=== PATIENT | female | born 1950 | race Caucasian/White ===

== ENCOUNTER → 2020-07-01 10:03 | Outpatient (BNVA) | payer MEDICARE, SELFPAY | PROVIDERS: PCP Internal Medicine; Visit Provider Internal Medicine Cardiovascular Disease | DX: I10 Essential (primary) hypertension (principal); R00.2 Palpitations | CPT/HCPCS: 93005; 99202 ==

== ENCOUNTER 2020-07-12 08:24 | Outpatient (REF) | payer MEDICARE, SELFPAY ==
[2020-07-12 11:03] LABS: MANUAL DIFF FLAG NO
[2020-07-12 11:10] LABS: Basophils Percent Auto 0.5 % (0-2); Eosinophils Absolute Auto 0.1 X10*3/uL (0.0-0.4); Eosinophils Percent Auto 2.2 % (0-4); Hematocrit 43.2 % (37-47); Lymphocytes Absolute Auto 1.3 X10*3/uL (1.2-4.9); Lymphocytes Percent Auto 33.2 % (20-40); Mean Corpuscular HGB Conc 32.4 g/dl (31.0-35.0); Mean Corpuscular Hemoglobin 31.5 pg (27.0-33.0); Mean Corpuscular Volume 97.3 fL (80-98); Mean Platelet Volume 11.1 fL (9.4-12.3); Monocytes Absolute Auto 0.3 X10*3/uL (0.1-1.2); Monocytes Percent Auto 7.2 % (2-11); Neutrophils Absolute Auto 2.3 X10*3/uL (2.0-8.3); Neutrophils Percent Auto 56.9 % (45-73); Platelet Count 211 X10*3/uL (160-400); Red Blood Count 4.44 X10*6/uL (4.20-5.50); Red Cell Distribution Width 12.4 % (11.0-16.0)
[2020-07-12 11:29] LABS: Alanine Aminotransferase 26 U/L (0-31); Albumin Level 4.1 g/dL (3.5-5.0); Alkaline Phosphatase 57 U/L (39-117); Anion Gap 11 (12-20); Aspartate Amino Transferase 33 U/L (5-31); Bilirubin Total 0.9 mg/dL (0.0-1.0); Blood Urea Nitrogen 12 mg/dL (9-16); Calcium 9.2 mg/dL (8.4-10.2); Carbon Dioxide 31 mmol/L (22-29); Chloride 105 mmol/L (96-108); Cholesterol 194 mg/dL; Estimated Glomerular Filt Rate > 60; Glucose Fasting 85 mg/dL (60-99); HDL Cholesterol 87 mg/dL; LDL Cholesterol Calculated 94 mg/dl; Potassium 4.9 mmol/L (3.3-5.1); Sodium 142 mmol/L (135-145); Total Protein 6.8 g/dL (6.5-8.0); Triglycerides 69 mg/dL
== END 2020-07-12 08:25 | disposition home or self-care (01) ==
LOC: HO.HMGCLDS 08:24
PROVIDERS: PCP Internal Medicine; Visit Provider Internal Medicine
DX: R00.2 Palpitations (principal); E78.5 Hyperlipidemia, unspecified; I10 Essential (primary) hypertension; K27.9 Peptic ulcer, site unspecified, unspecified as acute or chronic, without hemorrhage or perforation; M85.859 Other specified disorders of bone density and structure, unspecified thigh; Z78.0 Asymptomatic menopausal state
CPT/HCPCS: 36415; 80053; 80061; 82306; 85025

== ENCOUNTER 2020-11-24 07:49 | Outpatient (REF) | payer MEDICARE, SELFPAY ==
[2020-11-24 12:07] LABS: Alanine Aminotransferase 24 U/L (0-31); Aspartate Amino Transferase 32 U/L (5-31); Cholesterol 210 mg/dL; HDL Cholesterol 82 mg/dL; LDL Cholesterol Calculated 116 mg/dl; Triglycerides 64 mg/dL
== END 2020-11-24 07:50 | disposition home or self-care (01) ==
LOC: HO.HMGCLDS 07:49
PROVIDERS: PCP Internal Medicine; Visit Provider Internal Medicine
DX: E78.5 Hyperlipidemia, unspecified (principal)
CPT/HCPCS: 36415; 80061; 84450; 84460

== ENCOUNTER 2020-12-19 09:01 | Emergency (ER) | payer MEDICARE, SELFPAY ==
--- NOTE | 2020-12-19 | ECG_ITS ---
Test Reason : CHEST PAIN Blood Pressure : / mmHG Vent. Rate : 057 BPM Atrial Rate : 057 BPM P-R Int : 198 ms QRS Dur : 082 ms QT Int : 382 ms P-R-T Axes : 056 -10 041 degrees QTc Int : 371 ms Sinus bradycardia Otherwise normal ECG When compared with ECG of 12-MAR-2019 08:33, No significant change was found Referred By: Generic ED Physician Electronically Signed By:YOSHI ANGUIANO
--- NOTE | ~2020-12-19 | CT_ITS ---
EXAMINATION: CT ANGIOGRAM OF THE CHEST WITH AND WITHOUT CONTRAST (CT PULMONARY ANGIOGRAM FOR PE) CLINICAL INFORMATION: Reason for Exam Rule out PE/dissection. Substernal CP rad to back RUE COMPARISON: Chest x-ray of same day TECHNIQUE: Prior to contrast administration, noncontrast localization images were obtained. Subsequently, multidetector volumetric imaging was performed from the thoracic inlet to below the diaphragms following the administration of 80 mL Omnipaque 350 intravenous contrast. No contrast reaction reported Sagittal, coronal, and MIP oblique sagittal reformatted images were obtained on the CT workstation, uploaded to PACS, and reviewed. This CT examination was performed using dose optimization techniques as appropriate, variously including the following: *Automated exposure control *Adjustment of mA and/or kV according to patient size (this includes techniques or standardized protocols for targeted exams where dose is matched to indication/reason for exam; i.e. extremities or head) *Use of iterative reconstruction technique Total exam dose-length product 205 mGy-cm FINDINGS: Motion artifact present. QUALITY OF STUDY/CONTRAST BOLUS: Satisfactory. PULMONARY ARTERIES: No central or segmental pulmonary emboli. THORACIC AORTA: No aneurysm or dissection. LUNG: Central airways are patent. Mild changes of centrilobular emphysema seen within the upper lobes. No confluent lung disease identified. No significant bronchial wall thickening or bronchiectasis. There are some calcified granulomas. No suspicious lung lesions. PLEURA: No pleural effusion or pneumothorax. MEDIASTINUM: Normal heart size. No pericardial effusion. No hilar or mediastinal lymphadenopathy. No evidence of septal bowing or right heart strain. CHEST WALL/AXILLA: No axillary or internal mammary lymphadenopathy. OSSEOUS STRUCTURES: No acute or suspicious osseous abnormality. UPPER ABDOMEN: Unremarkable. No reflux of contrast into the hepatic veins to suggest elevated right heart pressures. CT/CT angio chest PE protocol IMPRESSION: No evidence of acute pulmonary artery embolus. No thoracic aortic aneurysm or dissection. Old granulomatous disease. VTE: negative
--- NOTE | ~2020-12-19 | XR_ITS ---
EXAMINATION: XR CHEST CLINICAL INFORMATION: Chest pain COMPARISON: None TECHNIQUE: 2 views of the chest were obtained. FINDINGS: Slight ectasia of the aortic arch. Mild tortuosity of the descending aorta. No mediastinal widening. Cardiac size is within normal limits with left ventricular configuration. There is no hilar mass. No vascular congestion. Lung volumes are within normal limits. No consolidation or major zone of atelectasis. The visualized pleural margins are within normal limits. There is some osteopenia with minimal degenerative change in the spine. XR/XR chest 2V IMPRESSION: No pneumonia or edema.
[2020-12-19 09:27] VITALS: BP 145/76; PULSE 65; RESP 18; TEMP 37; O2SAT 100; BMI 26.6
[2020-12-19 09:44] LABS: MANUAL DIFF FLAG NO
[2020-12-19 10:00] VITALS: BP 145/78; PULSE 60; TEMP 36.8; O2SAT 100
[2020-12-19 10:09] LABS: B Type Natriuretic Peptide 74 pg/mL (<100)
[2020-12-19 10:12] LABS: Basophils Percent Auto 0.5 % (0-2); Eosinophils Absolute Auto 0.1 X10*3/uL (0.0-0.4); Eosinophils Percent Auto 1.4 % (0-4); Hemoglobin 12.9 g/dl (12.0-16.0); Imm Gran Abs Auto 0.01 X10*3/uL (0.00-0.03); Imm Gran Pct Auto 0.3 % (0.0-0.4); Lymphocytes Absolute Auto 0.9 X10*3/uL (1.2-4.9); Lymphocytes Percent Auto 23.2 % (20-40); Mean Corpuscular HGB Conc 33.9 g/dl (31.0-35.0); Mean Corpuscular Hemoglobin 32.2 pg (27.0-33.0); Mean Corpuscular Volume 94.8 fL (80-98); Mean Platelet Volume 9.7 fL (9.4-12.3); Monocytes Absolute Auto 0.3 X10*3/uL (0.1-1.2); Monocytes Percent Auto 8.7 % (2-11); Neutrophils Absolute Auto 2.4 X10*3/uL (2.0-8.3); Neutrophils Percent Auto 65.9 % (45-73); Platelet Count 188 X10*3/uL (160-400); Red Blood Count 4.01 X10*6/uL (4.20-5.50); Red Cell Distribution Width 12.1 % (11.0-16.0); White Blood Count 3.7 X10*3/uL (4.8-10.8)
[2020-12-19 10:19] LABS: Alanine Aminotransferase 20 U/L (0-31); Albumin Level 3.7 g/dL (3.5-5.0); Alkaline Phosphatase 50 U/L (39-117); Anion Gap 11 (12-20); Aspartate Amino Transferase 33 U/L (5-31); Bilirubin Direct 0.2 mg/dL (0.0-0.5); Bilirubin Total 0.5 mg/dL (0.0-1.0); Blood Urea Nitrogen 8 mg/dL (9-16); Calcium 8.9 mg/dL (8.4-10.2); Carbon Dioxide 27 mmol/L (22-29); Chloride 100 mmol/L (96-108); Creatinine Clr Calc Pharmacy 49.3; Estimated Glomerular Filt Rate > 60; Glucose Random 99 mg/dL (60-115); Lipase 55 U/L (8-78); Magnesium 1.9 mg/dL (1.6-2.6); Potassium 4.7 mmol/L (3.3-5.1); Sodium 133 mmol/L (135-145); Total Protein 6.2 g/dL (6.5-8.0)
--- NOTE | 2020-12-19 10:20 | ED.CHESTPAIN ---
HPI - Chest Pain General Chief Complaint: Chest Pain Stated Complaint: CHEST PAIN Time Seen by Provider: 12/19/20 09:10 Source: patient Mode of arrival: ambulatory History of Present Illness HPI narrative: 70-year-old female with a past medical history of anxiety, diverticulitis, hyperlipidemia, GERD, HTN, palpitations, IBS, PUD, presenting to the ED complaining of substernal/right-sided chest pressure radiating to back and RUE waking up from sleep starting around 4:00 a.m. Pain described as sharp, with associated SOB, nausea, chills, and RUE weakness secondary to pain. Reports pain worse with deep breathing/movement. Denies fever, abdominal pain, vomiting/diarrhea, LE edema, recent travel, sick contacts, history of blood clots Related Data Home Medications Medication Instructions Recorded Confirmed antiarthritic combination no.2 900 mg PO 06/22/20 11/30/20 mg tablet calcium carbonate 600 mg (1,500 cap PO 06/22/20 11/30/20 mg)-vitamin D3 500 unit capsule fexofenadine 180 mg tablet 180 mg PO DAILY 06/22/20 11/30/20 flu vacc [id number](65yr up)-PF 240 ml IM 06/22/20 11/30/20 mcg/0.7 mL intramuscular syringe lutein 20 mg capsule 20 mg PO DAILY 06/22/20 11/30/20 meclizine 25 mg tablet 25 mg PO Q8H PRN 06/22/20 11/30/20 omega-3 fatty acids 1,000 mg 1,000 mg PO DAILY 06/22/20 11/30/20 capsule omeprazole 20 mg capsule,delayed 20 mg PO BID 06/22/20 11/30/20 release propylene glycol 0.6 % eye drops 1 drp OPHTHALMIC (EYE) DAILY PRN 06/22/20 11/30/20 varicella-zoster glycoE [id number] IM 06/22/20 11/30/20 adj(PF) 50 mcg/0.5 mL IM susp, kit coenzyme [id number] 100 mg-100 cap PO .QOD cap 09/29/20 11/30/20 unit capsule docusate sodium 100 mg capsule 100 mg PO .qod cap 09/29/20 11/30/20 wheat dextrin 3 gram/3.5 gram oral 1.5 g PO BID 09/29/20 11/30/20 powder Previous Rx's Medication Instructions Recorded carvedilol 3.125 mg tablet 3.125 mg PO BID #120 tab 07/01/20 atorvastatin 40 mg tablet 40 mg PO DAILY #90 tab 12/13/20 vitamin with calcium 1 tab PO DAILY #90 tab 12/13/20 no.72-iron 27 mg-folic acid 1 mg tablet Allergies Allergy/AdvReac Type Severity Reaction Status Date / Time metronidazole [From FLAGYL] AdvReac Mild ANOREXIA Verified 11/30/20 11:49 From Avelox AdvReac Mild NASUEA,CONF Uncoded 02/12/20 16:00 USION Review of Systems Review of Systems: Constitutional: No Fever, + Chills, No Fatigue, No Malaise Eyes: No Eye Pain, No Vision Changes Cardiovascular: + Chest Pain, No SOB, No Edema, No Palpitations Respiratory: No Cough, No Dyspnea Gastrointestinal: + Nausea, No Vomiting, No Diarrhea, No Constipation, No Abdominal pain Genitourinary: No Dysuria, No Hematuria Musculoskeletal: No joint pain, No Myalgias, No Joint Swelling Skin: No Skin Lesions, No rash Neuro: + Weakness, No Numbness, No Dizziness, No Headache Yes all other systems are reviewed and are negative [facility] Past Medical History Attestation statement: The following information was validated with the patient. Medical History Anxiety Cemento-osseous dysplasia Diverticulitis Dyslipidemia Esophagus, Sharma's Essential hypertension GERD with stricture Intermittent palpitations Irritable bowel syndrome with constipation Osteopenia of hip PUD (peptic ulcer disease) Salivary duct obstruction Skin lesion of back Surgical History Hx of colonoscopy Family History Family History Father No problems noted. Mother No problems noted. Brother Hypertension Other Substance abuse Social History Social History Alcohol intake: current Patient Tobacco Use Status: Former Tobacco user Tobacco use type: Cigarette Cigarette Packs Per Day: 3 Cigarettes Per Day: 60 Years Smoked: 20 Advance Directives: Yes Advance Directives Information Provided: Yes Advance Directives on File: No Physical Exam Vital Signs: Vital Signs: Last Vital Signs Temp 98.2 F 12/19/20 10:00 Pulse 60 12/19/20 10:00 Resp 18 12/19/20 09:27 BP 145/78 H 12/19/20 10:00 Pulse Ox 100 12/19/20 10:00 Body Mass Index 26.6 Const: General: cooperative, healthy appearing and no acute distress Orientation/consciousness: patient oriented x3 Limitations: no limitations HENMT: Head: Yes normal to inspection Ears: hearing grossly normal bilaterally General nose exam: Normal external nose present Face and sinus: Yes normal facial exam Eyes: General: appearance normal, both eyes and all related structures EOM: EOMs intact bilaterally Neck: Neck: Yes normal visual inspection and Yes no meningeal signs Chest: Chest palpation & inspection: normal inspection of the chest and no crepitus Resp: Effort & Inspection: normal respiratory effort Auscultation: clear to auscultation bilaterally, no rales, no rhonchi and no wheezes Cardio: Rate: regular rate Heart sounds: S1 normal heart sound present and S2 normal heart sound present GI: Inspection: Yes normal to inspection Palpation (GI): Soft to palpation, nontender, no guarding and not rigid Skin: Rashes: no rashes Wounds: no wounds Neuro: General: patient oriented x3, tone normal, moves all extremities, no meningeal signs and no focal motor deficits Gait exam (Neuro): Normal gait present Motor exam (neuro): 5/5 motor strength present throughout Extrem: General: Yes normal to inspection, Yes no pedal edema and Yes no calf tenderness Course Course Course Narrative: -1029--chronic leukopenia 3.7, H&H is stable, mild hyponatremia of 133, labs otherwise unremarkable/at pts baseline, initial troponin 4 >> will obtain 3 hour repeat XR chest 2V IMPRESSION: No pneumonia or edema. >> will obtain CTA to rule out PE/dissection 1249-CT angio chest PE protocol IMPRESSION: No evidence of acute pulmonary artery embolus. No thoracic aortic aneurysm or dissection. Old granulomatous disease. VTE: negative -1316--repeat troponin 6.3, 50% rise will consult Cardiology. Spoke to Cardiology, , unlikely be cardiac in nature with troponins being so low & patients with active chest pain. Recommended DC patient home, and obtain back stress test tomorrow. This is discussed with patient and at bedside, they are comfortable with plan, stress test order was placed. Worrisome signs and symptoms including persistent or worsening pain/SOB or symptoms to return to the ED immediately, patient verbalized understanding feel safe for discharge home MDM - Chest Pain MDM Narrative Medical decision making narrative: 70-year-old female with a past medical history of anxiety, diverticulitis, hyperlipidemia, GERD, HTN, palpitations, IBS, PUD, presenting to the ED complaining of substernal/right-sided chest pressure radiating to back and RUE waking up from sleep starting around 4:00 a.m. Pain described as sharp, with associated SOB, nausea, chills, and RUE weakness secondary to pain. On exam VSS, NAD, lungs CTA, no LE edema/calf tenderness, no focal neuro deficits. Concern for ACS vs PE/dissection vs MSK pain. Lower concern for AAA Plan: EKG, labs, CXR, CT chest, reassess Medical Records Data Attestation: I reviewed the patient's medical records. Lab Data Attestation: I reviewed the patient's lab results. Result diagrams: 12/19/20 09:38 12/19/20 09:38 Labs: Lab Results 12/19/20 12/19/20 12/19/20 Range/Units 09:38 09:38 09:38 WBC 3.7 L (4.8-10.8) X10*3/uL RBC 4.01 L (4.20-5.50) X10*6/uL Hgb 12.9 (12.0-16.0) g/dl Hct 38.0 (37-47) % MCV 94.8 (80-98) fL MCH 32.2 (27.0-33.0) pg MCHC 33.9 (31.0-35.0) g/dl RDW 12.1 (11.0-16.0) % Plt Count 188 (160-400) X10*3/uL MPV 9.7 (9.4-12.3) fL Immature Gran % (Auto) 0.3 (0.0-0.4) % Neut % (Auto) 65.9 (45-73) % Lymph % (Auto) 23.2 (20-40) % [place] % (Auto) 8.7 (2-11) % Eos % (Auto) 1.4 (0-4) % Baso % (Auto) 0.5 (0-2) % Lymph # (Auto) 0.9 L (1.2-4.9) X10*3/uL [place] # (Auto) 0.3 (0.1-1.2) X10*3/uL Eos # (Auto) 0.1 (0.0-0.4) X10*3/uL Baso # (Auto) 0.0 (0.0-0.2) X10*3/uL Abs Immat Gran (auto) 0.01 (0.00-0.03) X10*3/uL Absolute Neuts (auto) 2.4 (2.0-8.3) X10*3/uL Absolute Nucleated RBC 0.000 (0.0-0.012) X10*3/uL Nucleated RBC % (auto) 0.0 (0.0-0.2) /100WBC Sodium 133 L (135-145) mmol/L Potassium 4.7 (3.3-5.1) mmol/L Chloride 100 (96-108) mmol/L Carbon Dioxide 27 (22-29) mmol/L Anion Gap 11 L (12-20) BUN 8 L (9-16) mg/dL Creatinine 0.86 (0.5-1.4) mg/dL Estim Creat Clear Calc 49.3 Estimated GFR > 60 Random Glucose 99 (60-115) mg/dL Calcium 8.9 (8.4-10.2) mg/dL Magnesium 1.9 (1.6-2.6) mg/dL Total Bilirubin 0.5 (0.0-1.0) mg/dL Direct Bilirubin 0.2 (0.0-0.5) mg/dL AST 33 H (5-31) U/L ALT 20 (0-31) U/L Alkaline Phosphatase 50 (39-117) U/L Troponin I High Sens 4.0 (<3.5-17.0) ng/L B-Natriuretic Peptide (<100) pg/mL Total Protein 6.2 L (6.5-8.0) g/dL Albumin 3.7 (3.5-5.0) g/dL Lipase 55 (8-78) U/L Urine Color Urine Appearance Urine pH (5.0-8.0) Ur Specific [place] (1.005-1.025) Urine Protein (NEG-TRACE) MG/DL Urine Glucose (UA) (NEG) MG/DL Urine Ketones (NEG) MG/DL Urine Blood (NEG) Urine Nitrite (NEG) Ur Leukocyte Esterase (NEG) 12/19/20 12/19/20 12/19/20 Range/Units 09:38 10:37 12:35 WBC (4.8-10.8) X10*3/uL RBC (4.20-5.50) X10*6/uL Hgb (12.0-16.0) g/dl Hct (37-47) % MCV (80-98) fL MCH (27.0-33.0) pg MCHC (31.0-35.0) g/dl RDW (11.0-16.0) % Plt Count (160-400) X10*3/uL MPV (9.4-12.3) fL Immature Gran % (Auto) (0.0-0.4) % Neut % (Auto) (45-73) % Lymph % (Auto) (20-40) % [place] % (Auto) (2-11) % Eos % (Auto) (0-4) % Baso % (Auto) (0-2) % Lymph # (Auto) (1.2-4.9) X10*3/uL [place] # (Auto) (0.1-1.2) X10*3/uL Eos # (Auto) (0.0-0.4) X10*3/uL Baso # (Auto) (0.0-0.2) X10*3/uL Abs Immat Gran (auto) (0.00-0.03) X10*3/uL Absolute Neuts (auto) (2.0-8.3) X10*3/uL Absolute Nucleated RBC (0.0-0.012) X10*3/uL Nucleated RBC % (auto) (0.0-0.2) /100WBC Sodium (135-145) mmol/L Potassium (3.3-5.1) mmol/L Chloride (96-108) mmol/L Carbon Dioxide (22-29) mmol/L Anion Gap (12-20) BUN (9-16) mg/dL Creatinine (0.5-1.4) mg/dL Estim Creat Clear Calc Estimated GFR Random Glucose (60-115) mg/dL Calcium (8.4-10.2) mg/dL Magnesium (1.6-2.6) mg/dL Total Bilirubin (0.0-1.0) mg/dL Direct Bilirubin (0.0-0.5) mg/dL AST (5-31) U/L ALT (0-31) U/L Alkaline Phosphatase (39-117) U/L Troponin I High Sens 6.3 D (<3.5-17.0) ng/L B-Natriuretic Peptide 74 (<100) pg/mL Total Protein (6.5-8.0) g/dL Albumin (3.5-5.0) g/dL Lipase (8-78) U/L Urine Color YELLOW Urine Appearance CLEAR Urine pH 7.0 (5.0-8.0) Ur Specific [place] <= 1.005 (1.005-1.025) Urine Protein NEG (NEG-TRACE) MG/DL Urine Glucose (UA) NEG (NEG) MG/DL Urine Ketones NEG (NEG) MG/DL Urine Blood NEG (NEG) Urine Nitrite NEG (NEG) Ur Leukocyte Esterase NEG (NEG) ECG Data ECG #1: Attestation: I personally reviewed and interpreted this ECG as follows: ECG interpretation date: 12/19/20 ECG interpretation time: 09:10 Interpretation: EKG sinus bradycardia 3-57. QTC 370 ostomy/nonischemic Discharge Plan Discharge Clinical Impression: Chest pain Patient Disposition: Home, Self-Care Instructions: Chest Pain (ED) Additional Instructions: Your CT scan was negative for any blood clot, pneumonia, or dissection Your blood work did have mild elevation in her heart enzymes You will be obtaining a stress test tomorrow, do not drink any caffeine until after this test is completed You will be contacted by the office for scheduling If her symptoms persist or worsen, become unbearable, if shortness of breath, swelling in your legs, fever, cough please return to the ED immediately Prescriptions: No Action Vitamin Plus Low Iron 27 mg iron- 1 mg tablet 1 tab PO DAILY Qty: 90 RF: 0 atorvastatin 40 mg tablet 40 mg PO DAILY Qty: 90 RF: 1 calcium carbonate-vitamin D3 [Calcium 600 with Vitamin D3] 600 mg(1,500mg) -500 unit capsule PO RF: 0 glucosamine-chondroitin 900 mg tablet PO RF: 0 omega-3 fatty acids 1,000 mg capsule 1,000 mg PO DAILY RF: 0 lutein 20 mg capsule 20 mg PO DAILY RF: 0 Systane Balance 0.6 % drops 1 drp ophthalmic (eye) DAILY PRNRF: 0 Fluzone HighDose Quad 20-21 PF 240 mcg/0.7 mL syringe IM RF: 0 omeprazole 20 mg capsule,delayed release(DR/EC) 20 mg PO BID RF: 0 fexofenadine 180 mg tablet 180 mg PO DAILY RF: 0 meclizine 25 mg tablet 25 mg PO Q8H PRN (Reason: dizziness) RF: 0 Shingrix (PF) 50 mcg/0.5 mL suspension for reconstitution IM RF: 0 coenzyme [id number] E 100-100 mg-unit capsule PO .QOD RF: 0 wheat dextrin 3 gram/3.5 gram powder 1.5 g PO BID RF: 0 docusate sodium [Colace] 100 mg capsule 100 mg PO .qod RF: 0 carvedilol 3.125 mg tablet 3.125 mg PO BID Qty: 120 RF: 3 Referrals: Suresh Saini MD [Physician] - 1 day
[2020-12-19 10:43] LABS: Glucose Urine UA NEG (NEG); Leukocyte Esterase Urine NEG (NEG); Nitrite Urine NEG (NEG); Specific Gravity - Urine <= 1.005 (1.005-1.025); Urine Blood NEG (NEG); Urine Ketones NEG (NEG); Urine Protein NEG (NEG-TRACE)
[2020-12-19 10:45] LABS: Appearance Urine CLEAR; Color Urine YELLOW
[2020-12-19] MEDS: Aspirin Enteric Coated 325 MG TABLET.DR PO (10:50)
[2020-12-19] MEDS: iohexoL 350 MG/ML 100 ML INFUS..BTL IV (11:15)
[2020-12-19 13:06] LABS: Troponin-I High Sensitivity 6.3 ng/L (<3.5-17.0)
== END 2020-12-19 14:47 | disposition home or self-care (01) ==
PROVIDERS: Physician Assistant; Emergency Provider Emergency Medicine; PCP Internal Medicine
DX: R07.9 Chest pain, unspecified (principal); R06.02 Shortness of breath; F41.9 Anxiety disorder, unspecified; E78.5 Hyperlipidemia, unspecified; I10 Essential (primary) hypertension; Z87.891 Personal history of nicotine dependence
CPT/HCPCS: 36415; 71046; 71275; 80048; 80076; 81003; 83690; 83735; 83880; 84484; 85025; 93005; 99284; Q9967

== ENCOUNTER → 2020-12-21 08:53 | Outpatient (REF) | payer MEDICARE, SELFPAY ==
--- NOTE | 2020-12-21 08:58 | CA_ITS ---
Acquisition Time: 2020-12-21 08:59:33 Total Exercise Time: 00:09:00 Test Indications: cp unspecified Medications: Protocol: IVETH Max HR: 141 BPM 92% of Pred: 152 BPM Max BP: 144/082 mmHG Max Work Load: 10.1 METS Exercise stress test with exercise 9 min of Iveth protocol, without anginal symptoms, without arrythmia, with normotensive response to exercise, without EKG changes meeting criteria for ischemia. Test reviewed with Dr Disla. Referred By: Suresh Saini Overread By: JOHNNY SUAREZ
== END ==
LOC: HO.CARD 08:53
PROVIDERS: Visit Provider Internal Medicine Cardiovascular Disease
DX: R07.9 Chest pain, unspecified (principal)
CPT/HCPCS: 93017

== ENCOUNTER → 2021-01-24 10:35 | Outpatient (BNVA) | payer MEDICARE, SELFPAY | PROVIDERS: PCP Internal Medicine; Referring Provider Internal Medicine; Visit Provider Internal Medicine Cardiovascular Disease | DX: R00.2 Palpitations (principal); I10 Essential (primary) hypertension; R07.9 Chest pain, unspecified; E78.5 Hyperlipidemia, unspecified; F41.9 Anxiety disorder, unspecified; Z87.891 Personal history of nicotine dependence; Z88.1 Allergy status to other antibiotic agents; Z79.899 Other long term (current) drug therapy | CPT/HCPCS: 99212 ==

== ENCOUNTER 2021-03-25 07:55 | Outpatient (REF) | payer MEDICARE, SELFPAY ==
[2021-03-25 11:51] LABS: Alanine Aminotransferase 25 U/L (0-31); Anion Gap 11 (12-20); Aspartate Amino Transferase 31 U/L (5-31); Blood Urea Nitrogen 14 mg/dL (9-16); Calcium 9.3 mg/dL (8.4-10.2); Carbon Dioxide 29 mmol/L (22-29); Chloride 106 mmol/L (96-108); Cholesterol 233 mg/dL; Estimated Glomerular Filt Rate 58; Glucose Fasting 86 mg/dL (60-99); HDL Cholesterol 90 mg/dL; LDL Cholesterol Calculated 129 mg/dl; Potassium 4.8 mmol/L (3.3-5.1); Sodium 141 mmol/L (135-145); Triglycerides 70 mg/dL
[2021-03-25 12:12] LABS: Vitamin D 25-OH Total 66.5 ng/mL (>30)
== END 2021-03-25 07:56 | disposition home or self-care (01) ==
LOC: HO.HMGCLDS 07:55
PROVIDERS: PCP Internal Medicine; Visit Provider Internal Medicine
DX: E78.5 Hyperlipidemia, unspecified (principal); I10 Essential (primary) hypertension; M85.859 Other specified disorders of bone density and structure, unspecified thigh; Z78.0 Asymptomatic menopausal state
CPT/HCPCS: 36415; 80048; 80061; 82306; 84450; 84460

== ENCOUNTER → 2021-08-03 08:57 | Outpatient (BNVA) | payer MEDICARE, SELFPAY | PROVIDERS: PCP Internal Medicine; Referring Provider Internal Medicine; Visit Provider Internal Medicine Cardiovascular Disease | DX: I10 Essential (primary) hypertension (principal); R00.2 Palpitations | CPT/HCPCS: 93005; 99212 ==

== ENCOUNTER 2021-08-30 07:53 | Outpatient (REF) | payer MEDICARE, SELFPAY ==
[2021-08-30 11:54] LABS: Alanine Aminotransferase 25 U/L (0-31); Anion Gap 9 (12-20); Aspartate Amino Transferase 31 U/L (5-31); Blood Urea Nitrogen 11 mg/dL (9-16); Carbon Dioxide 32 mmol/L (22-29); Chloride 104 mmol/L (96-108); Cholesterol 202 mg/dL; Estimated Glomerular Filt Rate 51; Glucose Fasting 94 mg/dL (60-99); HDL Cholesterol 79 mg/dL; LDL Cholesterol Calculated 114 mg/dl; Potassium 5.1 mmol/L (3.3-5.1); Sodium 140 mmol/L (135-145); Triglycerides 49 mg/dL
[2021-08-30 12:12] LABS: Vitamin D 25-OH Total 71.9 ng/mL (>30)
== END 2021-08-30 07:54 | disposition home or self-care (01) ==
LOC: HO.HMGCLDS 07:53
PROVIDERS: Visit Provider Internal Medicine
DX: M85.859 Other specified disorders of bone density and structure, unspecified thigh (principal); F41.9 Anxiety disorder, unspecified; I10 Essential (primary) hypertension; E78.5 Hyperlipidemia, unspecified; Z78.0 Asymptomatic menopausal state
CPT/HCPCS: 36415; 80048; 80061; 82306; 84450; 84460

== ENCOUNTER 2022-03-07 07:43 | Outpatient (REF) | payer MEDICARE, SELFPAY ==
[2022-03-07 11:51] LABS: Alanine Aminotransferase 28 U/L (0-31); Anion Gap 13 (12-20); Aspartate Amino Transferase 32 U/L (5-31); Blood Urea Nitrogen 12 mg/dL (9-16); Calcium 9.4 mg/dL (8.4-10.2); Carbon Dioxide 29 mmol/L (22-29); Chloride 106 mmol/L (96-108); Cholesterol 211 mg/dL; Estimated Glomerular Filt Rate > 60; Glucose Fasting 89 mg/dL (60-99); HDL Cholesterol 75 mg/dL; LDL Cholesterol Calculated 120 mg/dl; Potassium 4.5 mmol/L (3.3-5.1); Sodium 143 mmol/L (135-145); Triglycerides 81 mg/dL
== END 2022-03-07 07:44 | disposition home or self-care (01) ==
LOC: HO.HMGCLDS 07:43
PROVIDERS: PCP Internal Medicine; Visit Provider Internal Medicine
DX: E78.5 Hyperlipidemia, unspecified (principal); I10 Essential (primary) hypertension
CPT/HCPCS: 36415; 80048; 80061; 84450; 84460

== ENCOUNTER → 2022-08-03 08:44 | Outpatient (BNVA) | payer MEDICARE, SELFPAY | PROVIDERS: PCP Internal Medicine; Referring Provider Internal Medicine; Visit Provider Internal Medicine Cardiovascular Disease | DX: I10 Essential (primary) hypertension (principal); R00.2 Palpitations | CPT/HCPCS: 93005; 99212 ==

== ENCOUNTER 2022-08-24 07:41 | Outpatient (REF) | payer MEDICARE, SELFPAY ==
[2022-08-24 11:46] LABS: Alanine Aminotransferase 28 U/L (0-31); Aspartate Amino Transferase 30 U/L (5-31); Cholesterol 241 mg/dL; HDL Cholesterol 87 mg/dL; LDL Cholesterol Calculated 143 mg/dl; Triglycerides 55 mg/dL
== END 2022-08-24 07:42 | disposition home or self-care (01) ==
LOC: HO.HMGCLDS 07:41
PROVIDERS: PCP Internal Medicine; Visit Provider Internal Medicine
DX: E78.5 Hyperlipidemia, unspecified (principal)
CPT/HCPCS: 36415; 80061; 84450; 84460

== ENCOUNTER 2023-03-03 07:42 | Outpatient (REF) | payer MEDICARE, SELFPAY | END 2023-03-03 07:43 | disposition home or self-care (01) | LOC: HO.HMGCLDS 07:42 | PROVIDERS: PCP Internal Medicine; Visit Provider Internal Medicine | DX: I10 Essential (primary) hypertension (principal); E78.5 Hyperlipidemia, unspecified | CPT/HCPCS: 36415; 80048; 80061; 84450; 84460 ==

== ENCOUNTER 2023-03-05 13:03 | Outpatient (AMB) | payer MEDICARE, SELFPAY ==
[2023-03-05 13:06] VITALS: BP 106/72; BMI 25.0
--- NOTE | 2023-03-05 13:06 | MHC.PC.OV ---
Vital Signs 03/05/23 13:06 Height 4 ft 11 in Weight 124 lb BMI 25.0 BP 106/72 Blood Pressure Location Lt brachial Position Sitting Intake Visit Reasons: 6m follow up lipids Intake Note: Pt is here today for her 6mo. f/u lipids Allergies metronidazole [From FLAGYL] Adverse Reaction (Mild, Verified 03/05/23 13:34) ANOREXIA From Avelox Adverse Reaction (Mild, Uncoded 03/05/23 13:34) NASUEA,CONFUSION Medication List - Last Reconciled 03/05/23 by Carolina Fairbanks MD antiarthritic combination no.2 (glucosamine-chondroitin) mg PO atorvastatin 40 mg PO DAILY calcium carbonate-vitamin D3 600 mg-12.5 mcg (500 unit) (Calcium 600 with Vitamin D3) caps PO carvedilol 3.125 mg PO BID coenzyme S23-obunvhl E 100-100 mg-unit caps PO .QOD fexofenadine 180 mg PO DAILY PRN fluticasone propionate 50 mcg/actuation (Flonase Allergy Relief) 1 spray intranasal DAILY lutein 20 mg PO DAILY meclizine 25 mg PO Q8H PRN omega 2-wuo-elp-fish-turmeric 417 mg-120 mg- 276 mg-600 mg 1 cap PO DAILY omeprazole 20 mg PO ONCE PNV,calcium 21-fpib-oqnku acid 27 mg iron- 1 mg ( Vitamins Plus Low Iron) 1 tab PO DAILY propylene glycol 0.6% (Systane Balance) 1 drp ophthalmic (eye) DAILY PRN wheat dextrin (Benefiber Clear Sugar Free(dextrin)) 1 packet PO DAILY Tobacco use date assessed: 03/05/23 Fall risk assessment: No Falls in past year Last assessed Fall Risk: 03/05/23 Dental Screening Dental Screen Date: 03/05/23 Did you have a dental visit in the last 12 months?: Yes Did you have a dental problem in the last 6 months where you did not have access to dental care?: Yes Was dental information given to patient?: Patient has dentist HPI 6m follow up lipids HPI Details 72-year-old lady with dyslipidemia, here today for follow-up. She has been compliant with taking her medications, has follows a healthy diet, but admits to not getting much exercise lately, as she is busy babysitting her grandchild 3 to 4 times a week. She has been feeling well with no complaints at present time. [facility] Medical History Congestion of nasal sinus Post-nasal drainage Macular degeneration of left eye Chest pain Irritable bowel syndrome with constipation Skin lesion of back Diverticulitis Salivary duct obstruction GERD with stricture Esophagus, Sharma's Intermittent palpitations Osteopenia of hip PUD (peptic ulcer disease) Cemento-osseous dysplasia Anxiety Essential hypertension Dyslipidemia Surgical History Hx of colonoscopy Family History Father No problems noted. Mother No problems noted. Brother Hypertension Other Substance abuse Social [facility] Alcohol intake: current Patient Tobacco Use Status: Former Tobacco user Quit Date: 34 years ago Tobacco use type: Cigarette e-Cigarette/Vaping Use: Never Used Current occupational status: retired Cognitive needs: No Hearing needs: No Vision needs: Yes Questionnaire PHQ-9 Over the last 2 weeks, how often have you been bothered by any of the following problems? Depression Screening Interpretation: Negative Depression Screening Done: Yes Source: Developed by Drs. Servando Baca, Kylee Hicks, Bryan Choe and colleagues, with an educational tiesha from [employer]. Thrive Questionnaire Date Thrive assessed: 09/04/22 RUBEN-7 AMB Questionnaire RUBEN-7 Date RUBEN - 7 assessed: 09/04/22 Source: Developed by Drs. Servando Baca, Bryan Andrade and colleagues, with an educational tiesha from [employer]. Review of Systems Const Denies weakness Card Denies chest pain, Denies chest pain with activity, Denies rapid heart rate, Denies edema, Denies lightheadedness, Denies dyspnea and Denies dyspnea on exertion Resp Denies cough, Denies dyspnea and Denies dyspnea on exertion GI Reports no additional complaints Musc Denies abnormal gait, Denies muscle cramps, Denies muscle weakness, Denies numbness and Denies tingling Neuro Denies abnormal gait, Denies numbness, Denies tingling and Denies weakness Physical exam (Primary Care) Vital Signs: Last Vital Signs BP 106/72 03/05/23 13:06 BMI result Body Mass Index 25.0 Tobacco/Smoking Status: Tobacco use Status Tobacco use date assessed 03/05/23 03/05/23 13:10 Patient Tobacco Use Status Former Tobacco user 03/05/23 13:07 Tobacco use type Cigarette 03/05/23 13:07 e-Cigarette/Vaping Use Never Used 03/05/23 13:07 Depression Screening Interpretation: Negative Thrive Assessment: Date of Thrive Assessment Date Thrive assessed 09/04/22 03/05/23 13:07 Const General: comfortable, no acute distress, alert and Physically active Nutritional Appearance: average body habitus Orientation/consciousness: patient oriented x3 HENMT General nose exam: Normal external nose present Face and sinus: Yes face symmetric Mouth: Normal oral and palatal mucosa present and moist mucous membranes Neck Neck: Yes full ROM, Yes no lymphadenopathy and Yes supple Resp Auscultation: clear to auscultation bilaterally Cardio Other: S1-S2 present regular rate and rhythm GI Palpation (GI): Soft to palpation, nontender, no guarding and no masses Auscultation: normal bowel sounds Neuro General: patient oriented x3 Extrem General: Yes full ROM, Yes no joint enlargement, Yes no clubbing, cyanosis or edema and Yes normal gait Results Reviewed Results Reviewed: Name: Zamzam Alfaro Age/Sex: 72/F : 1950 Unit#: [id number] Attend Dr: Carolina Fairbanks MD Re03/03/23 Status: DEP REF Location: [facility] Disch: SPEC : [id number] TIFFANIE: 03/03/23 STATUS: COMP REQ : [id number] RECD: 03/03/[address]: Carolina Fairbanks MD COMP: 03/03/23 ENTERED: 03/03/[address]: ORDERED: Met Prof Fast, AST, ALT, Lipid Panel Test Result Flag Reference Site Sodium 142 135-145 mmol/L Potassium 4.5 3.3-5.1 mmol/L CL 108 96-108 mmol/L CO2 25 22-29 mmol/L Gap 14 12-20 BUN 13 9-16 mg/dL Creat 0.90 0.5-1.4 mg/dL EGFR > 60 NOTE: For -Israeli individuals, multiply the result by 1.210. Chronic Kidney Disease: Estimated GFR < 60 mL/min/1.73m2 Severe Kidney Disease: Estimated GFR < 15 mL/min/1.73m2 FBS 84 60-99 mg/dL CA 9.2 8.4-10.2 mg/dL AST (GOT) 26 5-31 U/L ALT (GPT) 16 0-31 U/L Triglyceride 50 <150 mg/dL Desirable Triglyceride: less than 150 mg/dL Borderline High Triglyceride 150-199 mg/dL High Triglyceride: 200-499 mg/dL Very High Triglyceride: greater than or equal to 5OO mg/dL Cholesterol 193 <200 mg/dL Desirable Cholesterol: less than 200 mg/dL Borderline High Cholesterol: 200-239 mg/dL High Cholesterol: greater than 239 mg/dL LDL Calculated 102 H <100 mg/dL Desirable LDL: less than 100 mg/dL Near Optimal/Above Optimal LDL: 110-129 mg/dL Borderline High LDL: 130-159 mg/dL High LDL: 160-189 mg/dL Very High LDL: greater than or equal to 190 mg/dL HDL 81 >40 mg/dL Desirable HDL: greater than 40 mg/dL Note: This HDL assay may give artificially Assessment and Plan Assessment & Plan (1) Dyslipidemia: Code(s): E78.5 - Hyperlipidemia, unspecified Plan: Reviewed recent fasting lipid profile with patient with levels within normal limits . Continue with atorvastatin 40 mg daily , in addition to adherence to low-cholesterol diet and regular exercise, at least 30 minutes 3 to 4 times a week. Advised patient to make healthy food choices, eat more fruits, vegetables, whole grains, wild caught fish and low-fat dairy. Limit amount of meat and fried or fatty food products, as well as processed foods and fast foods. Follow-up scheduled with repeat fasting lipid panel in 6 months. (2) Essential hypertension: Code(s): I10 - Essential (primary) hypertension Plan: Blood pressure at goal of less than 130/80. Continue with current medication. Reinforced importance of following a low sodium diet, getting regular exercise, and lowering stress levels. Orders: Orders Lipid Panel 6 Months E78.5 - Hyperlipidemia, unspecified, I10 - Essential (primary) hypertension, M85.859 - Other specified disorders of bone density and structure, unspecified thigh Vitamin D 25-OH Total 6 Months E78.5 - Hyperlipidemia, unspecified, I10 - Essential (primary) hypertension, M85.859 - Other specified disorders of bone density and structure, unspecified thigh Basic Metabolic Panel Fasting 6 Months E78.5 - Hyperlipidemia, unspecified, I10 - Essential (primary) hypertension, M85.859 - Other specified disorders of bone density and structure, unspecified thigh Alanine Aminotransferase 6 Months E78.5 - Hyperlipidemia, unspecified, I10 - Essential (primary) hypertension, M85.859 - Other specified disorders of bone density and structure, unspecified thigh Aspartate Amino Transferase 6 Months E78.5 - Hyperlipidemia, unspecified, I10 - Essential (primary) hypertension, M85.859 - Other specified disorders of bone density and structure, unspecified thigh Coding Level of Care Code Est Pt Level 3 (26012) Diagnoses Dyslipidemia E78.5 Essential hypertension I10
== END 2023-03-05 13:51 | disposition home or self-care (01) ==
PROVIDERS: Visit Provider Internal Medicine
DX: E78.5 Hyperlipidemia, unspecified (principal); I10 Essential (primary) hypertension
CPT/HCPCS: 99213

== ENCOUNTER 2023-06-14 08:01 | Outpatient (AMB) | payer MEDICARE, SELFPAY ==
[2023-06-14 08:02] VITALS: BP 106/70; PULSE 66; TEMP 36.9; O2SAT 95; BMI 25.0
--- NOTE | 2023-06-14 08:02 | AM.OFFWIN_ITS ---
Intake Vital Signs 06/14/23 08:02 Height 4 ft 11 in Weight 124 lb BMI 25.0 BP 106/70 Blood Pressure Location Rt brachial Position Sitting Pulse 66 Pulse Source Pulse Oximeter Temp 98.4 F Temp Source Oral Pulse Oximetry (%) 95 Oxygen Delivery Method Room Air Intake Visit Reasons: EST/cough/congestion (lobby masked) Intake Note: pt is here for c.o cough and congestion, head congestion, patient states she felt like an elephant was sitting on her chest and wants to rule out pneumonia, this has been ongoing for about a week Patient Tobacco Use Status: Former Tobacco user Quit Date: 34 years ago Allergies metronidazole [From FLAGYL] Adverse Reaction (Mild, Verified 06/14/23 08:09) ANOREXIA From Avelox Adverse Reaction (Mild, Uncoded 03/05/23 13:34) NASUEA,CONFUSION Do you need a note to return to daycare/school/sports/work: No HPI HPI Comments History of Present Illness Details The patient presents to urgent care for evaluation nasal congestion and mild cough. She has had symptoms for about 4-5 days. She reports the cough is not bad however occasionally she is coughing up some sputum. The nasal drainage is clear. No fever chills or shortness of breath. [facility] Medical History Congestion of nasal sinus Post-nasal drainage Macular degeneration of left eye Chest pain Irritable bowel syndrome with constipation Skin lesion of back Diverticulitis Salivary duct obstruction GERD with stricture Esophagus, Shamra's Intermittent palpitations Osteopenia of hip PUD (peptic ulcer disease) Cemento-osseous dysplasia Anxiety Essential hypertension Dyslipidemia Surgical History Hx of colonoscopy Family History Father No problems noted. Mother No problems noted. Brother Hypertension Other Substance abuse Social History Housing: Condominium Alcohol intake: current Patient Tobacco Use Status: Former Tobacco user Quit Date: 34 years ago Tobacco use type: Cigarette e-Cigarette/Vaping Use: Never Used Current occupational status: retired Cognitive needs: No Hearing needs: No Vision needs: Yes Review of Systems Const Reports headache(s) and Denies increased appetite ENT Reports headache(s), Reports nasal obstruction, Denies disequilibrium, Reports post nasal drip, Reports sinus pain and Denies sore throat Card Denies radiating jaw, neck or arm pain and Denies dyspnea Resp Denies hemoptysis and Denies dyspnea Neuro Reports headache(s) and Denies disequilibrium Physical Exam Vital Signs: Last Vital Signs Temp 98.4 F 06/14/23 08:02 Pulse 66 06/14/23 08:02 BP 106/70 06/14/23 08:02 Pulse Ox 95 06/14/23 08:02 Oxygen Delivery Method Room Air 06/14/23 08:02 BMI result Body Mass Index 25.0 Const General: healthy appearing and no acute distress HEENT Head: Yes normal to inspection Ears: external ears normal Chest Chest palpation & inspection: normal inspection of the chest Resp Effort & Inspection: normal respiratory effort and able to speak in complete sentences Auscultation: clear to auscultation bilaterally Assessment & Plan Assessment & Plan (1) URI (upper respiratory infection): Code(s): J06.9 - Acute upper respiratory infection, unspecified Plan Symptoms consistent with viral URI. Patient urged to try OTC medications can try Mucinex. Patient well appearing does not need antibiotics or other further interventions. Coding Level of Care Code Est Pt Level 3 (31684) Diagnoses URI (upper respiratory infection) J06.9
== END 2023-06-14 09:06 | disposition home or self-care (01) ==
PROVIDERS: PCP Internal Medicine; Visit Provider Emergency Medicine
DX: J06.9 Acute upper respiratory infection, unspecified (principal)
CPT/HCPCS: 99213

== ENCOUNTER 2023-06-22 13:04 | Outpatient (AMB) | payer MEDICARE, SELFPAY ==
[2023-06-22 13:26] VITALS: BP 140/90; PULSE 70; TEMP 36.5; O2SAT 95; BMI 26.5
--- NOTE | 2023-06-22 13:26 | AM.OFFWIN_ITS ---
Intake Vital Signs 06/22/23 13:26 Height 4 ft 11 in Weight 59.421 kg BMI 26.5 BP 140/90 H Blood Pressure Location Lt brachial Position Sitting Pulse 70 Pulse Source Pulse Oximeter Temp 97.7 F Temp Source Temporal Artery Scan Pulse Oximetry (%) 95 Oxygen Delivery Method Room Air Intake Visit Reasons: EP cough sinus/lung pain [id number] Intake Note: pt is here today for cough sinus and lugs started 2 weeks ago Patient Tobacco Use Status: Former Tobacco user Quit Date: 34 years ago Allergies metronidazole [From FLAGYL] Adverse Reaction (Mild, Verified 06/22/23 13:29) ANOREXIA From Avelox Adverse Reaction (Mild, Uncoded 03/05/23 13:34) NASUEA,CONFUSION Do you need a note to return to daycare/school/sports/work: No HPI HPI Comments History of Present Illness Details 0259 73-year-old female history of anxiety, d iverticulitis, GERD, hypertension, hyperlipidemia, IBS, PUD presenting with sinus pressure, fatigue, malaise, cough that started about 2 weeks ago and does not seem to be improving. Denies sick contacts. Reports this feels like her typical sinus infection. Denies chest pain, shortness of breath, nausea, vomiting, abdominal pain, fevers, chills, headache, vision changes, dizziness and weakness. Physical exam w/ nasal congestion History and physical exam concerning for sinusitis vs bronchitis No signs of meningitis, encephalitis, pneumonia, PE, ACS, respiratory distress. Plan antibiotics and PCP follow-up. Educated patient on diagnosis and treatment plan, answered all question, patient verbalizes understanding. At this time patient will be discharged home, advised to return with new or worsening symptoms. Educated on worrisome signs and symptoms and when to return. At this time I feel comfortable discharge home. [facility] Medical History Congestion of nasal sinus Post-nasal drainage Macular degeneration of left eye Chest pain Irritable bowel syndrome with constipation Skin lesion of back Diverticulitis Salivary duct obstruction GERD with stricture Esophagus, Sharma's Intermittent palpitations Osteopenia of hip PUD (peptic ulcer disease) Cemento-osseous dysplasia Anxiety Essential hypertension Dyslipidemia Surgical History Hx of colonoscopy Family History Father No problems noted. Mother No problems noted. Brother Hypertension Other Substance abuse Social History Housing: Condominium Alcohol intake: current Patient Tobacco Use Status: Former Tobacco user Quit Date: 34 years ago Tobacco use type: Cigarette e-Cigarette/Vaping Use: Never Used Current occupational status: retired Cognitive needs: No Hearing needs: No Vision needs: Yes Review of Systems Const All systems reviewed & are unremarkable except as noted in HPI and below Physical Exam Vital Signs: Last Vital Signs Temp 97.7 F 06/22/23 13:26 Pulse 70 06/22/23 13:26 BP 140/90 H 06/22/23 13:26 Pulse Ox 95 06/22/23 13:26 Oxygen Delivery Method Room Air 06/22/23 13:26 BMI result Body Mass Index 26.5 Vital signs stable Appearance: Alert.? Oriented X3.? No acute distress.? Head: Normocephalic, atraumatic, no step-offs or deformities. Nasal congesiton noted. Eyes: Pupils equal, round and reactive to light.? Neck: Normal inspection.? Neck supple.? CVS: Normal heart rate and rhythm.? Pulses normal.? Respiratory: No respiratory distress.? Breath sounds normal.? Abdomen: Soft and nontender.? Skin: Skin warm and dry.? Normal skin color.? Normal skin turgor.? Extremities: No lower extremity edema.? No calf ttp. 5/5 strength to bilateral upper and lower extremities Neuro: Oriented X 3.? No motor deficit.? No sensory deficit. CN 2-12 intact Assessment & Plan Assessment & Plan (1) Sinusitis: Code(s): J32.9 - Chronic sinusitis, unspecified Plan Take your medications as prescribed. If you were prescribed antibiotics today, it is important that you take your medication to their entirety, do not skip any doses, do not finish them early. Follow-up with your primary care provider this week. Return to the emergency department with new or worsening symptoms. Such as fevers, chills, chest pain, shortness of breath, nausea, vomiting, dizziness, headache, vision changes, lethargy In case of emergency call 911 Medications: New prednisone 40 mg (2 x 20 mg) PO DAILY 5 days 10 tabs 0RF albuterol sulfate 90 mcg/actuation 2 puffs inhalation Q6H PRN 6.7 grams 0RF shortness of breath or wheezing doxycycline hyclate 100 mg PO BID 14 caps 0RF 7 days benzonatate 100 mg PO BID PRN 14 caps 0RF cough Coding Level of Care Code Est Pt Level 3 (22938) Diagnoses Sinusitis J32.9
== END 2023-06-22 14:18 | disposition home or self-care (01) ==
PROVIDERS: PCP Internal Medicine; Visit Provider Physician Assistant
DX: J32.9 Chronic sinusitis, unspecified (principal)
CPT/HCPCS: 99213

== ENCOUNTER 2023-08-13 09:04 | Outpatient (AMB) | payer MEDICARE, SELFPAY ==
[2023-08-13 09:13] VITALS: BP 120/72; PULSE 54; BMI 25.8
--- NOTE | 2023-08-13 09:13 | A.OFFVIS_ITS ---
Intake Vital Signs 08/13/23 09:13 Height 4 ft 11 in Weight 127 lb 13.89 oz BMI 25.8 BP 120/72 Blood Pressure Location Lt brachial Position Sitting Pulse 54 Intake Visit Reasons: 1 yr f/up Intake Note: pt its here for 1 yr/ pt states that shes is doing fine. 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 Accompanied by: Self / Same As Patient Allergies metronidazole [From FLAGYL] Adverse Reaction (Mild, Verified 06/22/23 13:29) ANOREXIA From Avelox Adverse Reaction (Mild, Uncoded 03/05/23 13:34) NASUEA,CONFUSION Medication List - Last Reconciled 08/13/23 by Stephen Lin MD albuterol sulfate 90 mcg/actuation 2 puffs inhalation Q6H PRN antiarthritic combination no.2 (glucosamine-chondroitin) mg PO atorvastatin 40 mg PO DAILY calcium carbonate-vitamin D3 600 mg-12.5 mcg (500 unit) (Calcium 600 with Vitamin D3) caps PO carvedilol 3.125 mg PO BID coenzyme A21-rioxyei E 100-100 mg-unit caps PO .QOD fexofenadine 180 mg PO DAILY PRN fluticasone propionate 50 mcg/actuation (Flonase Allergy Relief) 1 spray intranasal DAILY ibuprofen 600 mg PO Q8H PRN 10 days lutein 20 mg PO DAILY meclizine 25 mg PO Q8H PRN omega 1-faj-egq-fish-turmeric 417 mg-120 mg- 276 mg-600 mg 1 cap PO DAILY omeprazole 20 mg PO ONCE PNV,calcium 48-nybs-hzjlp acid 27 mg iron- 1 mg ( Vitamins Plus Low Iron) 1 tab PO DAILY propylene glycol 0.6% (Systane Balance) 1 drp ophthalmic (eye) DAILY PRN wheat dextrin (Benefiber Clear Sugar Free(dextrin)) 1 packet PO DAILY HPI HPI Comments History of Present Illness Details 73-year-old female who is here to [facility] cardiovascular care. She has background history of palpitation and hypertension. In January 2020 she had a long episode of palpitations. She saw Dr. Kimble who was her primary care physician at that time and was referred for echocardiography and Holter monitoring. Holter monitor did not show any significant arrhythmia. Echocardiography was also unremarkable. In November 2020 she was in the emergency department with chest pain. She said she was overdoing house chores and exercising too much. She did a lot of weeding in the yard and then developed right sided severe CP at nighttime. She said it lasted for many hours and she went to the emergency department. She was observed there and discharged home underwent stress testing later which did not show any significant issues. She said the chest discomfort stayed there for few days and then improved. Since then she has not had any further pains. She returns for follow up today. She has no symptoms. She had some palpitations after she started drinking more decaf coffee. She since then has cut back. She gets SOB after climbing 3 flights of stairs at [employer] but does not stop after that. She is doing yoga, treadmill and stepper without symptoms. Overall she is quite stable. 08/13/23: She returns for follow-up. Lady youssef continues to get some palpitations off and on. She is saying this happens after drinking decaf coffee. They do not last long and sometimes she gets shortness of breath. Her blood pressure is well controlled. [facility] Medical History Congestion of nasal sinus Post-nasal drainage Macular degeneration of left eye Chest pain Irritable bowel syndrome with constipation Skin lesion of back Diverticulitis Salivary duct obstruction GERD with stricture Esophagus, Sharma's Intermittent palpitations Osteopenia of hip PUD (peptic ulcer disease) Cemento-osseous dysplasia Anxiety Essential hypertension Dyslipidemia Surgical History Hx of colonoscopy Family History Father No problems noted. Mother No problems noted. Brother Hypertension Other Substance abuse Social History Housing: Condominium Alcohol intake: current Patient Tobacco Use Status: Former Tobacco user Quit Date: 34 years ago Tobacco use type: Cigarette e-Cigarette/Vaping Use: Never Used Current occupational status: retired Cognitive needs: No Hearing needs: No Vision needs: Yes Review of Systems Const Denies chills, Denies fatigue, Denies fever(s), Denies frequent falls, Denies weakness, Denies weight gain and Denies weight loss ENT Denies dizziness Card Denies chest pain, Denies leg edema, Denies lightheadedness, Denies palpitations, Denies dyspnea and Denies dyspnea on exertion Resp Denies cough, Denies dyspnea and Denies dyspnea on exertion GI Denies hematochezia Musc Denies abnormal gait, Denies muscle weakness, Denies numbness, Denies radiating pain into limb and Denies tingling Neuro Denies abnormal gait, Denies dizziness, Denies frequent falls, Denies numbness, Denies tingling and Denies weakness Endo Denies fatigue and Denies palpitations Physical Exam Vital Signs: Last Vital Signs Pulse 54 08/13/23 09:13 BP 120/72 08/13/23 09:13 BMI result Body Mass Index 25.8 GENERAL APPEARANCE: in no acute distress, well developed, well nourished. NECK/THYROID: no carotid bruit, no jugular venous distention. SKIN: no suspicious lesions, warm and dry. HEART: no murmurs, regular rate and rhythm, S1, S2 normal. Bradycardic LUNGS: clear to auscultation bilaterally. ABDOMEN: normal, bowel sounds present, soft, nontender, nondistended. EXTREMITIES: no clubbing, cyanosis, or edema. PERIPHERAL PULSES: equal. NEUROLOGIC: nonfocal, alert and oriented. Office Procedures EKG Details: Sinus bradycardia 54 beats per minute, otherwise normal ECG, QTC 369 milliseconds. [id number], Complete Assessment & Plan Assessment & Plan (1) Intermittent palpitations: Code(s): R00.2 - Palpitations (2) Essential hypertension: Code(s): I10 - Essential (primary) hypertension Plan Pleasant 73-year-old female who is here for follow-up. She has hypertension and is currently taking carvedilol 3.125 mg twice a day. Blood pressure is well controlled currently. No arrhythmia on the EKG but she continues to get palpitations off and on. I have advised her to do a 2 week Holter monitor. She will see us back in 1 year. Thank you for allowing me to participate in the care of your patient. Please feel free to contact me if you have any questions. Orders: Orders ECG 14 day holter monitor Today R00.2 - Palpitations Coding Level of Care Code Est Pt Level 3 (75722) Diagnoses Intermittent palpitations R00.2 Essential hypertension I10 CPT Codes EKG - CPT: 55697-[id number], Complete ([id number])
== END 2023-08-13 09:37 | disposition home or self-care (01) ==
PROVIDERS: PCP Internal Medicine; Visit Provider Internal Medicine Cardiovascular Disease
DX: R00.2 Palpitations (principal); I10 Essential (primary) hypertension
CPT/HCPCS: 93010; 99213

== ENCOUNTER → 2023-08-13 09:04 | Outpatient (BNVA) | payer MEDICARE, SELFPAY | PROVIDERS: PCP Internal Medicine; Visit Provider Internal Medicine Cardiovascular Disease | DX: R00.2 Palpitations (principal); I10 Essential (primary) hypertension | CPT/HCPCS: 93005; 99212 ==

== ENCOUNTER → 2023-08-23 08:53 | Outpatient (REF) | payer MEDICARE, SELFPAY ==
--- NOTE | 2023-08-23 08:56 | HM_ITS ---
* Total monitoring time 14 days. * Underlying rhythm is sinus with an average rate of 67/Min. * Occasional supraventricular ectopy with a burden of 0.5%. Very brief runs. * Rare ventricular ectopy. Couplets noted but no significant runs. * No significant pauses or AV blocks. * Patient markers used in association with sinus rhythm, supraventricular ectopy. * Patient diary report symptoms of shortness of breath and flutter. Correlates with sinus rhythm, supraventricular and ventricular ectopy. MTDD
== END ==
LOC: HO.CARD 08:53
PROVIDERS: PCP Internal Medicine; Visit Provider Internal Medicine Cardiovascular Disease
DX: R00.2 Palpitations (principal)
CPT/HCPCS: 93246

== ENCOUNTER → 2023-08-23 08:56 | Outpatient (BNV) | payer MEDICARE, SELFPAY | PROVIDERS: PCP Internal Medicine; Visit Provider Internal Medicine | DX: R00.1 Bradycardia, unspecified (principal) | CPT/HCPCS: 93248 ==

== ENCOUNTER 2023-09-01 09:18 | Outpatient (REF) | payer MEDICARE, SELFPAY ==
[2023-09-01 11:44] LABS: Alanine Aminotransferase 21 U/L (0-31); Anion Gap 12 (12-20); Aspartate Amino Transferase 29 U/L (5-31); Blood Urea Nitrogen 16 mg/dL (9-16); Calcium 9.5 mg/dL (8.4-10.2); Carbon Dioxide 29 mmol/L (22-29); Chloride 105 mmol/L (96-108); Cholesterol 210 mg/dL (<200); Estimated Glomerular Filt Rate > 60; Glucose Fasting 87 mg/dL (60-99); HDL Cholesterol 81 mg/dL (>40); LDL Cholesterol Calculated 119 mg/dL (<100); Potassium 4.8 mmol/L (3.3-5.1); Sodium 141 mmol/L (135-145); Triglycerides 52 mg/dL (<150)
[2023-09-01 12:00] LABS: Vitamin D 25-OH Total 69.5 ng/mL (>30)
== END 2023-09-01 09:19 | disposition home or self-care (01) ==
LOC: HO.HMGCLDS 09:18
PROVIDERS: PCP Internal Medicine; Visit Provider Internal Medicine
DX: M85.859 Other specified disorders of bone density and structure, unspecified thigh (principal); I10 Essential (primary) hypertension; E78.5 Hyperlipidemia, unspecified
CPT/HCPCS: 36415; 80048; 80061; 82306; 84450; 84460

== ENCOUNTER 2023-09-06 08:29 | Outpatient (AMB) | payer MEDICARE, SELFPAY ==
--- NOTE | 2023-09-06 08:53 | A.OFFPC_ITS ---
<Statement entered by Carolina Fairbanks MD - 10/01/24 15:30> This note has been administratively?closed. Vital Signs 09/06/23 08:57 Height 4 ft 11 in Weight 125 lb BMI 25.2 BP 102/54 L Blood Pressure Location Lt brachial Position Sitting Pulse 68 Pulse Source Pulse Oximeter Pulse Oximetry (%) 98 Oxygen Delivery Method Room Air Intake Visit Reasons: PE Intake Note: Pt is here today for her PE Mammogram 02/07/23, colonoscopy 05/07/19 Allergies metronidazole [From FLAGYL] Adverse Reaction (Mild, Verified 09/06/23 09:15) ANOREXIA From Avelox Adverse Reaction (Mild, Uncoded 09/06/23 09:15) NASUEA,CONFUSION Medication List - Last Reconciled 09/06/23 by Carolina Fairbanks MD albuterol sulfate 90 mcg/actuation 2 puffs inhalation Q6H PRN antiarthritic combination no.2 (glucosamine-chondroitin) mg PO atorvastatin 40 mg PO DAILY calcium carbonate-vitamin D3 600 mg-12.5 mcg (500 unit) (Calcium 600 with Vitamin D3) caps PO carvedilol 3.125 mg PO BID coenzyme A29-eulcozt E 100-100 mg-unit caps PO .QOD fexofenadine 180 mg PO DAILY PRN fluticasone propionate 50 mcg/actuation (Flonase Allergy Relief) 1 spray intranasal DAILY ibuprofen 600 mg PO Q8H PRN 10 days lutein 20 mg PO DAILY meclizine 25 mg PO Q8H PRN omega 2-xxa-ecx-fish-turmeric 417 mg-120 mg- 276 mg-600 mg 1 cap PO DAILY omeprazole 20 mg PO ONCE PNV,calcium 63-tphw-jvkdg acid 27 mg iron- 1 mg ( Vitamins Plus Low Iron) 1 tab PO DAILY propylene glycol 0.6% (Systane Balance) 1 drp ophthalmic (eye) DAILY PRN wheat dextrin (Benefiber Clear Sugar Free(dextrin)) 1 packet PO DAILY Tobacco use date assessed: 09/06/23 Fall risk assessment: No Falls in past year Last assessed Fall Risk: 09/06/23 Dental Screening Dental Screen Date: 09/06/23 Did you have a dental visit in the last 12 months?: Yes Did you have a dental problem in the last 6 months where you did not have access to dental care?: Yes Was dental information given to patient?: Patient has dentist HPI PE HPI Details 73-year-old lady here today for physical exam. She has hyperlipidemia, hypertension GERD with Sharma's esophagus IBS, macular degeneration of left eye, osteopenia of left hip and anxiety disorder, stable and controlled on present treatment. Mammogram 02/07/23, colonoscopy 05/07/19 [facility] Medical History (Updated 09/06/23 @ 09:26 by Carolina Fairbanks MD) Irritable larynx syndrome Osteoporosis Congestion of nasal sinus Post-nasal drainage Macular degeneration of left eye Chest pain Irritable bowel syndrome with constipation Skin lesion of back Diverticulitis Salivary duct obstruction GERD with stricture Esophagus, Sharma's Intermittent palpitations Osteopenia of hip PUD (peptic ulcer disease) Cemento-osseous dysplasia Anxiety Essential hypertension Dyslipidemia Surgical History Hx of colonoscopy Family History Father No problems noted. Mother No problems noted. Brother Hypertension Other Substance abuse Social History Housing: Condominium Alcohol intake: current Patient Tobacco Use Status: Former Tobacco user Quit Date: 34 years ago Tobacco use type: Cigarette e-Cigarette/Vaping Use: Never Used Current occupational status: retired Cognitive needs: No Hearing needs: No Vision needs: Yes Questionnaire PHQ-9 Over the last 2 weeks, how often have you been bothered by any of the following problems? 1. Little interest or pleasure in doing things: not at all 2. Feeling down, depressed, or hopeless: not at all 3. Trouble falling or staying asleep, or sleeping too much: not at all 4. Feeling tired or having little energy: not at all 5. Poor appetite or overeating: not at all 6. Feeling bad about yourself - or that you are a failure or have let yourself or your family down: not at all 7. Trouble concentrating on things, such as reading the newspaper or watching television: not at all 8. Moving or speaking so slowly that other people could have noticed. Or the opposite - being so fidgety or restless that you have been moving around a lot more than usual: not at all 9. Thoughts that you would be better off or of hurting yourself in some way: not at all Total score: 0 Depression Screening Interpretation: Negative Depression Screening Done: Yes 72407 - PHQ-9 Billing: Yes Source: Developed by Drs. Servando Baca, Kylee Hicks, Bryan Choe and colleagues, with an educational tiesha from [employer]. Thrive Questionnaire Date Thrive assessed: 09/06/23 I am a: Patient What is your living situation today?: I have a steady place to live Within the past 12 months, did the food you bought not last and you didn't have the money to get more?: Never true Within the past 12 months, did you worry whether your food would run out before you got money to buy more?: Never true Do you have trouble paying for medicines?: No Do you have trouble getting transportation to medical appointments?: No Do you have trouble paying your heating and electricity bill?: No Do you have trouble taking care of your child, family member or friend?: No Do you have trouble with day-to-day activities such as bathing, preparing meals, shopping, managing finances, etc.?: No Are you currently unemployed and looking for a job?: No Are you interested in more education?: No THRIVE Score: 0 AUDIT C Alcohol Use Questionnaire (AUDIT-C) 1. How often do you have a drink containing alcohol?: Monthly or less 2. How many drinks containing alcohol do you have on a typical day when you are drinking?: 1 or 2 3. How often do you have six or more drinks on one occasion?: Never Total Score: 1 RUBEN-7 AMB Questionnaire RUBEN-7 Date RUBEN - 7 assessed: 09/06/23 Feeling nervous, anxious, or on edge: 0 = Not at all Not being able to stop or control worryin = Not at all Worrying too much about different things: 0 = Not at all Trouble relaxin = Not at all Being so restless that it is hard to sit still: 0 = Not at all Becoming easily annoyed or irritable: 0 = Not at all Feeling afraid as if something awful might happen: 0 = Not at all Total RUBEN-7 score (0-4 normal; 5-9 mild; 10-14 moderate; 15-21 severe): 0 Source: Developed by Drs. Servando Baca, Kylee Hicks, Bryan Choe and colleagues, with an educational tiesha from [employer]. Physical exam (Primary Care) Vital Signs: Last Vital Signs Pulse 68 09/06/23 08:57 BP 102/54 L 09/06/23 08:57 Pulse Ox 98 09/06/23 08:57 Oxygen Delivery Method Room Air 09/06/23 08:57 BMI result Body Mass Index 25.2 Tobacco/Smoking Status: Tobacco use Status Tobacco use date assessed 09/06/23 09/06/23 08:56 Patient Tobacco Use Status Former Tobacco user 09/06/23 08:54 Tobacco use type Cigarette 09/06/23 08:54 e-Cigarette/Vaping Use Never Used 09/06/23 08:54 PHQ-9: PHQ-9 Score PHQ-9: Total score 0 09/06/23 09:16 Depression Screening Interpretation: Negative Thrive Assessment: Date of Thrive Assessment Date Thrive assessed 09/06/23 09/06/23 08:59 Assessment and Plan Assessment & Plan (1) Dyslipidemia: Code(s): E78.5 - Hyperlipidemia, unspecified (2) Essential hypertension: Code(s): I10 - Essential (primary) hypertension (3) Intermittent palpitations: Code(s): R00.2 - Palpitations (4) Esophagus, Sharma's: Code(s): K22.70 - Sharma's esophagus without dysplasia (5) Macular degeneration of left eye: Comment: sees Dr Escobar Code(s): H35.30 - Unspecified macular degeneration (6) Osteoporosis: Comment: Last bone density scan showed unchanged osteoporosis in left femoral neck, [address] Penaloza Code(s): M81.0 - Age-related osteoporosis without current pathological fracture (7) Annual visit for general adult medical examination with abnormal findings: Code(s): Z00.01 - Encounter for general adult medical examination with abnormal findings Orders: Orders Alanine Aminotransferase 6 Months E78.5 - Hyperlipidemia, unspecified, I10 - Essential (primary) hypertension, K22.70 - Sharma's esophagus without dysplasia, M81.0 - Age-related osteoporosis without current pathological fracture, R00.2 - Palpitations, Z00.01 - Encounter for general adult medical examination with abnormal findings Basic Metabolic Panel Fasting 6 Months E78.5 - Hyperlipidemia, unspecified, I10 - Essential (primary) hypertension, K22.70 - Sharma's esophagus without dysplasia, M81.0 - Age-related osteoporosis without current pathological fracture, R00.2 - Palpitations, Z00.01 - Encounter for general adult medical examination with abnormal findings Lipid Panel 6 Months E78.5 - Hyperlipidemia, unspecified, I10 - Essential (primary) hypertension, K22.70 - Sharma's esophagus without dysplasia, M81.0 - Age-related osteoporosis without current pathological fracture, R00.2 - Palpitations, Z00.01 - Encounter for general adult medical examination with abnormal findings Aspartate Amino Transferase 6 Months E78.5 - Hyperlipidemia, unspecified, I10 - Essential (primary) hypertension, K22.70 - Sharma's esophagus without dysplasia, M81.0 - Age-related osteoporosis without current pathological fracture, R00.2 - Palpitations, Z00.01 - Encounter for general adult medical examination with abnormal findings Medications: Refilled atorvastatin 40 mg PO DAILY 90 tabs 1RF Coding Level of Care Code Est Pt Prev Care >65y(51409) Diagnoses Dyslipidemia E78.5 Essential hypertension I10 Intermittent palpitations R00.2 Esophagus, Sharma's K22.70 Macular degeneration of left eye H35.30 Osteoporosis M81.0 Annual visit for general adult medical examination with abnormal findings Z00.01
[2023-09-06 08:57] VITALS: BP 102/54; PULSE 68; O2SAT 98; BMI 25.2
== END 2023-09-06 09:37 | disposition home or self-care (01) ==
PROVIDERS: PCP Internal Medicine; Visit Provider Internal Medicine
DX: E78.5 Hyperlipidemia, unspecified (principal); I10 Essential (primary) hypertension; R00.2 Palpitations; K22.70 Barrett's esophagus without dysplasia; H35.30 Unspecified macular degeneration; M81.0 Age-related osteoporosis without current pathological fracture; Z00.01 Encounter for general adult medical examination with abnormal findings
CPT/HCPCS: 99499

== ENCOUNTER 2023-09-27 13:26 | Outpatient (AMB) | payer MEDICARE, SELFPAY ==
--- NOTE | 2023-09-27 13:35 | AM.OFFWIN_ITS ---
Intake Vital Signs 09/27/23 13:36 Height 4 ft 11 in Weight 127 lb BMI 25.6 BP 140/60 H Blood Pressure Location Lt brachial Position Sitting Pulse 59 Pulse Source Pulse Oximeter Temp 97.7 F Temp Source Temporal Artery Scan Pulse Oximetry (%) 96 Oxygen Delivery Method Room Air Intake Visit Reasons: EP uti? Intake Note: pt is here today for 2 weeks ago Patient Tobacco Use Status: Former Tobacco user Quit Date: 34 years ago Allergies metronidazole [From FLAGYL] Adverse Reaction (Mild, Verified 09/27/23 13:39) ANOREXIA From Avelox Adverse Reaction (Mild, Uncoded 09/06/23 09:15) NASUEA,CONFUSION Do you need a note to return to daycare/school/sports/work: No HPI HPI Comments History of Present Illness Details 73-year-old female presents with mild ir ritation with urination. She denies urgency or frequency states she came in today concerned she might have an early UTI. Otherwise no other complaints denies vaginal discharge [facility] Medical History (Updated 09/27/23 @ 13:50 by EKTA Garza) Irritable larynx syndrome Osteoporosis Congestion of nasal sinus Post-nasal drainage Macular degeneration of left eye Chest pain Irritable bowel syndrome with constipation Skin lesion of back Diverticulitis Salivary duct obstruction GERD with stricture Esophagus, Sharma's Intermittent palpitations Osteopenia of hip PUD (peptic ulcer disease) Cemento-osseous dysplasia Anxiety Essential hypertension Dyslipidemia Surgical History Hx of colonoscopy Family History Father No problems noted. Mother No problems noted. Brother Hypertension Other Substance abuse Social History Housing: Condominium Alcohol intake: current Patient Tobacco Use Status: Former Tobacco user Quit Date: 34 years ago Tobacco use type: Cigarette e-Cigarette/Vaping Use: Never Used Current occupational status: retired Cognitive needs: No Hearing needs: No Vision needs: Yes Review of Systems Const All systems reviewed & are unremarkable except as noted in HPI and below Physical Exam Vital Signs: Last Vital Signs Temp 97.7 F 09/27/23 13:36 Pulse 59 09/27/23 13:36 BP 140/60 H 09/27/23 13:36 Pulse Ox 96 09/27/23 13:36 Oxygen Delivery Method Room Air 09/27/23 13:36 BMI result Body Mass Index 25.6 Const General: healthy appearing and no acute distress Results AMB Urinalysis, Automated UA Leukoctes 0 Ana/uL Last Edit by Yarelis Blanca MA on 09/27/23 13:48 UA Nitrite Negative Last Edit by Yarelis Blanca MA on 09/27/23 13:48 UA Urobilinogen 0.2 mg/dL Last Edit by Yarelis Blanca MA on 09/27/23 13:48 UA Protein 0 mg/dL Last Edit by Yarelis Blanca MA on 09/27/23 13:48 UA pH 5.5 Last Edit by Yarelis Blanca MA on 09/27/23 13:48 UA Blood 0 Jay/uL Last Edit by Yarelis Blanca MA on 09/27/23 13:48 UA Specific [place] 1.010 Last Edit by Yarelis Blanca MA on 09/27/23 13:48 UA Ketone Positive Last Edit by Yarelis Blanca MA on 09/27/23 13:48 UA Bilirubin 0 mg/dL Last Edit by Yarelis Blanca MA on 09/27/23 13:48 UA Glucose 0 mg/dL Last Edit by Yarelis Blanca MA on 09/27/23 13:48 Results Reviewed Results Reviewed: Reviewed the urinalysis done today was within normal limits. That was discussed with the patient. She states she is going to continue hydration at home and return if the symptoms increase. Assessment & Plan Assessment & Plan (1) Dysuria: Code(s): R30.0 - Dysuria Plan: The patient will continue hydration and returned to the clinic if symptoms increase Plan See plan Coding Level of Care Code Est Pt Level 3 (07621) Diagnoses Dysuria R30.0
[2023-09-27 13:36] VITALS: BP 140/60; PULSE 59; TEMP 36.5; O2SAT 96; BMI 25.6
== END 2023-09-27 14:08 | disposition home or self-care (01) ==
PROVIDERS: PCP Internal Medicine; Visit Provider Physician Assistant Medical
DX: R30.0 Dysuria (principal)
CPT/HCPCS: 99213

== ENCOUNTER 2024-03-24 07:39 | Outpatient (REF) | payer MEDICARE, SELFPAY ==
[2024-03-24 10:23] LABS: Alanine Aminotransferase 24 U/L (0-31); Anion Gap 7 (12-20); Aspartate Amino Transferase 32 U/L (5-31); Blood Urea Nitrogen 11 mg/dL (9-16); Calcium 9.3 mg/dL (8.4-10.2); Carbon Dioxide 31 mmol/L (22-29); Chloride 107 mmol/L (96-108); Cholesterol 195 mg/dL (<200); Estimated Glomerular Filt Rate > 60; Glucose Fasting 91 mg/dL (60-99); HDL Cholesterol 74 mg/dL (>40); LDL Cholesterol Calculated 108 mg/dL (<100); Potassium 4.4 mmol/L (3.3-5.1); Sodium 141 mmol/L (135-145); Triglycerides 68 mg/dL (<150)
== END 2024-03-24 07:40 | disposition home or self-care (01) ==
LOC: HO.HMGCLDS 07:39
PROVIDERS: PCP Internal Medicine; Visit Provider Internal Medicine
DX: Z00.01 Encounter for general adult medical examination with abnormal findings (principal); E78.5 Hyperlipidemia, unspecified; M81.0 Age-related osteoporosis without current pathological fracture; K22.70 Barrett's esophagus without dysplasia; R00.2 Palpitations
CPT/HCPCS: 36415; 80048; 80061; 84450; 84460

== ENCOUNTER 2024-03-25 11:25 | Outpatient (AMB) | payer MEDICARE, SELFPAY ==
[2024-03-25 11:42] VITALS: BP 128/80; PULSE 70; O2SAT 98; BMI 24.3
--- NOTE | 2024-03-25 11:42 | MHC.PC.OV ---
Vital Signs 03/25/24 11:42 Height 4 ft 11 in Weight 120 lb 2 oz BMI 24.3 BP 128/80 Blood Pressure Location Lt brachial Position Sitting Pulse 70 Pulse Source Pulse Oximeter Pulse Oximetry (%) 98 Oxygen Delivery Method Room Air Intake Visit Reasons: 6M F/U UTN, lipids, labs Intake Note: Pt is here today for 6 month follow up on lipids. Allergies metronidazole [From FLAGYL] Adverse Reaction (Mild, Verified 03/25/24 11:56) ANOREXIA From Avelox Adverse Reaction (Mild, Uncoded 03/25/24 11:56) NASUEA,CONFUSION Medication List - Last Reconciled 03/25/24 by Carolina Fairbanks MD albuterol sulfate 90 mcg/actuation 2 puffs inhalation Q6H PRN antiarthritic combination no.2 (glucosamine-chondroitin) mg PO atorvastatin 40 mg PO DAILY calcium carbonate-vitamin D3 600 mg-12.5 mcg (500 unit) (Calcium 600 with Vitamin D3) caps PO carvedilol 3.125 mg PO BID coenzyme H19-vmobqnp E 100-100 mg-unit caps PO .QOD fexofenadine 180 mg PO DAILY PRN fluticasone propionate 50 mcg/actuation (Flonase Allergy Relief) 1 spray intranasal DAILY ibuprofen 600 mg PO Q8H PRN 10 days lutein 20 mg PO DAILY meclizine 25 mg PO Q8H PRN omega 9-fnp-qgy-fish-turmeric 417 mg-120 mg- 276 mg-600 mg 1 cap PO DAILY omeprazole 20 mg PO ONCE PNV,calcium 73-yyrz-lmqlb acid 27 mg iron- 1 mg ( Vitamins Plus Low Iron) 1 tab PO DAILY propylene glycol 0.6% (Systane Balance) 1 drp ophthalmic (eye) DAILY PRN wheat dextrin (Benefiber Clear Sugar Free(dextrin)) 1 packet PO DAILY Tobacco use date assessed: 03/25/24 Fall risk assessment: No Falls in past year Last assessed Fall Risk: 03/25/24 Dental Screening Dental Screen Date: 03/25/24 Did you have a dental visit in the last 12 months?: Yes Did you have a dental problem in the last 6 months where you did not have access to dental care?: No Was dental information given to patient?: Patient has dentist HPI 6M F/U UTN, lipids, labs HPI Details 73-year-old lady here today for follow-up on her hypertension, and lipids. Latest blood pressure within normal limits, currently on carvedilol 3.125 mg taken 1 twice a day and is on atorvastatin and fish oil supplements. She is also here today complaining of nasal congestion, frontal headaches, and postnasal drainage, which has been present now for more than 10 days. Initially thought it was getting better with zfhb-lii-gatsucz cough and cold medication. Denies any accompanying fever. [facility] Medical History (Updated 03/25/24 @ 12:13 by Carolina Fairbanks MD) Irritable larynx syndrome Osteoporosis Congestion of nasal sinus Post-nasal drainage Macular degeneration of left eye Chest pain Irritable bowel syndrome with constipation Skin lesion of back Diverticulitis Salivary duct obstruction GERD with stricture Esophagus, Sharma's Intermittent palpitations Osteopenia of hip PUD (peptic ulcer disease) Cemento-osseous dysplasia Anxiety Essential hypertension Dyslipidemia Surgical History Hx of colonoscopy Family History Father No problems noted. Mother No problems noted. Brother Hypertension Other Substance abuse Social History Housing: Condominium Alcohol intake: current Patient Tobacco Use Status: Former Tobacco user Tobacco use type: Cigarette e-Cigarette/Vaping Use: Never Used service: No Current occupational status: retired Cognitive needs: No Hearing needs: No Vision needs: Yes Questionnaire PHQ-9 Over the last 2 weeks, how often have you been bothered by any of the following problems? 1. Little interest or pleasure in doing things: not at all 2. Feeling down, depressed, or hopeless: not at all 3. Trouble falling or staying asleep, or sleeping too much: not at all 4. Feeling tired or having little energy: not at all 5. Poor appetite or overeating: not at all 6. Feeling bad about yourself - or that you are a failure or have let yourself or your family down: not at all 7. Trouble concentrating on things, such as reading the newspaper or watching television: not at all 8. Moving or speaking so slowly that other people could have noticed. Or the opposite - being so fidgety or restless that you have been moving around a lot more than usual: not at all 9. Thoughts that you would be better off or of hurting yourself in some way: not at all Total score: 0 Depression Screening Interpretation: Negative Depression Screening Done: Yes 14815 - PHQ-9 Billing: Yes Source: Developed by Drs. Servando Baca, Kylee Hicks, Bryan Choe and colleagues, with an educational tiesha from [employer]. Thrive Questionnaire Date Thrive assessed: 03/25/24 I am a: Patient What is your living situation today?: I have a steady place to live Within the past 12 months, did the food you bought not last and you didn't have the money to get more?: Never true Within the past 12 months, did you worry whether your food would run out before you got money to buy more?: Never true Do you have trouble paying for medicines?: No Do you have trouble getting transportation to medical appointments?: No Do you have trouble paying your heating and electricity bill?: No Do you have trouble taking care of your child, family member or friend?: No Do you have trouble with day-to-day activities such as bathing, preparing meals, shopping, managing finances, etc.?: No Are you currently unemployed and looking for a job?: No Are you interested in more education?: No Please select the resources that you would like help with: None Currently or been in a relationship where the following occur: No concerns reported THRIVE Score: 0 AUDIT C Alcohol Use Questionnaire (AUDIT-C) 1. How often do you have a drink containing alcohol?: Monthly or less 2. How many drinks containing alcohol do you have on a typical day when you are drinking?: 1 or 2 3. How often do you have six or more drinks on one occasion?: Never Total Score: 1 Score Reviewed/Action Taken: Yes RUBEN-7 AMB Questionnaire RUBEN-7 Date RUBEN - 7 assessed: 03/25/24 Feeling nervous, anxious, or on edge: 0 = Not at all Not being able to stop or control worryin = Not at all Worrying too much about different things: 0 = Not at all Trouble relaxin = Several days Being so restless that it is hard to sit still: 1 = Several days Becoming easily annoyed or irritable: 0 = Not at all Feeling afraid as if something awful might happen: 0 = Not at all Total RUBEN-7 score (0-4 normal; 5-9 mild; 10-14 moderate; 15-21 severe): 2 Source: Developed by Drs. Servando Baca, Kylee Hicks, Bryan Choe and colleagues, with an educational tiesha from [employer]. RUBEN-7 Assessment Billing RUBEN-7 Assessment Tool: RUBEN-7 Assessment 21598 Review of Systems Const All systems reviewed & are unremarkable except as noted in HPI and below Physical exam (Primary Care) Vital Signs: Last Vital Signs Pulse 70 03/25/24 11:42 BP 128/80 03/25/24 11:42 Pulse Ox 98 03/25/24 11:42 Oxygen Delivery Method Room Air 03/25/24 11:42 BMI result Body Mass Index 24.3 Tobacco/Smoking Status: Tobacco use Status Tobacco use date assessed 03/25/24 03/25/24 11:45 Patient Tobacco Use Status Former Tobacco user 03/25/24 11:45 Tobacco use type Cigarette 03/25/24 11:45 e-Cigarette/Vaping Use Never Used 03/25/24 11:45 PHQ-9: PHQ-9 Score PHQ-9: Total score 0 03/25/24 11:58 Depression Screening Interpretation: Negative Thrive Assessment: Date of Thrive Assessment Date Thrive assessed 03/25/24 03/25/24 11:45 Currently or been in a relationship where the following occur: No concerns reported Const General: comfortable, no acute distress, alert and Physically active Nutritional Appearance: average body habitus Orientation/consciousness: patient oriented x3 HENTX General nose exam: Normal external nose present and Abnormal mucous membranes and turbinates present (Erythematous nasal mucosa) Face and sinus: Yes face symmetric and No sinus tenderness Mouth: Normal oral and palatal mucosa present, oropharynx normal and moist mucous membranes Neck Neck: Yes full ROM, Yes no lymphadenopathy and Yes supple Resp Auscultation: clear to auscultation bilaterally Cardio Other: S1-S2 present regular rate and rhythm GI Palpation (GI): Soft to palpation, nontender, no guarding and no masses Auscultation: normal bowel sounds Neuro General: patient oriented x3 Extrem General: Yes full ROM, Yes no joint enlargement, Yes no clubbing, cyanosis or edema and Yes normal gait Results Reviewed Results Reviewed: Name: Zamzam Alfaro Age/Sex: 73/F : 1950 Unit#: [id number] Attend Dr: Carolina Fairbanks MD Re03/24/24 Status: DEP REF Location: [facility] Disch: SPEC : [id number] TIFFANIE: 03/24/24 STATUS: COMP REQ : [id number] RECD: 03/24/[address]: Carolina Fairbanks MD COMP: 03/24/24 ENTERED: 03/24/24 [facility] DR: ORDERED: Met Prof Fast, AST, ALT, Lipid Panel Test Result Flag Reference Sodium 141 135-145 mmol/L Potassium 4.4 3.3-5.1 mmol/L CL 107 96-108 mmol/L CO2 31 H 22-29 mmol/L Gap 7 L 12-20 BUN 11 9-16 mg/dL Creat 0.87 0.5-1.4 mg/dL EGFR > 60 NOTE: For -[place] individuals, multiply the result by 1.210. Chronic Kidney Disease: Estimated GFR < 60 mL/min/1.73m2 Severe Kidney Disease: Estimated GFR < 15 mL/min/1.73m2 FBS 91 60-99 mg/dL CA 9.3 8.4-10.2 mg/dL AST (GOT) 32 H 5-31 U/L ALT (GPT) 24 0-31 U/L Triglyceride 68 <150 mg/dL Desirable Triglyceride: less than 150 mg/dL Borderline High Triglyceride 150-199 mg/dL High Triglyceride: 200-499 mg/dL Very High Triglyceride: greater than or equal to 5OO mg/dL Cholesterol 195 <200 mg/dL Desirable Cholesterol: less than 200 mg/dL Borderline High Cholesterol: 200-239 mg/dL High Cholesterol: greater than 239 mg/dL LDL Calculated 108 H <100 mg/dL Desirable LDL: less than 100 mg/dL Near Optimal/Above Optimal LDL: 110-129 mg/dL Borderline High LDL: 130-159 mg/dL High LDL: 160-189 mg/dL Very High LDL: greater than or equal to 190 mg/dL HDL 74 >40 mg/dL Desirable HDL: greater than 40 mg/dL Note: This HDL assay may give artificially low results in patients with liver disease. Coding Level of Care Code Est Pt Level 4 (27024) Complex EM visit Add On G2211 Diagnoses Acute respiratory infection J22 Dyslipidemia E78.5 Essential hypertension I10 Additional Codes RUBEN-7 Assessment Billing - RUBEN-7 Assessment Tool: RUBEN-7 Assessment 70414 ([id number]) Assessment & Plan Assessment & Plan (1) Acute respiratory infection: Code(s): J22 - Unspecified acute lower respiratory infection Plan: Will check for RSV, SARs and flu, likely started on azithromycin 5 day Dosepak to take as directed. Drink plenty of fluids (2) Dyslipidemia: Code(s): E78.5 - Hyperlipidemia, unspecified Category: Medical Plan: Reviewed recent fasting lipid profile with patient with levels with a normal limits . Continue atorvastatin 40 mg daily plus [place] 3 fatty acid supplements , in addition to adherence to low-cholesterol diet and regular exercise, at least 30 minutes 3 to 4 times a week. Advised patient to make healthy food choices, eat more fruits, vegetables, whole grains, wild caught fish and low-fat dairy. Limit amount of meat and fried or fatty food products, as well as processed foods and fast foods. Follow-up scheduled with repeat fasting lipid panel in 6 months. (3) Essential hypertension: Code(s): I10 - Essential (primary) hypertension Category: Medical Plan: Blood pressure stable and controlled. Continued on carvedilol 3.125 mg 1 tablet twice a day Orders: Orders SARS-CoV2/FLU/RSV 03/25/24 J22 - Unspecified acute lower respiratory infection Aspartate Amino Transferase 08/26/24 E78.5 - Hyperlipidemia, unspecified, I10 - Essential (primary) hypertension, M81.0 - Age-related osteoporosis without current pathological fracture Basic Metabolic Panel Fasting 08/26/24 E78.5 - Hyperlipidemia, unspecified, I10 - Essential (primary) hypertension, M81.0 - Age-related osteoporosis without current pathological fracture Vitamin D 25-OH Total 08/26/24 E78.5 - Hyperlipidemia, unspecified, I10 - Essential (primary) hypertension, M81.0 - Age-related osteoporosis without current pathological fracture Lipid Panel 08/26/24 E78.5 - Hyperlipidemia, unspecified, I10 - Essential (primary) hypertension, M81.0 - Age-related osteoporosis without current pathological fracture Alanine Aminotransferase 08/26/24 E78.5 - Hyperlipidemia, unspecified, I10 - Essential (primary) hypertension, M81.0 - Age-related osteoporosis without current pathological fracture Medications: New azithromycin For 250 mg dose pack: take 500 mg today (day 1), then 250 mg for 4 days (days 2-5) PO 6 tabs 0RF
== END 2024-03-25 12:13 | disposition home or self-care (01) ==
LOC: HO.HMCC 11:26
PROVIDERS: PCP Internal Medicine; Visit Provider Internal Medicine
DX: J22 Unspecified acute lower respiratory infection (principal); E78.5 Hyperlipidemia, unspecified; I10 Essential (primary) hypertension

== ENCOUNTER 2024-03-25 11:25 | Outpatient (REF) | payer MEDICARE, SELFPAY ==
[2024-03-25 14:17] LABS: Influenza A PCR NEGATIVE (Negative); Influenza B PCR NEGATIVE (Negative); Resp Syncy Virus RNA Qual PCR NEGATIVE (Negative); SARS COV2 PCR INHOUSE NEGATIVE (Negative)
== END 2024-03-25 11:26 | disposition home or self-care (01) ==
LOC: HO.LAB 11:25
PROVIDERS: PCP Internal Medicine; Visit Provider Internal Medicine
DX: J22 Unspecified acute lower respiratory infection (principal); E78.5 Hyperlipidemia, unspecified; I10 Essential (primary) hypertension; M81.0 Age-related osteoporosis without current pathological fracture
CPT/HCPCS: 0241U; 96127; 99212

== ENCOUNTER 2024-06-18 10:19 | Outpatient (AMB) | payer MEDICARE, SELFPAY ==
--- NOTE | 2024-06-18 11:01 | MHC.OFFWIV ---
Intake Vital Signs 06/18/24 11:02 Weight 119 lb BP 130/90 H Blood Pressure Location Lt brachial Position Sitting Pulse 61 Pulse Source Pulse Oximeter Temp 98.7 F Temp Source Oral Pulse Oximetry (%) 96 Oxygen Delivery Method Room Air Intake Visit Reasons: EP dizzy, sob, ears clogged up, no appetite. Intake Note: Patient here for left ear blockage, dizzy, nausea, sob, loss of appetite which has been present for about 2-3 weeks. Patient Tobacco Use Status: Former Tobacco user Allergies metronidazole [From FLAGYL] Adverse Reaction (Mild, Verified 06/18/24 11:03) ANOREXIA From Avelox Adverse Reaction (Mild, Uncoded 06/18/24 11:03) NASUEA,CONFUSION Do you need a note to return to daycare/school/sports/work: No HPI HPI Comments History of Present Illness Details This is a 74-year-old female with a past medical history peptic ulcer disease, hypertension, hyperlipidemia and anxiety presenting for evaluation of left ear congestion and dizziness that she has had intermittently for the past 2-3 weeks. Patient states that she used Debrox to flush out her left ear but her symptoms persist. Patient is also requesting a refill of her meclizine which has previously been helpful for her dizziness. Patient states this is a chronic problem with her left ear in his managed by Dr. Bains at [facility] in [place], [place]. The patient denies any recent injury, falls or trauma, and denies any headaches, visual changes, neck pain or syncope. [facility] Medical History (Updated 06/18/24 @ 11:38 by Jaqueline Barry PA-C) Irritable larynx syndrome Osteoporosis Congestion of nasal sinus Post-nasal drainage Macular degeneration of left eye Chest pain Irritable bowel syndrome with constipation Skin lesion of back Diverticulitis Salivary duct obstruction GERD with stricture Esophagus, Sharma's Intermittent palpitations Osteopenia of hip PUD (peptic ulcer disease) Cemento-osseous dysplasia Anxiety Essential hypertension Dyslipidemia Surgical History Hx of colonoscopy Family History Father No problems noted. Mother No problems noted. Brother Hypertension Other Substance abuse Social [facility] Alcohol intake: current Patient Tobacco Use Status: Former Tobacco user Tobacco use type: Cigarette e-Cigarette/Vaping Use: Never Used service: No Current occupational status: retired Cognitive needs: No Hearing needs: No Vision needs: Yes Review of Systems Const All systems reviewed & are unremarkable except as noted in HPI and below Reports as per HPI, Denies frequent falls and Denies headache(s) Eyes Reports as per HPI, Denies change in vision, Denies loss of vision, Denies seeing flashes and Denies photophobia ENT Reports no additional complaints, Reports dizziness, Denies otalgia, Denies headache(s) and Reports other (left ear feels blocked ) Card Reports no additional complaints and Denies syncope Resp Reports no additional complaints GI Reports no additional complaints Reports no additional complaints Musc Reports no additional complaints Skin/Breast Reports system reviewed and no additional complaints, except as documented Neuro Reports no additional complaints, Reports dizziness, Denies syncope, Denies frequent falls, Denies headache(s) and Denies loss of vision Psych Reports no additional complaints Tom/Lymph Reports no additional complaints Aller/Immun Reports no additional complaints Physical Exam Vital Signs: Last Vital Signs Temp 98.7 F 06/18/24 11:02 Pulse 61 06/18/24 11:02 BP 130/90 H 06/18/24 11:02 Pulse Ox 96 06/18/24 11:02 Oxygen Delivery Method Room Air 06/18/24 11:02 Const General: cooperative, healthy appearing, comfortable, no acute distress, well developed, alert, awake and Physically active; No lethargic Nutritional Appearance: average body habitus Orientation/consciousness: patient oriented x3 and No lethargic Limitations: no limitations HEENT Head: Yes normal to inspection and Yes normocephalic Ears: hearing grossly normal bilaterally, external ears normal, TM normal on the right, left TM abnormal (fluid level noted behind left TM; no erythema) and EAC's normal General nose exam: Normal external nose present Face and sinus: Yes normal facial exam Mouth: Normal oral and palatal mucosa present and moist mucous membranes Throat: Yes posterior oropharynx normal and No postnasal drainage Eyes General: appearance normal, both eyes and all related structures Visual Murphy: normal visual murphy by confrontation Alignment and Position: alignment normal Pupils: Equal, round and reactive pupils present EOM: EOMs intact bilaterally Direct Ophthalmoscopy: no photophobia and No photophobia Back/Spine/Pelvis Cervical Spine: normal cervical lordosis, No cervical muscular tenderness, No cervical spasm and No Cervical spine tenderness Skin General skin exam: no rashes or lesions noted Neuro General: patient oriented x3 Cranial nerves: Yes Equal, round and reactive pupils present Gait exam (Neuro): Normal gait present Psych Appearance: grossly normal Mental Status: mental status grossly normal Insight: Good insight present (Psych) Judgement: Good judgement present (Psych) Assessment & Plan Assessment & Plan (1) Eustachian tube dysfunction: Comment: There is no evidence of an otitis media, patient is neurologically intact and has no dizziness upon examination. Patient will be discharged home with prednisone. Code(s): H69.90 - Unspecified Eustachian tube disorder, unspecified ear Qualifiers: Laterality: left Qualified Code(s): H69.92 - Unspecified Eustachian tube disorder, left ear Plan: Prednisone 40 mg x 5 days; meclizine is refilled for patient to use only as needed. Medications: New prednisone 40 mg (2 x 20 mg) PO DAILY 10 tabs 0RF meclizine 25 mg PO TID PRN 10 tabs 0RF dizziness Coding Level of Care Code Est Pt Level 3 (67518) Diagnoses Dysfunction of left eustachian tube H69.92 Laterality: left Time Spent (min) 20
[2024-06-18 11:02] VITALS: BP 130/90; PULSE 61; TEMP 37.1; O2SAT 96
--- OUTSIDE RECORDS SUMMARY | 2024-06-18 11:20 | XMS_ITS | Encounter Summary ---
Author Organization [facility] Address [address] [place] [address] Care Team Providers Care Exhaust Worker Name Role Phone Carolina Fairbanks MD Primary Care Provider Encounter Details Date Type Department Care Team (Latest Contact Info) Description 05/06/2024 Lab Requisition [facility] [address] [facility] [place] [phone] Jorge Luis Penaloza MD [address] [phone] Encounter for gynecological examination (general) (routine) without abnormal findings Social History Tobacco Use Types Packs/Day Years Used Date Smoking Tobacco: Never Assessed Sex and Gender Information Value Date Recorded Sex Assigned at Not on file Gender Identity Not on file Sexual Orientation Not on file documented as of this encounter Plan of Treatment Not on file documented as of this encounter Procedures Procedure Name Priority Date/Time Associated Diagnosis Comments PAP SMEAR Routine 05/05/2024 12:00 AM EST Encounter for gynecological examination (general) (routine) without abnormal findings documented in this encounter Results * Pap smear (05/05/2024 12:00 AM EST) Interpretation Negative for intraepithelial lesion or malignancy 05/07/2024 6:20 PM EST [facility] General Categorization Negative 05/07/2024 6:20 PM EST [facility] Other Findings Atrophy 05/07/2024 6:20 PM [facility] Specimen Adequacy Satisfactory for evaluation 05/07/2024 6:20 PM [facility] Disclaimer Note: The Pap test is a screening test which carries an inherent false negative rate. These test results should be correlated with the patient's clinical findings and history. This Pap test was processed using an automated screening system. Technical cytopathology services provided by [facility], at [address] [place] [address] (CLIA # [id number]/Gita Barragan MD, Strategic Planning Analyst.) 05/07/2024 6:20 PM [facility] Console Pap Interpretation Reported 05/07/2024 6:20 PM [facility] Brushing/Spatula Cervix uteri structure / Unknown 05/05/2024 05/06/2024 8:41 AM EST Jorge Luis Penaloza MD LAB CYTOLOGY ORDERAB LES [facility] [address] [place] [address], documented in this encounter Visit Diagnoses Diagnosis Encounter for gynecological examination (general) (routine) without abnormal findings documented in this encounter Care Teams Exhaust Worker Relationship Specialty Start Date End Date Carolina Fairbanks MD PCP - General Internal Medicine 05/06/24 documented as of this encounter
--- OUTSIDE RECORDS SUMMARY | 2024-06-18 11:20 | XMS_ITS | Clinical Summary ---
Author Organization [address] [facility] Address [address] [place] [address] Phone Care Team Providers Care Foundry Tender Name Role Phone Carolina Pizano MD Primary Care Provider [phone] Encounters Date Type Department Care Team Description 05/06/2024 Lab Requisition [facility] - Main Lab [address] [facility] [place] [phone] Jorge Luis Penaloza MD Encounter for gynecological examination (general) (routine) without abnormal findings 03/19/2024 10:18 AM EDT - 03/19/2024 11:59 PM EDT Hospital Encounter [facility] [address] [place] [phone] Carolina Pizano MD Discharge Disposition: Home or Self Care from Last 3 Months Social History Tobacco Use Types Packs/Day Years Used Date Smoking Tobacco: Never Assessed Sex and Gender Information Value Date Recorded Sex Assigned at Not on file Gender Identity Not on file Sexual Orientation Not on file Plan of Treatment Health Maintenance Due Date Last Done Comments DTaP,Tdap,and Td Vaccines (1 - Tdap) 1971 Zoster Vaccines (1 of 2) 2002 Pneumococcal Vaccine: 65+ Years (1 of 1 - PCV) 2017 Colorectal Cancer Screening: Colonoscopy 04/26/2022 Depression Screening 04/26/2022 Falls Risk Assessment 04/26/2022 Hepatitis C Screening 04/26/2022 Social Influencers of Health Screening 04/26/2022 COVID-19 Vaccine ( season) 2024 Influenza Vaccine (#1) 2024 Breast Cancer Screening 03/19/2026 03/19/20 24, 02/07/2023, 02/01/2022, Additional history exists RSV Immunization Patients 60+ Years Old (1 - 1-dose 75+ series) 2027 Osteoporosis Screening (Bone Density Screening) 02/03/2032 02/02/2022 HIB Vaccines Aged Out No longer eligi ble based on patient's age to complete this topic HPV Vaccines Aged Out No longer eligi ble based on patient's age to complete this topic Hepatitis A Vaccines Aged Out No long er eligible based on patient's age to complete this topic Hepatitis B Vaccines Aged Out No long er eligible based on patient's age to complete this topic IPV Vaccines Aged Out No longer eligi ble based on patient's age to complete this topic MMR Vaccines Aged Out No longer eligi ble based on patient's age to complete this topic Meningococcal ACWY Vaccine Aged Out N o longer eligible based on patient's age to complete this topic RSV Immunization Patients Under 20 months Aged Out No longer eligible based on patient's age to complete this topic Varicella Vaccines Aged Out No longer eligible based on patient's age to complete this topic Procedures Procedure Name Priority Date/Time Associated Diagnosis Comments PAP SMEAR Routine 05/05/2024 12:00 AM EST Encounter for gynecological examination (general) (routine) without abnormal findings [facility] SCREENING DIGITAL Routine 03/19/2024 11:23 AM EDT [facility] DEXA AXIAL SKELETON Routine 02/02/2022 7:39 AM EDT Encounter for screening for osteoporosis from Last 3 Months or Most Recently Relevant to Health Maintenance Results * Pap smear (05/05/2024 12:00 AM EST) Interpretation Negative for intraepithelial lesion or malignancy 05/07/2024 6:20 PM EST [facility] [place] [facility]) [facility] General Categorization Negative 05/07/2024 6:20 PM EST [facility] Other Findings Atrophy 05/07/2024 6:20 PM EST [facility] Specimen Adequacy Satisfactory for evaluation 05/07/2024 6:20 PM EST [facility] Disclaimer Note: The Pap test is a screening test which carries an inherent false negative rate. These test results should be correlated with the patient's clinical findings and history. This Pap test was processed using an automated screening system. Technical cytopathology services provided by [facility], at [address] [place] [address] (CLIA # [id number]/Gita Barragan MD, Retail Training Manager.) 05/07/2024 6:20 PM [facility] Console Pap Interpretation Reported 05/07/2024 6:20 PM [facility] Brushing/Spatula Cervix uteri structure / Unknown 05/05/2024 05/06/2024 8:41 AM EST Jorge Luis Penaloza MD LAB CYTOLOGY ORDERAB LES [facility] [address] [place] [address], * [facility] SCREENING DIGITAL (03/19/2024 11:23 AM EDT) Anatomical Region Laterality Modality Mammography 03/19/2024 10:0 3 AM EDT Narrative 03/19/2024 11:23 AM EDT [facility] Diagnostic Imaging Department [address] [place] [address] Patient: ??ANIBAL ALFARO ?/Age/Sex: 1950 - 73 - F Unit#: ??[id number] ? Location/Status: ??SPDIMAM/REG CLI ? Mnemonic/Ordering Site: ??DIGSC/SPMAM Ordering Physician: ??CAROLINA PIZANO MD [place] Screening Digital - 03/19/24 - 1024 Report Status:Signed EXAM: [facility] Screening Digital EXAM DATE AND TIME: 03/19/2024 10:25 AM HISTORY: ??Annual screening COMPARISON: ??02/07/2023, 02/01/2022, 01/28/2021, 01/26/2020 and 06/12/2018 TECHNIQUE: Bilateral digital breast tomosynthesis was performed in the CC and MLO projections. Computer aided detection with [employer] 7.2-H and [employer] 3D 3.1 was employed. TISSUE DENSITY: b. There are scattered areas of fibroglandular density. FINDINGS: No suspicious masses, grouped microcalcifications, or areas of architectural distortion are seen. The skin and vascularity are unremarkable. IMPRESSION: Stable mammographic appearance of the breasts. ??No evidence of malignancy is seen. A negative mammogram in the presence of a clinically suspicious palpable abnormality does not preclude the possibility of malignancy or alter the indications for biopsy. BI-RADS: ??Category 1: Negative RECOMMENDATION(S): 1: Routine screening mammogram BILATERAL in 1 year. Dictating Physician: ??RAHEL RANDLE MD Electronically Signed by: ??RAHEL RANDLE MD Dic Date/Time: ??03/19/24 1116 Sign date/Time: ??03/19/24 1123 Procedure Note Rahel Randle MD - 03/25/2024 [facility] Diagnostic Imaging Department [address] [place] [address] Patient: ANIBAL ALFARO /Age/Sex: 1950 - 73 - F Unit#: [id number] Location/Status: SPDIMAM/REG CLI Mnemonic/Ordering Site: [facility] Ordering Physician: CAROLINA PIZANO MD [facility] Screening Digital - 03/19/24 - 1024 Report Status:Signed EXAM: [facility] Screening Digital EXAM DATE AND TIME: 03/19/2024 10:25 AM HISTORY: Annual screening COMPARISON: 02/07/2023, 02/01/2022, 01/28/2021, 01/26/2020 and 06/12/2018 TECHNIQUE: Bilateral digital breast tomosynthesis was performed in the CCand MLO projections. Computer aided detection with [employer] 7[employer]-H and[employer] 3D 3.1 was employed. TISSUE DENSITY: b. There are scattered areas of fibroglandular density. FINDINGS: No suspicious masses, grouped microcalcifications, or areas ofarchitectural distortion are seen. The skin and vascularity are unremarkable. IMPRESSION: Stable mammographic appearance of the breasts. No evidence of malignancyis seen. A negative mammogram in the presence of a clinically suspicious palpable abnormality does not preclude the possibility of malignancy or alter the indications for biopsy. BI-RADS: Category 1: Negative RECOMMENDATION(S): 1: Routine screening mammogram BILATERAL in 1 year. Dictating Physician: RAHEL RANDLE MD Electronically Signed by: RAHEL RANDLE MD Dic Date/Time: 03/19/24 1116 Sign date/Time: 03/19/24 1123 Carolina Pizano MD IMG BI PROCEDURES * [facility] DEXA AXIAL SKELETON (02/02/2022 7:39 AM EDT) Anatomical Region Laterality Modality Mammography 02/01/2022 9:54 AM EDT Narrative 02/02/2022 7:39 AM EDT [facility] Diagnostic Imaging Department [address] [place] [address] Patient: ??ANIBAL ALFARO ?/Age/Sex: 1950 - 71 - F Unit#: ??[id number] ? Location/Status: ??SPDIMAM/REG CLI ? Mnemonic/Ordering Site: ??MAMDEXAAX/SPMAM Ordering Physician: ??JORGE LUIS PENALOZA MD [facility] Dexa Axial Skeleton - 02/01/22 - 1114 HISTORY: ??The patient is a 71-year-old postmenopausal female with clinical concern for metabolic bone disease. FINDINGS: ??Dual energy x-ray absorptiometry of the lumbar spine and femurs is performed. The mean bone mineral density at L1-3 is 0.953 gm/cm2 which is 81% of that of young normals and 102% of that of age matched controls. This yields a T- score of -1.8 and a Z-score of 0.1 which is diagnostic of osteopenia. The mean bone mineral density of the femurs bilaterally is 0.745 gm/cm2 which is 74% of that of young normals and 93% of that of age matched controls. ??This yields a T-score of -2.1 and a Z-score of -0.4 which is diagnostic of osteopenia. ??However, the T-score of the right femoral neck is -2.6 and that of the left femoral neck is -2.5 which is diagnostic of osteoporosis. IMPRESSION: 1. Osteoporosis. ??There has been an increase of 6.8% in bone mineral density in the lumbar spine since the prior examination of 09/14/2014. ??There has been a decrease of 6.2% in bone mineral density in the right femur and a decrease of 3.5% in bone mineral density in the left femur. 2. FRAX analysis yields a 10-year probability of major osteoporotic fracture of 24.5% and a 10-year probability of hip fracture of 6.6%. Code 03963 Dictating Physician: ??NIKO HAWTHORNE MD Electronically Signed by: ??NIKO HAWTHORNE MD Dic Date/Time: ??02/02/22 0738 Sign date/Time: ??02/02/22 0739 Procedure Note Niko Hawthorne MD - 05/17/2022 [facility] Diagnostic Imaging Department [address] [place] [address] Patient: ANIBAL ALFARO Yamile Rubalcava/Age/Sex: 1950 - 71 - F Unit#: [id number] Location/Status: SPDIMA/REG CLI [facility] Ordering Physician: JORGE LUIS PENALOZA MD [place] Dexa Axial Skeleton - 02/01/22 - 1114 HISTORY: The patient is a 71-year-old postmenopausal female withclinical concern for metabolic bone disease. FINDINGS: Dual energy x-ray absorptiometry of the lumbar spine and femursis performed. The mean bone mineral density at L1-3 is 0.953 gm/cm2 which is81% of that of young normals and 102% of that of age matched controls. Thisyields a T- score of -1.8 and a Z-score of 0.1 which is diagnostic of osteopenia. The mean bone mineral density of the femurs bilaterally is 0.745 gm/ye6xnfsv is 74% of that of young normals and 93% of that of age matched controls.This yields a T-score of -2.1 and a Z-score of -0.4 which is diagnostic of osteopenia. However, the T-score of the right femoral neck is -2.6 andthat of the left femoral neck is -2.5 which is diagnostic of osteoporosis. IMPRESSION: 1. Osteoporosis. There has been an increase of 6.8% in bone mineraldensity in the lumbar spine since the prior examination of 09/14/2014. There has denver decrease of 6.2% in bone mineral density in the right femur and a decreaseof 3.5% in bone mineral density in the left femur. 2. FRAX analysis yields a 10-year probability of major osteoporoticfracture of 24.5% and a 10-year probability of hip fracture of 6.6%. Code 01549 Dictating Physician: NIKO HAWTHORNE MD Electronically Signed by: NIKO HAWTHORNE MD Dic Date/Time: 02/02/22 0738 Sign date/Time: 02/02/2239 Jorge Luis Penaloza MD IMG BI PROCEDURES from Last 3 Months or Most Recently Relevant to Health Maintenance Care Teams Foundry Tender Relationship Specialty Start Date End Date Carolina Pizano MD PCP - General Internal Medicine 05/06/24
== END 2024-06-18 11:33 | disposition home or self-care (01) ==
PROVIDERS: PCP Internal Medicine; Visit Provider Physician Assistant
DX: H69.92 Unspecified Eustachian tube disorder, left ear (principal)

== ENCOUNTER → 2024-06-18 10:19 | Outpatient (BNVA) | payer MEDICARE, SELFPAY | PROVIDERS: PCP Internal Medicine; Visit Provider Physician Assistant | DX: H69.92 Unspecified Eustachian tube disorder, left ear (principal) | CPT/HCPCS: 99212 ==

== ENCOUNTER 2024-07-29 08:07 | Outpatient (REF) | payer MEDICARE, SELFPAY ==
--- OUTSIDE RECORDS SUMMARY | 2024-07-29 08:18 | XMS_ITS | Encounter Summary ---
Author Organization [facility] Address [address] [place] [address] Care Team Providers Care Bank Worker Name Role Phone Carolina Fairbanks MD Primary Care Provider Encounter Details Date Type Department Care Team (Late Contact Info) Description 06/27/2024 Telephone Gastroenterology - 299 [facility] [address] [phone] Preston Barnhart MD [address] [address] Social History Tobacco Use Types Packs/Day Years Used Date Smoking Tobacco: Never Assessed Comments Unknown Sex and Gender Information Value Date Recorded Sex Assigned at Not on file Legal Sex Female 4:14 PM EST Gender Identity Not on file Sexual Orientation Not on file documented as of this encounter Plan of Treatment Upcoming Encounters Date Type Department Care Team (Late Contact Info) Description 09/03/2024 12:30 PM EDT Appointment [facility] Endoscopy [address] [place] [phone] Preston Barnhart MD [address] [phone] documented as of this encounter Visit Diagnoses Not on filedocumented in this encounter Care Teams Bank Worker Relationship Specialty Start Date End Date Carolina Fairbanks MD PCP - General Internal Medicine 05/06/24 documented as of this encounter
--- OUTSIDE RECORDS SUMMARY | 2024-07-29 08:18 | XMS_ITS | Encounter Summary ---
Author Organization [facility] Address [address] [place] [address] Care Team Providers Care Mapping Engineer Name Role Phone Carolina Fairbanks MD Primary Care Provider Encounter Details Date Type Department Care Team (Latest Contact Info) Description 05/06/[address] [facility] - Main Lab 299 [facility] [place] [phone] Jorge Luis Penaloza MD 299 [facility] [address] [place] [phone] Encounter for gynecological examination (general) (routine) without [...] Encounters Date Type Department Care Team (Late st Contact Info) Description 09/03/2024 12:30 PM EDT Appointment [facility] Endoscopy [address] [place] [address] Preston Barnhart MD 229 [facility] [address] [place], [place] [phone] documented as of this encounter Procedures Procedure Name Priority Date/Time Associated Diagnosis Comments PAP SMEAR Routine 05/05/2024 12:00 AM EST Encounter for gynecological examination (general) (routine) without abnormal findings documented in this encounter Results * Pap smear (05/05/2024 12:00 AM EST) Interpretation Negative for intraepithelial lesion or malignancy 05/07/2024 6:20 PM EST [facility] General Categorization Negative 05/07/2024 6:20 PM EST [facility] Other Findings Atrophy 05/07/2024 6:20 PM [facility] Specimen Adequacy Satisfactory for evaluation 05/07/2024 6:20 PM [facility] Disclaimer Note: The Pap test is a screening test which carries an inherent false negative rate. These test results should be correlated with the patient's clinical findings and history. This Pap test was processed using an automated screening system. Technical cytopathology services provided by [facility], at [address] [place] [address] (CLIA # [id number]/Gita Barragan MD, Coremaker Floor.) 05/07/2024 6:20 PM [facility] Console Pap Interpretation Reported 05/07/2024 6:20 PM [facility] Brushing/Spatula Cervix uteri structure / Unknown 05/05/2024 05/06/2024 8:41 AM EST us Jorge Luis Penaloza MD LAB CYTOLOGY ORDERABLES Final Result [facility] [address] [place] [address], documented in this encounter Visit Diagnoses Diagnosis Encounter for gynecological examination (general) (routine) without abnormal findings documented in this encounter Care Teams Mapping Engineer Relationship Specialty Start Date End Date Carolina Fairbanks MD PCP - General Internal Medicine 05/06/24 documented as of this encounter
--- OUTSIDE RECORDS SUMMARY | 2024-07-29 08:18 | XMS_ITS | Clinical Summary ---
Author Organization 299 [facility] Address [address] [place] [address] Phone Care Team Providers Care Construction Ironworker Name Role Phone Carolina Pizano MD Primary Care Provider Encounters Date Type Department Care Team Description 06/27/2024 Telephone Gastroenterology - [address] [phone] Preston Barnhart MD 06/27/2024 Telephone Gastroenterology - [address] [phone] Geena Gutierrez [place] 05/06/2024 Lab Requisition [facility] - Main Lab 299 [facility] [place] [phone] Nano Penaloza MD Encounter for gynecological examination (general) (routine) without abnormal findings from Last 3 Months Social History Tobacco Use Types Packs/Day Years Used Date Smoking Tobacco: Never Assessed Comments Unknown Sex and Gender Information Value Date Recorded Sex Assigned at Not on file Legal Sex Female 4:14 PM EST Gender Identity Not on file Sexual Orientation Not on file Plan of Treatment Upcoming Encounters Date Type Department Care Team ([facility] st Contact Info) Description 09/03/2024 12:30 PM EDT Appointment [facility] Endoscopy [address] [place] [phone] Preston Barnhart MD [address] [phone] Health Maintenance Due Date Last Done Comments DTaP,Tdap,and Td Vaccines (1 - Tdap) 1971 Pneumococcal Vaccine: 50+ Years (1 of 1 - PCV) 2002 Zoster Vaccines (1 of 2) 2002 Colorectal Cancer Screening: Colonoscopy 04/26/2022 Depression Screening 04/26/2022 Falls Risk Assessment 04/26/2022 Hepatitis C Screening 04/26/2022 Medicare Annual Wellness Visit 04/26/2022 Social Influencers of Health Screening 04/26/2022 COVID-19 Vaccine ( - season) 2024 Influenza Vaccine (#1) 2024 Breast [...] patient's age to complete this topic Meningococcal B Vacine Aged Out No lo nger eligible based on patient's age to complete [...] gynecological examination (general) (routine) without abnormal findings [facility] SCREENING DIGITAL Routine 03/19/2024 11:23 AM EDT [facility] DEXA AXIAL SKELETON Routine 02/02/2022 7:39 AM EDT Encounter for screening for osteoporosis from Last 3 Months or Most Recently Relevant to Health Maintenance Results * Pap smear (05/05/2024 12:00 AM EST) Interpretation Negative for intraepithelial lesion or malignancy 05/07/2024 6:20 PM EST [facility] General Categorization Negative 05/07/2024 6:20 PM EST [facility] Other Findings Atrophy 05/07/2024 6:20 PM [facility] Specimen Adequacy Satisfactory for evaluation 05/07/2024 6:20 PM EST [facility] Disclaimer Note: The Pap test is a screening test which carries an inherent false negative rate. These test results should be correlated with the patient's clinical findings and history. This Pap test was processed using an automated screening system. Technical cytopathology services provided by [facility], at [address] [place] [address] (CLIA # [id number]/Gita Barragan MD, Supervisor Properties.) 05/07/2024 6:20 PM [facility] Console Pap Interpretation Reported 05/07/2024 6:20 PM [facility] Brushing/Spatula Cervix uteri structure / Unknown 05/05/2024 05/06/2024 8:41 AM EST us Nano Penaloza MD LAB CYTOLOGY ORDERABLES Final Result [facility] [address] [place] [address], * [facility] SCREENING DIGITAL (03/19/2024 11:23 AM EDT) Anatomical Region Laterality Modality Mammography 03/19/2024 10:0 3 AM EDT Narrative 03/19/2024 11:23 AM EDT [facility] Diagnostic Imaging Department [address] [place] [address] Patient: ??GIANNI ALFAROAN Yamile ?/Age/Sex: 1950 - 73 - Unit#: ??[id number] ? Location/Status: ??SPDIMAM/REG CLI ? Mnemonic/Ordering Site: ??DIGSC/SPMAM Ordering Physician: ??CAROLINA PIZANO MD [facility] Screening Digital - 03/19/24 - 1024 Report Status:Signed EXAM: [facility] Screening Digital EXAM DATE AND TIME: 03/19/2024 10:25 AM HISTORY: ??Annual screening COMPARISON: ??02/07/2023, 02/01/2022, 01/28/2021, 01/26/2020 and 06/12/2018 TECHNIQUE: Bilateral digital breast tomosynthesis was performed in the CC and MLO projections. Computer aided detection with [employer] 7.2-H and [employer] 3[employer] 3.1 was employed. TISSUE DENSITY: b. [...] mammogram BILATERAL in 1 year. Dictating Physician: ??JOANN RANDLE MD Electronically Signed by: ??JOANN RANDLE MD Dic Date/Time: ??03/19/24 1116 Sign date/Time: ??03/19/24 1123 Procedure Note Joann Randle MD - 03/25/2024 [facility] Diagnostic Imaging Department [address] [place] [id number] Patient: STEFANIBAL /Age/Sex: 1950 - 73 - F Unit#: [id number] Location/Status: [facility] Mnemonic/Ordering Site: [facility] Ordering Physician: CAROLINA PIZANO MD [facility] Screening Digital - 03/19/24 - 1024 Report Status:Signed EXAM: [facility] Screening Digital EXAM DATE AND TIME: 03/19/2024 10:25 AM HISTORY: Annual screening COMPARISON: 02/07/2023, 02/01/2022, 01/28/2021, 01/26/2020 and 06/12/2018 TECHNIQUE: Bilateral digital breast tomosynthesis was performed in the CCand MLO projections. Computer aided detection with [employer] 7[employer]-H and[employer] 3D 3.1 was employed. TISSUE DENSITY: b. [...] mammogram BILATERAL in 1 year. Dictating Physician: JOANN RANDLE MD Electronically Signed by: JOANN RANDLE MD Dic Date/Time: 03/19/24 1116 Sign date/Time: 03/19/24 1123 us Carolina Pizano MD IMG BI PROCEDURES Final Res ult * [facility] DEXA AXIAL SKELETON (02/02/2022 7:39 AM EDT) Anatomical Region Laterality Modality Mammography 02/01/2022 9:54 AM EDT Narrative 02/02/2022 7:39 AM EDT [facility] Diagnostic Imaging Department [address] [place] [address] Patient: ??ANIBAL ALFARO ?/Age/Sex: 1950 71 - F Unit#: ??[id number] ? Location/Status: ??SPDIMAM/REG CLI ? Mnemonic/Ordering Site: ??MAMDEXAAX/SPMAM Ordering Physician: ??NANO PENALOZA MD [place] Dexa Axial Skeleton - 02/01/224 HISTORY: ??The patient is a 71-year-old postmenopausal [...] probability of hip fracture of 6.6%. Code 55186 Dictating Physician: ??NIKO HAWTHORNE MD Electronically Signed by: ??NIKO HAWTHORNE MD Dic Date/Time: ??02/02/22 0738 Sign date/Time: ??02/02/22 0739 Procedure Note Niko Hawthorne MD - 05/17/2022 [facility] Diagnostic Imaging Department [address] [place] [address] Patient: ANIBAL ALFARO /Age/Sex: 1950 - 71 - F Unit#: [id number] [facility] Mn[facility]/Ordering Site: MAMDEXAAX/SPMAM Ordering Physician: NANO PENALOZA MD [place] Dexa Axial Skeleton - 02/01/22 - 4 HISTORY: The patient is a 71-year-old postmenopausal [...] density of the femurs bilaterally is 0.745 gm/af4ymhtw is 74% of that of young normals [...] probability of hip fracture of 6.6%. Code 53069 Dictating Physician: NIKO HAWTHORNE MD Electronically Signed by: NIKO HAWTHORNE MD Dic Date/Time: 02/02/2238 Sign date/Time: 02/02/22738 Nano Penaloza MD IMG BI PROCEDURES Final Result from Last 3 Months or Most Recently Relevant to Health Maintenance Insurance [employer] [place] MEDICARE ADVANTAGE Care Teams Construction Ironworker Relationship Specialty Start Date End Date Carolina Pizano MD PCP - General Internal Medicine 05/06/24
--- OUTSIDE RECORDS SUMMARY | 2024-07-29 08:18 | XMS_ITS | Continuity of Care Document ---
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 Name Role Phone Magdi MIKE, Carolina Carter Primary Care Physician [id number] Date(s): 07/07/24 - 07/08/[address] [address]- Encounter Diagnosis Dizziness(Final) - 07/07/24 Discharge Disposition: A-D/C Home Attending Physician: Monse Stephens MD Admitting Physician: Edy Rose MD Referring Physician: Not on Staff, Referring MD Encounter Type: Disch Obv Allergies, Adverse Reactions, Alerts Substance Criticality Severity Reaction Reaction Severity Status Flagyl Active Avelox Active Medications atorvastatin 40 mg oral tablet TAKE 1 TABLET BY MOUTH DAILY Start Date: 07/07/24 Status: Ordered Repeat number: 1 Calcium And Vitamin D Combination See Instructions, By Mouth 2 times a day, 0 Refills, Maintenance, 11/10/12 5:27:18 PM EDT Start Date: 11/10/12 Status: Ordered Repeat number: 1 carvedilol 3.125 mg oral tablet 3.125 mg, 1, tablet, By Mouth, 2 times a day, # 180 tablet, Refills 0, Maintenance, 07/07/24 1:47:00PM EST, Partial fill upon patient request if the prescription is for a schedule II opioid drug. Start Date: 07/07/24 Status: Ordered Quantity: 180.0 Unit: tablet Repeat number: 1 Coreg 3.125 mg oral tablet 3.125 mg, Tablet, By Mouth, 07/08/24 9:00:00 AM EST Start Date: 07/08/24 Stop Date: 07/08/24 Status: Completed Repeat number: 1 meclizine 12.5 mg oral tablet = 12.5 mg, By Mouth, 3 times a day, PRN as needed for dizziness, # 30 tablet, 0 Refills, Maintenance, 07/08/24 10:29:00 AM EST, Tablet, [facility], Partial fill upon patient request if the prescription is for a schedule II opioid drug., 153, cm, 07/08/24 3:47:00 EST, Height, 50.5, kg, 07/07/24 11:08:00 EST, Dry Weight Start Date: 07/08/24 Status: Ordered Quantity: 30.0 Unit: tablet Repeat number: 1 Multivitamin By Mouth, Daily, 0 Refills, Maintenance, 11/10/12 5:26:50 PM EDT Start Date: 11/10/12 Status: Ordered Repeat number: 1 Nasal Saline 2 sprays, 4 times a day, 0 Refills, Maintenance, 11/10/12 5:36:21 PM EDT Start Date: 11/10/12 Status: Ordered Repeat number: 1 Shelby-3 Polyunsaturated Fatty Acids By Mouth, 0 Refills, Maintenance, 11/10/12 5:36:53 PM EDT Start Date: 11/10/12 Status: Ordered Repeat number: 1 omeprazole 20 mg oral enteric coated capsule 1 capsule = 20 mg, By Mouth, Daily, # 30 capsule, 0 Refills, Maintenance, 07/07/24 1:47:00 PM EST, EC Capsule, Partial fill upon patient request if the prescription is for a schedule II opioid drug. Start Date: 07/07/24 Status: Ordered Quantity: 30.0 Unit: capsule Repeat number: 1 PT eval and treat for vestibular rehab PT eval and treat for vestibular rehab, See Instructions, # 1 each, Refills 0, Tot. Refills 0, Maintenance, PT eval and treat for vestibular rehab, 07/08/24 10:30:00 AM EST, Compound, 153, cm, 07/08/24 3:47:00 EST, Height, 50.5, kg, 07/07/24 11:08:00 EST, Dry Weight Start Date: 07/08/24 Status: Ordered Quantity: 1.0 Unit: each Repeat number: 1 Vitamin C = 500 mg, By Mouth, Daily, 0 Refills, Maintenance, 11/10/12 5:27:40 PM EDT Start Date: 11/10/12 Status: Ordered Repeat number: 1 Problem List Condition Confirmation Course Effective Dates Status [facility] Informant CKD (chronic kidney disease) Confirmed Active Results Radiology Reports * Exam Date Time Procedure Performing Provider Status 07/07/24 6:42 PM MRI Brain W/O Contrast Do , Stone; Au th (Verified) Notes: (MRI Brain W/O Contrast) Reason For Exam: TIA RESULT: MRI Brain W/O Contrast MRI Brain W/O Contrast INDICATION / CLINICAL QUESTION: Reason: TIA; Clinical Question(s): Infarction; Order Comment: Please see Reference Text for complete list of contraindications Infarction TECHNIQUE: MRI of the brain was performed without contrast utilizing sagittal T1, axial T2, axial FLAIR, axial SWAN, and axial DWI sequences. COMPARISON: CT of 07/07/2024 FINDINGS: BRAIN and EXTRA-AXIAL SPACES: There is a partially empty sella. Otherwise, the midline structures, including sella, corpus callosum, and craniocervical junction, are unremarkable. There is no mass effect, midline shift, or effacement of the basal cisterns. On diffusion weighted imaging, there are no regions of restricted diffusion to indicate an acute or subacute infarct. There is no evidence of intracranial hemorrhage on susceptibility sensitive sequence. Brain parenchyma demonstrates no significant signal abnormality. Ventricles, cisterns, and sulci are normal in size and configuration, without hydrocephalus. No abnormal extra-axial fluid collections are seen. Meningeal surfaces are normal. Major intracranial flow voids are present. EXTRACRANIAL SOFT TISSUES: Orbits are unremarkable. Paranasal sinuses and mastoids are unremarkable. BONES: Marrow signal is preserved. IMPRESSION: Partial empty sella, otherwise, normal MRI brain without contrast. WSN: [id number] Ordering Physician: Monse Stephens Dictated By: Belkis Hwang MD Dictated Date/Time: 07/08/24 7:03 am Reviewed By: Belkis Hwang MD Signed By: Belkis Hwang MD Signed Date/Time: 07/08/24 7:03 am Transcribed By: MERLENE Transcribed Date/Time: 07/08/24 6:57 am * Exam Date Time Procedure Performing Provider Status 07/07/24 10:[address] Angio Neck Hyperacute Stroke Mena Ramos; Auth (Verified) Notes: (CT Angio Neck Hyperacute Stroke) Reason For Exam: Aneurysm, neck vessel(s);Other: RESULT: CT Angio Neck Hyperacute Stroke CT Angio Head Hyperacute Stroke, CT Angio Neck Hyperacute Stroke Reason: Other:; Stroke; Clinical Question(s): Other:; Hematoma Aneurysm / Other: Per review of the chart, 2 day long history of headaches, with onset of nausea and dizziness today. Unsteady gait. TECHNIQUE: CT angiogram of the head and neck was performed after bolus administration of intravenous contrast. 100 mL of Isovue 300 was administered intravenously. Coronal and sagittal MIP reformatted images were obtained. Additional 3-D images were created on a separate workstation under concurrent supervision by the attending radiologist. All stenoses are measured using NASCET criteria. Weight-based protocol using automatic tube modulation was used to optimize exposure parameters. RADIATION DOSE PARAMETERS: CTDIvol Body: 9.23 mGy, DLP Body: 279 mGy*cm. CTDIvol Head: 46.80 mGy, DLP Head: 774 mGy*cm. COMPARISON: Noncontrast CT head performed concurrently. FINDINGS: CTA OF THE NECK: Arch: There is a three vessel aortic arch. There is mild atherosclerotic plaque of the aortic arch,but origins of the supra aortic vessels are patent. Right carotid system: The common carotid and cervical internal carotid arteries are patent. There is minimal calcified atherosclerotic plaque at the carotid bifurcation, but no ICA stenosis (0%) by NASCET criteria. Left carotid system: The common carotid and cervical internal carotid arteries are patent. No stenosis (0%) by NASCET criteria. There is a co-dominant vertebral artery system. Right vertebral: Patent. Left vertebral: Patent. Other: Soft tissues and bones: No evidence of lymphadenopathy or mass. The thyroid is unremarkable. Calcified granuloma at the right lung apex. Visualized lungs are blurred by motion but otherwise grossly clear. Age indeterminate but probably chronic superior endplate compression deformity of T4 with a Schmorl's node. CTA OF THE HEAD: Anterior circulation: Bilateral intracranial ICAs and their TRENT and MCA branches are patent. There is no significant stenosis, proximal cutoff, aneurysm, or vascular malformation. Posterior circulation: Bilateral intracranial vertebral arteries, the basilar artery, and bilateralsuperior cerebellar and posterior cerebral branches are patent. There is no significant stenosis, proximal cutoff, aneurysm, or vascular malformation. Veins: Portions of the major dural venous sinuses are not well opacified due to early phase of contrast enhancement. The opacified portions of the sinuses are patent. Other: Soft tissues and bones: No midline shift or effacement of the basal cisterns. No space-occupying hemorrhage. No acute territorial loss of stratton-white matter differentiation. Orbits are unremarkable. No significant opacification in the paranasal sinuses or mastoid air cells. IMPRESSION: No proximal occlusion or high grade stenosis in the major arteries of the head and neck. WSN: [id number] Ordering Physician: Venancio Carranza Dictated By: Sirena Lyman MD Dictated Date/Time: 07/07/24 11:51 a Reviewed By: Sirena Lyman MD Signed By: Sirena Lyman MD Signed Date/Time: 07/07/24 11:51 am Transcribed By: MERLENE Transcribed Date/Time: 07/07/24 11:01 am * Exam Date Time Procedure Performing Provider Status 07/07/24 10:[address] Angio Head Hyperacute Stroke Mena Ramos; Auth (Verified) Notes: (CT Angio Head Hyperacute Stroke) Reason For Exam: Stroke;Other: RESULT: CT Angio Head Hyperacute Stroke CT Angio Head Hyperacute Stroke, CT Angio Neck Hyperacute Stroke Reason: Other:; Stroke; Clinical Question(s): Other:; Hematoma Aneurysm / Other: Per review of the chart, 2 day long history of headaches, with onset of nausea and dizziness today. Unsteady gait. TECHNIQUE: CT angiogram of the head and neck was performed after bolus administration of intravenous contrast. 100 mL of Isovue 300 was administered intravenously. Coronal and sagittal MIP reformatted images were obtained. Additional 3-D images were created on a separate workstation under concurrent supervision by the attending radiologist. All stenoses are measured using NASCET criteria. Weight-based protocol using automatic tube modulation was used to optimize exposure parameters. RADIATION DOSE PARAMETERS: CTDIvol Body: 9.23 mGy, DLP Body: 279 mGy*cm. CTDIvol Head: 46.80 mGy, DLP Head: 774 mGy*cm. COMPARISON: Noncontrast CT head performed concurrently. FINDINGS: CTA OF THE NECK: Arch: There is a three vessel aortic arch. There is mild atherosclerotic plaque of the aortic arch,but origins of the supra aortic vessels are patent. Right carotid system: The common carotid and cervical internal carotid arteries are patent. There is minimal calcified atherosclerotic plaque at the carotid bifurcation, but no ICA stenosis (0%) by NASCET criteria. Left carotid system: The common carotid and cervical internal carotid arteries are patent. No stenosis (0%) by NASCET criteria. There is a co-dominant vertebral artery system. Right vertebral: Patent. Left vertebral: Patent. Other: Soft tissues and bones: No evidence of lymphadenopathy or mass. The thyroid is unremarkable. Calcified granuloma at the right lung apex. Visualized lungs are blurred by motion but otherwise grossly clear. Age indeterminate but probably chronic superior endplate compression deformity of T4 with a Schmorl's node. CTA OF THE HEAD: Anterior circulation: Bilateral intracranial ICAs and their TRENT and MCA branches are patent. There is no significant stenosis, proximal cutoff, aneurysm, or vascular malformation. Posterior circulation: Bilateral intracranial vertebral arteries, the basilar artery, and bilateralsuperior cerebellar and posterior cerebral branches are patent. There is no significant stenosis, proximal cutoff, aneurysm, or vascular malformation. Veins: Portions of the major dural venous sinuses are not well opacified due to early phase of contrast enhancement. The opacified portions of the sinuses are patent. Other: Soft tissues and bones: No midline shift or effacement of the basal cisterns. No space-occupying hemorrhage. No acute territorial loss of stratton-white matter differentiation. Orbits are unremarkable. No significant opacification in the paranasal sinuses or mastoid air cells. IMPRESSION: No proximal occlusion or high grade stenosis in the major arteries of the head and neck. WSN: [id number] Ordering Physician: Venancio Carranza Dictated By: Sirena Lyman MD Dictated Date/Time: 07/07/24 11:51 a Reviewed By: Sirena Lyman MD Signed By: Sirena Lyman MD Signed Date/Time: 07/07/24 11:51 am Transcribed By: MERLENE Transcribed Date/Time: 07/07/24 11:01 am * Exam Date Time Procedure Performing Provider Status 07/07/24 10:[address] Head-Hyper Acute Stroke Mena Bautista; Auth (Verified) Notes: (CT Head-Hyper Acute Stroke) Reason For Exam: Neuro deficit, acute, stroke suspected;Other: RESULT: CT Head-Hyper Acute Stroke CT Head-Hyper Acute Stroke INDICATION: Reason: Other:; Neuro deficit, acute, stroke suspected; Clinical Question(s): Other:; Hematoma Infarction TECHNIQUE: Noncontrast head CT using axial technique and reconstructed in axial and coronal planes.Iterative reconstruction techniques are used to optimize dose and image quality. COMPARISON: None. FINDINGS: The visualized sinuses are free from disease. The ventricular system and subarachnoid spaces are within normal limits. There is no intracranial hemorrhage, mass effect, or midline shift. No intra or extra- axial fluid collections are identified. The osseous structures are unremarkable. IMPRESSION: There is no intracranial abnormality. WSN: [id number] Ordering Physician: Venancio Carranza Dictated By: Nina Amezquita MD Dictated Date/Time: 07/07/24 10:52 a Reviewed By: Nina Amezquita MD Signed By: Nina Amezquita MD Signed Date/Time: 07/07/24 10:52 am Transcribed By: MERLENE Transcribed Date/Time: 07/07/24 10:51 am Vital Signs Most recent to oldest [Reference Range]: 1 2 3 Height 153 cm (07/08/24 11:18 AM) 153 cm (07/08/24 7:20 AM) 153 cm (07/08/24 3:47 AM) Oxygen Saturation [94-100 %] 98 % (07/08/24 11:18 AM) 98 % (07/08/24 7:20 AM) 100 % (07/08/24 3:47 AM) Pulse Rate [55-90 bpm] 63 bpm (07/08/24 11:18 AM) 62 bpm (07/08/24 8:30 AM) 62 bpm (07/08/24 7:20 AM) Blood Pressure [90-138/55-84 mm Hg] 110/58mm Hg (07/08/24 11:18 AM) 114/71mm Hg (07/08/24 8:30 AM) 114/71mm Hg (07/08/24 7:20 AM) Respiratory Rate [16-30 br/min] 18 br/min (07/08/24 11:18 AM) 18 br/min (07/08/24 7:20 AM) 22 br/min (07/08/24 3:47 AM) Temperature [96.8-100.4 DegF] 98 DegF (07/08/24 11:18 AM) 97.8 DegF (07/08/24 7:20 AM) 97.7 DegF (07/08/24 3:47 AM) Mode of Delivery (Oxygen) Room air (07/08/24 11:18 AM) Room air (07/08/24 7:20 AM) Room air (07/08/24 3:47 AM) Blood pressure sites Arm, right (07/08/24 11:18 AM) Arm, right (07/08/24 7:20 AM) Arm, right (07/08/24 3:47 AM) Temperature Route Oral (07/08/24 11:18 AM) Oral (07/08/24 7:20 AM) Oral (07/08/24 3:47 AM) Dry Weight 50.5 kg (07/07/24 11:08 AM) History and physical note * Monse Stephens MD: PERFORM Event Display: History and Physical Hospital Authored Date: Patient: ??PATRICKANIBLA WATKINS ? Age:??74 Years?Sex:??Female?:??1950?? Chief Complaint/Reason for Consultation Dizziness History of Present Illness 74-year-old female with past medical history of perforated duodenal ulcer, history of hyperlipidemia, palpitations who was recently diagnosed with right ear effusion for which she has taken prednisone in the recent past and now in the process of getting ENT appointment presented to ED with complaint of dizziness ?? Patient told me that she recently was seen at urgent care for right ear effusion and was prescribedprednisone which did help but it recurred.?? She also mentioned to me that for past several months she noticed decreased hearing in right side of the ear.?? This morning she woke up with feeling dizzy and having gait imbalance.?? She told me that she felt that she was on a ship and everything was spinning around her.?? Symptom were constant without any particular aggravating or relieving factor.?? Associate with nausea and multiple episodes of retching.?? She denied any abdominal pain.?? No numbness, tingling or focal weakness.?? Also endorsed headache ?? She denied any chest pain, palpitations, shortness of breath, cough or wheezing ?? Past medical history: History of GERD, hypertension/palpitations, hyperlipidemia ?? Social history: Denies smoking, alcohol or drug use ?? Family history: Noncontributory for CVA Review of Systems ROS: All systems reviewed and negative except as in HPI Objective Vital Signs?? Temperature: 97.6 DegF (07/07/24 14:45:00) Temperature Route: Oral (07/07/24 14:45:00) Pulse Rate: 60 bpm (07/07/24 14:45:00) Respiratory Rate: 20 br/min (07/07/24 14:45:00) Systolic Blood Pressure:??153 mm Hg??High (07/07/24 14:45:00) Diastolic Blood Pressure: 74 mm Hg (07/07/24 14:45:00) Blood pressure sites: Arm, right (07/07/24 14:45:00) Mean Arterial Pressure: 100 mm Hg (07/07/24 14:45:00) Pulse Pressure: 79 mm Hg (07/07/24 14:45:00) Oxygen Saturation: 100 % (07/07/24 14:45:00) Mode of Delivery (Oxygen): Room air (07/07/24 14:45:00) Early Warning Score: 2 (07/07/24 14:46:30) ? Physical Exam GENERAL PEDIATRICIAN: AA0 3, no focal motor or sensory deficit, cranial nerves II to XII intact CVS: RRR, S1, S2, No gallop, murmur or rub Resp: b/l good air entry, no wheezing or rhales, CTA b/l GI: Soft, NT, ND, BS +ve EXT: no pedal edema Skin: no rash Neck: supple,? Head: atraumatic, normocephalic ENMT: moist mucus membranes, nares patent with no discharge Musculoskeletal: no joint tenderness, swelling or limitation of movement ?? Assessment/Plan Assessment:??74-year-old female here with??dizziness/vertigo ?? Dizziness (R42):??From description seems peripheral vertigo.??CT head and CT head and neck without any acute finding. EKG without any change.??Troponin no acute Symptom have improved No focal deficit on my examination Neurology has already seen the patient and have recommended??MRI of the brain No need for physical therapy as patient is improving Meclizine for symptomatic relief Neurochecks Telemetry MRI of the brain Aspirin??and statin Outpatient follow-up with ENT??for hearing issues and??ear effusion ?? Hyperlipidemia (E78.5):??Statin ?? History of palpitations (Z87.898) Hypertension (I10) ? coreg as??my suspicion for stroke is low ?? Chronic GERD (K21.9):??PPI ?? VTE Prophylaxis:??SCD ?VTE Prophylaxis Assessment:??VTE Prophylaxis Ordered ?? Discharge Planning:? Estimated Discharge Date ? Histories Allergies Allergies ?(Active and Proposed Allergies Only) Avelox? (Severity: Unknown severity, Onset: Unknown) Flagyl? (Severity: Unknown severity, Onset: Unknown) ? Medications Home Medications Ascorbic Acid (Vitamin C)??500 Milligram By Mouth Daily Atorvastatin (atorvastatin 40 mg oral tablet)??TAKE 1 TABLET BY MOUTH DAILY Calcium And Vitamin D Combination??See Instructions By Mouth 2 times a day Carvedilol (carvedilol 3.125 mg oral tablet)??3.125 Milligram 1 tablet By Mouth 2 times a day Multivitamin??By Mouth Daily Shelby-3 Polyunsaturated Fatty Acids??By Mouth Omeprazole (omeprazole 20 mg oral enteric coated capsule)??1 capsule 20 Milligram By Mouth Daily Sodium Chloride Nasal (Nasal Saline)??2 spray(s) 4 times a day ? Results ? CBC, CBC w/Diff?? CBC?? Differential?? WBC: 4.2 k/mm3 (10:33) Abs. Neut: 3 k/mm3 (10:33) RBC: 4.43 m/mm3 (10:33) Abs. Lymph: 0.9 k/mm3 (10:33) Hct: 41.9 % (10:33) Abs. Baxter:??0.3 k/mm3??Low (10:33) RDW-SD: 45.4 femtoliters (10:33) Abs. Eo: 0.1 k/mm3 (10:33) Nucleated RBC (Automated): 0 #/100 WBC'S (10:33) Abs. Baso: 0 k/mm3 (10:33) Abs. NRBC: 0 k/mm3 (10:33) Neut %: 71.1 % (10:33) ?? Lymph %: 20.9 % (10:33) ?? Baxter %: 6.4 % (10:33) ?? Eos %: 1.2 % (10:33) ?? Baso %: 0.2 % (10:33) ?? Imm Gran: 0.2 % (10:33) ?? Abs. Imm Gran: 0 k/mm3 (10:33) ? BMP, Mg, and Phos Anion Gap: 12 mmol/L (10:33) Bicarbonate Level: 24 mmol/L (10:33) BUN: 12 mg/dL (10:33) Calcium: 9.2 mg/dL (10:33) Calcium, Ionized pH Corrected: 1.28 mmol/L (10:33) Chloride: 104 mmol/L (10:33) Creatinine-Blood: 0.81 mg/dL (10:33) Estimated GFR Creatinine: 77 ML/MIN/1.73 M2 (10:33) Glucose Level:??109 mg/dL??High (10:33) Magnesium: 2 mg/dL (10:33) Potassium: 3.9 mmol/L (10:33) Sodium: 140 mmol/L (10:33) ?? Coagulation Profile?? No qualifying data available. ?? LFT Albumin: 4.1 Gm/dL (10:33) Alkaline Phosphatase: 64 units/L (10:33) ALT (SGPT): 15 units/L (10:33) AST (SGOT): 23 units/L (10:33) Bilirubin, Total: 0.5 mg/dL (10:33) ?? Urinalysis Albumin, Urine: TRACE Abnormal (12:32) Appear/Color, Urine: LIGHT YELLOW (12:32) Bilirubin, Urine: NEGATIVE (12:32) Est Creatinine Clearance: 45.63 mL/min (11:17) Glucose, Urine: NEGATIVE (12:32) Hemoglobin, Urine: NEGATIVE (12:32) Hold Urine Culture: Testing available 48 hours from time of collection. (12:32) Ketones, Urine: NEGATIVE (12:32) Leukocyte, Urine: NEGATIVE (12:32) Mucus: SLIGHT (12:32) Nitrite, Urine: NEGATIVE (12:32) pH, Urine:??8.5??High (12:32) RBC's, Urine: <1 (12:32) Specific [place], Urine:??1.037??High (12:32) Urobilinogen: NORMAL (12:32) WBC's, Urine: <1 (12:32) ? Cardiology Labs Nt-Probnp:??129 pg/mL??High (07/07/24 10:33:00) High Sensitivity Troponin (HSTnT): 7 ng/L (07/07/24 13:05:00) High Sensitivity Troponin (HSTnT): 6 ng/L (07/07/24 10:33:00) ?? Blood Gases?? No qualifying data available. ?? Uric/LDH?? No qualifying data available. ? EKG study * Event Display: ECG 12-Lead Authored Date: Please click on pdf link to open report * Event Display: ECG 12-Lead Authored Date: Ventricular Rate: 59 BPM Atrial Rate: 59 BPM P-R Interval: 164 ms QRS Duration: 84 ms Q-T Interval: 398 ms QTC Calculation(Bazett): 394 ms P Richmond: 39 degrees R Richmond: -26 degrees T Richmond: 14 degrees Sinus bradycardia Otherwise normal ECG When compared with ECG of 10-Nov-2012 12:13, No significant change was found Confirmed by HARVINDER CHILDRESS ([id number]) on 07/07/2024 3:31:20 PM [place]: HARVINDER CHILDRESS Cardiology * Event Display: Cardiac Rhythm Strips Authored Date: Hospital Progress note * Rachel Genao RN: PERFORM, SIGN, VERIFY Event Display: Progress Note Hospital Authored Date: Patient: ANIBAL FINCH Age: 74 years Sex: Female : 1950 Associated Diagnoses: None Author: Chadwick STEWART, Rachel Findings Narrative/Incidental Pt A&OX4 VSS PIV removed aware S&S to be aware of and follow up , pt denied dizziness was given RX for vestibular rehab and meclizine at bedside needs met . * Herb JUAREZ, Robert Wells: MODIFY, MODIFY, MODIFY, MODIFY, MODIFY, PERFORM Herb JUAREZ, Robert Wells: PERFORM Lupe Layton MD: MODIFY Event Display: Progress Note Hospital Authored Date: [id number] Patient: ??ANIBAL FINCH ? Age:??74 Years?Sex:??Female?:??1950?? Subjective Headache and dizziness, reported sensation of room spinning. Review of Systems Recent issues with right ear effusion, completed??prednisone taper, being followed by ENT. Allergies Allergies ?(Active and Proposed Allergies Only) Avelox? (Severity: Unknown severity, Onset: Unknown) Flagyl? (Severity: Unknown severity, Onset: Unknown) ? Past medical history/Previous surgical history: History of GERD, hypertension/palpitations, hyperlipidemia;??and right ear effusion, being followedby??ENT. ??Salivary gland stone excision in 2008. Right breast lumpectomy in 2000 for which the histology was negative for cancer. ? Social history: Denies smoking, alcohol or drug use;??smoker, smoked 3 packs a day for 9 years but quit almost 30 years ago. ?? Family history:?? Positive for colon cancer in??father/ paternal grandfather.? Objective Measurements?? Height: 153 cm (07/08/24) Dry Weight: 50.5 kg (07/07/24) ? Vital Signs?? Temperature: 97.7 DegF (07/08/24 03:47:00) Temperature Route: Oral (07/08/24 03:47:00) Pulse Rate: 59 bpm (07/08/24 03:47:00) Respiratory Rate: 22 br/min (07/08/24 03:47:00) Systolic Blood Pressure: 111 mm Hg (07/08/24 03:47:00) Diastolic Blood Pressure: 67 mm Hg (07/08/24 03:47:00) Blood pressure sites: Arm, right (07/08/24 03:47:00) Mean Arterial Pressure: 82 mm Hg (07/08/24 03:47:00) Pulse Pressure: 44 mm Hg (07/08/24 03:47:00) Oxygen Saturation: 100 % (07/08/24 03:47:00) Mode of Delivery (Oxygen): Room air (07/08/24 03:47:00) Early Warning Score: 4 (07/08/24 03:47:35) ? Intake/Output? 07/07 09:45 07/07 07:00 07/06 07:00 07/05 07:00 ?? 07/08 06:48 07/08 06:48 07/07 06:59 07/06 06:59 Urine Count ?2 ?2 ?0 ?0 ? Physical Exam Mentation: Awake, alert, oriented x3. Cranial nerves: No facial asymmetry, sensation equal bilateral. ??Pupils??3 mm, equal and react to light; moves eyes in coordinated fashion through all visual bell of gaze, no nystagmus or visual disturbance. ??Speech clear, swallow intact, hearing intact. Motor: Moves all extremities 5/5. Sensation: Reports equal and intact bilaterally to all extremities. Cerebellar: [id number] to finger intact bilaterally. Respiratory: Nonlabored respiratory pattern, breath sounds clear bilaterally. Cardiovascular: Regular rate and rhythm. GI: Abdomen soft, bowel sounds positive. Musculoskeletal: No gross deformities, no limitation in range of motion. ??Normal bulk, normal tone. Vascular: Skin warm and dry, no edema noted, pedal pulses palpable. Psych: Patient pleasant and engaging in conversation, normal thought process, normal speech pattern. HEENT: Atraumatic eyes clear no drainage, nares patent, moist mucous membranes. _ Home Medications Ascorbic Acid (Vitamin C)??500 Milligram By Mouth Daily Atorvastatin (atorvastatin 40 mg oral tablet)??TAKE 1 TABLET BY MOUTH DAILY Calcium And Vitamin D Combination??See Instructions By Mouth 2 times a day Carvedilol (carvedilol 3.125 mg oral tablet)??3.125 Milligram 1 tablet By Mouth 2 times a day Multivitamin??By Mouth Daily Shelby-3 Polyunsaturated Fatty Acids??By Mouth Omeprazole (omeprazole 20 mg oral enteric coated capsule)??1 capsule 20 Milligram By Mouth Daily Sodium Chloride Nasal (Nasal Saline)??2 spray(s) 4 times a day ? Inpatient Medications Medications (13) Active SCHEDULED: (6) Aspirin 81 mg EC Tablet (aspirin 81 mg oral delayed release tablet) ??81 mg, By Mouth, Daily Atorvastatin 40 mg Tablet (Lipitor 40 mg oral tablet) ??40 mg, By Mouth, Daily at bedtime Carvedilol 3.125 mg Tablet (Coreg 3.125 mg oral tablet) ??3.125 mg, By Mouth, 2 times a day Meclizine 12.5 mg Tablet (meclizine 12.5 mg oral tablet) ??12.5 mg, By Mouth, 3 times a day NaCl 0.9% Flush 3ml (NaCL 0.9% Flush) ??3 mL, IV Push, Every 8 hours Pantoprazole 40 mg EC Tablet (Protonix 40 mg oral delayed release tablet) ??40 mg, By Mouth, Daily CONTINUOUS: (0) PRN: (7) Acetaminophen 325 mg Tablet (Acetaminophen Tablet) ??650 mg, By Mouth, Every 4 hours Docusate Sodium 100 mg Capsule (Docusate Sodium Capsule) ??100 mg 1 capsule, By Mouth, 2 times a day Melatonin 3 mg Tablet (Melatonin Tablet) ??3 mg, By Mouth, Daily at bedtime NaCl 0.9% Flush 3ml (NaCL 0.9% Flush) ??3 mL, IV Push, Every 8 hours Ondansetron 2mg/mL Inj (2mL Vial) (Ondansetron Inj) ??4 mg, IV Push Slowly, Every 30 minutes Polyethylene Glycol 17 Gm Powder (MiraLax Powder) ??17 Gm 1 pack/packet, By Mouth, Daily Senna Tablet ??8.6 mg 1 tablet, By Mouth, 2 times a day ? Results Recent Labs BLOOD COUNT & DIFF WBC 4.2 k/mm3 ()?? 07/07/2024 10:33 RBC 4.43 m/mm3 ()?? 07/07/2024 10:33 Hgb 14.2 Gm/dL ()?? 07/07/2024 10:33 Hct 41.9 % ()?? 07/07/2024 10:33 MCV 94.6 femtoliters ()?? 07/07/2024 10:33 MCH 32.1 pg ()?? 07/07/2024 10:33 MCHC 33.9 Gm/dL ()?? 07/07/2024 10:33 Platelet Count 213 k/mm3 ()?? 07/07/2024 10:33 RDW-SD 45.4 femtoliters ()?? 07/07/2024 10:33 MPV 10.3 femtoliters ()?? 07/07/2024 10:33 Nucleated RBC (Automated) 0.0 #/100 WBC'S ()?? 07/07/2024 10:33 Abs. NRBC 0.0 k/mm3 ()?? 07/07/2024 10:33 Abs. Neut 3.0 k/mm3 ()?? 07/07/2024 10:33 Abs. Lymph 0.9 k/mm3 ()?? 07/07/2024 10:33 Abs. Baxter 0.3 k/mm3 (Low)?? 07/07/2024 10:33 Abs. Eo 0.1 k/mm3 ()?? 07/07/2024 10:33 Abs. Baso 0.0 k/mm3 ()?? 07/07/2024 10:33 Neut % 71.1 % ()?? 07/07/2024 10:33 Lymph % 20.9 % ()?? 07/07/2024 10:33 Baxter % 6.4 % ()?? 07/07/2024 10:33 Eos % 1.2 % ()?? 07/07/2024 10:33 Baso % 0.2 % ()?? 07/07/2024 10:33 Imm Gran 0.2 % ()?? 07/07/2024 10:33 Abs. Imm Gran 0.0 k/mm3 ()?? 07/07/2024 10:33 ?? CARDIAC Nt-Probnp 129 pg/mL (High)?? 07/07/2024 10:33 High Sensitivity Troponin (HSTnT) 6 ng/L ()?? 07/07/2024 19:14 ?? CHEM GENERAL Sodium 140 mmol/L ()?? 07/07/2024 10:33 Potassium 3.9 mmol/L ()?? 07/07/2024 10:33 Chloride 104 mmol/L ()?? 07/07/2024 10:33 Bicarbonate Level 24 mmol/L ()?? 07/07/2024 10:33 Anion Gap 12 mmol/L ()?? 07/07/2024 10:33 Glucose Level 109 mg/dL (High)?? 07/07/2024 10:33 Glucose, POC 93 mg/dL ()?? 07/07/2024 10:27 BUN 12 mg/dL ()?? 07/07/2024 10:33 Creatinine-Blood 0.81 mg/dL ()?? 07/07/2024 10:33 Estimated GFR Creatinine 77 ML/MIN/1.73 M2 ()?? 07/07/2024 10:33 Calcium 9.2 mg/dL ()?? 07/07/2024 10:33 Calcium, Ionized pH Corrected 1.28 mmol/L ()?? 07/07/2024 10:33 Magnesium 2.0 mg/dL ()?? 07/07/2024 10:33 Protein, Total 6.8 Gm/dL ()?? 07/07/2024 10:33 Albumin 4.1 Gm/dL ()?? 07/07/2024 10:33 AG Ratio 1.5 ()?? 07/07/2024 10:33 Alkaline Phosphatase 64 units/L ()?? 07/07/2024 10:33 Lipase, Serum/Plasma 53 units/L ()?? 07/07/2024 10:33 AST (SGOT) 23 units/L ()?? 07/07/2024 10:33 ALT (SGPT) 15 units/L ()?? 07/07/2024 10:33 Bilirubin, Total 0.5 mg/dL ()?? 07/07/2024 10:33 ?? ENDOCRINE/TUMOR MARKER TSH 1.64 uIU/mL ()?? 07/07/2024 10:33 ?? HEME OTHER Hold Blue Top SPECIMEN DISCARDED AFTER 4 HOURS. ()?? 07/07/2024 10:33 ?? UA/URINALYSIS Appear/Color, Urine LIGHT YELLOW ()?? 07/07/2024 12:32 Specific [place], Urine 1.037 (High)?? 07/07/2024 12:32 pH, Urine 8.5 (High)?? 07/07/2024 12:32 Albumin, Urine TRACE (Abnormal)?? 07/07/2024 12:32 Glucose, Urine NEGATIVE ()?? 07/07/2024 12:32 Ketones, Urine NEGATIVE ()?? 07/07/2024 12:32 Bilirubin, Urine NEGATIVE ()?? 07/07/2024 12:32 Hemoglobin, Urine NEGATIVE ()?? 07/07/2024 12:32 Nitrite, Urine NEGATIVE ()?? 07/07/2024 12:32 Leukocyte, Urine NEGATIVE ()?? 07/07/2024 12:32 Urobilinogen NORMAL mg/dL ()?? 07/07/2024 12:32 WBC's, Urine <1 /HPF ()?? 07/07/2024 12:32 RBC's, Urine <1 /HPF ()?? 07/07/2024 12:32 Mucus SLIGHT /LPF ()?? 07/07/2024 12:32 Hold Urine Culture Testing available 48 hours from time of collection. ()?? 07/07/2024 12:32 ?? URINE OTHER Est Creatinine Clearance 45.63 mL/min ()?? 07/07/2024 11:17 ? Abnormal Labs ?? BLOOD COUNT & DIFF Abs. Imm Gran?0.0 k/mm3 ()?07/07/2024 10:33 Abs. Baxter?0.3 k/mm3 (Low)?07/07/2024 10:33 Abs. NRBC?0.0 k/mm3 ()?07/07/2024 10:33 Imm Gran?0.2 % ()?07/07/2024 10:33 Nucleated RBC (Automated)?0.0 #/100 WBC'S ()?07/07/2024 10:33 RDW-SD?45.4 femtoliters ()?07/07/2024 10:33 ?? CARDIAC High Sensitivity Troponin (HSTnT)?6 ng/L () ?07/07/2024 19:14 Nt-Probnp?129 pg/mL (High)?07/07/2024 10:33 ?? CHEM GENERAL AG Ratio?1.5 ()?07/07/2024 10:33 Estimated GFR Creatinine?77 ML/MIN/1.73 M2 ()?07/07/2024 10:33 Glucose Level?109 mg/dL (High)?07/07/2024 10:33 ?? HEME OTHER Hold Blue Top?SPECIMEN DISCARDED AFTER 4 HOURS. ()?07/07/2024 10:33 ?? UA/URINALYSIS Albumin, Urine?TRACE (Abnormal)?07/07/2024 12:32 Appear/Color, Urine?LIGHT YELLOW ()?07/07/2024 12:32 Bilirubin, Urine?NEGATIVE ()?07/07/2024 12:32 Glucose, Urine?NEGATIVE ()?07/07/2024 12:32 Hemoglobin, Urine?NEGATIVE ()?07/07/2024 12:32 Hold Urine Culture?Testing available 48 hours from time of collection. () ?07/07/2024 12:32 Ketones, Urine?NEGATIVE ()?07/07/2024 12:32 Leukocyte, Urine?NEGATIVE ()?07/07/2024 12:32 Mucus?SLIGHT /LPF ()?07/07/2024 12:32 Nitrite, Urine?NEGATIVE ()?07/07/2024 12:32 Specific Gree[place], Urine?1.037 (High)?07/07/2024 12:32 Urobilinogen?NORMAL mg/dL ()?07/07/2024 12:32 pH, Urine?8.5 (High)?07/07/2024 12:32 ?? Note: Critical results are displayed in red. ? CBC, CBC w/Diff?? CBC?? Differential?? WBC: 4.2 k/mm3 (10:33) Abs. Neut: 3 k/mm3 (10:33) RBC: 4.43 m/mm3 (10:33) Abs. Lymph: 0.9 k/mm3 (10:33) Hct: 41.9 % (10:33) Abs. Baxter:??0.3 k/mm3??Low (10:33) RDW-SD: 45.4 femtoliters (10:33) Abs. Eo: 0.1 k/mm3 (10:33) Nucleated RBC (Automated): 0 #/100 WBC'S (10:33) Abs. Baso: 0 k/mm3 (10:33) Abs. NRBC: 0 k/mm3 (10:33) Neut %: 71.1 % (10:33) ?? Lymph %: 20.9 % (10:33) ?? Baxter %: 6.4 % (10:33) ?? Eos %: 1.2 % (10:33) ?? Baso %: 0.2 % (10:33) ?? Imm Gran: 0.2 % (10:33) ?? Abs. Imm Gran: 0 k/mm3 (10:33) ? BMP, Mg, and Phos Anion Gap: 12 mmol/L (10:33) Bicarbonate Level: 24 mmol/L (10:33) BUN: 12 mg/dL (10:33) Calcium: 9.2 mg/dL (10:33) Calcium, Ionized pH Corrected: 1.28 mmol/L (10:33) Chloride: 104 mmol/L (10:33) Creatinine-Blood: 0.81 mg/dL (10:33) Estimated GFR Creatinine: 77 ML/MIN/1.73 M2 (10:33) Glucose Level:??109 mg/dL??High (10:33) Magnesium: 2 mg/dL (10:33) Potassium: 3.9 mmol/L (10:33) Sodium: 140 mmol/L (10:33) ?? Coagulation Profile?? No qualifying data available. ?? LFT Albumin: 4.1 Gm/dL (10:33) Alkaline Phosphatase: 64 units/L (10:33) ALT (SGPT): 15 units/L (10:33) AST (SGOT): 23 units/L (10:33) Bilirubin, Total: 0.5 mg/dL (10:33) ?? Urinalysis Albumin, Urine: TRACE Abnormal (12:32) Appear/Color, Urine: LIGHT YELLOW (12:32) Bilirubin, Urine: NEGATIVE (12:32) Est Creatinine Clearance: 45.63 mL/min (11:17) Glucose, Urine: NEGATIVE (12:32) Hemoglobin, Urine: NEGATIVE (12:32) Hold Urine Culture: Testing available 48 hours from time of collection. (12:32) Ketones, Urine: NEGATIVE (12:32) Leukocyte, Urine: NEGATIVE (12:32) Mucus: SLIGHT (12:32) Nitrite, Urine: NEGATIVE (12:32) pH, Urine:??8.5??High (12:32) RBC's, Urine: <1 (12:32) Specific Gree[place], Urine:??1.037??High (12:32) Urobilinogen: NORMAL (12:32) WBC's, Urine: <1 (12:32) ? Cardiology Labs Nt-Probnp:??129 pg/mL??High (07/07/24 10:33:00) High Sensitivity Troponin (HSTnT): 6 ng/L (07/07/24 19:14:00) High Sensitivity Troponin (HSTnT): 9 ng/L (07/07/24 15:35:00) High Sensitivity Troponin (HSTnT): 7 ng/L (07/07/24 13:05:00) ?? Blood Gases?? No qualifying data available. ?? Uric/LDH?? No qualifying data available. ?Imaging per Radiology: 07/07/2024: CT?? Head: There is no intracranial abnormality. CTA: No proximal occlusion or high grade stenosis in the major arteries of the head and neck. ?? 07/08/2024: MRI: Partial empty sella, otherwise, normal MRI brain without contrast. ?? Assessment/Plan HPI: 74 y/o F: PMH includes perforated duodenal ulcer in 2012, hyperlipidemia, palpitations on carvedilol, recent right ear effusion, being treated by ENT recently completed prednisone. ??She presented??to the emergency room on 07/07/2024: 9:58 AM. ??Reports woke up at 7:30 AM with sensation of dizziness and posterior headache. ??She has been having 2 days of headache. ??NIHSS 0. ??Acute stroke was called, CT/CTA negative. ??Admitted to observation unit for MRI overnight, MRI is??negative for acute stroke; partial empty sella. Likely peripheral vertigo. Can f/u with ENT and consider vestibular therapy if symptoms persist. ?? Discussed c Dr. Olinda Dahl; Neurology to sign off. Reporting Meclizine is helping dizziness sensation. ? * Lupe Layton MD: PERFORM Event Display: Progress Note Hospital Authored Date: Attending Attestation:??I have discussed the case and its management with the advanced practitionerand agree with the findings and plan as documented in the advanced practitioner???s note. ?? Lupe Dahl M.D Attending-Vascular Neurology Department of Neurosciences * Chinmay Kennedy RN: PERFORM, SIGN, VERIFY Event Display: Progress Note Hospital Authored Date: Patient: ANIBAL FINCH Age: 74 years Sex: Female : 1950 Associated Diagnoses: None Author: Chinmay Kennedy RN Met patient in bed on taking over. A+O x 3, denies pain, nausea, vomiting, or SOB. Verbalized feeling dizzy with position change and was told to change position slowly and always ask for help with ambulation and she verbalized understanding. Has telemonitor on. Currently in bed, call esteves within reach, told to request assistance as needed, will continue to monitor. Consult note * Dav DASH, Bowen Nichols: PERFORM Event Display: Consultation Note Authored Date: Patient: ??ANIBAL FINCH ? Age:??74 Years?Sex:??Female?:??1950?? Chief Complaint/Reason for Consult pt coming from home [facility] c/io headache x2 days nausea and dizziness that started this am, pt also unsteady gait, pt with hx of unspecified ear problems that have causes these s/s in the past, neg on stroke scale History of Present Illness Anibal is a 74 year old female with a significant past medical hx of perforated duodenal ulcer, hyperlipidemia, palpitations (carvedilol), self reported Left ear effusions follows with ENT presented [facility] complaints of acute onset of dizziness. Patient states around 0800 this morning she felt like dizzy and like she would pass out , also feeling unsteady feeling like she would fall over.She has since experienced associated nausea/vomiting since onset of dizziness. She mentioned that she has experienced similar dizziness sensation in the past (forcing her to crawl from one location to another for fear of falling over) but states these symptoms are worse. CT head nonacute, CTA head/neck without high grade stenosis or LVO. On exam, patient is without cerebellar findings (FTN and heel to villaseñor intact), demonstrates full strength, speech clear and vision intact, NIH 0. ?? Stroke Time Course: Time patient last seen well (not time patient was found/discovered with deficits): 0800 Time patient arrived in ED: 1034 Time neurology consulted/paged:1034 Time neurology responded: [address] head/interpreted: 1046 tPA/tnk Given:??no tPA/tnk ??time if given: n/a Reason for tPA exclusion if not given: lack of focal deficits IA was not done, why? no viable target Review of Systems dizziness w/ associated nausea as mentioned above Physical Exam Vitals & Measurements T:??97?F?? HR:??67??(Peripheral)?? RR:??17?? BP:??151/63?? SpO2:??100%?? HT:??153??cm? Neuro Exam ?? Mental Status: ?alert and oriented to person, place, month, and year ?fluent and appropriate speech, no dysarthria ?able to identify simple objects ?able to follow simple and 2 step commands Cranial nerves:?PERRL ?EOMI ?VFF ?equal light touch sensation ?no facial asymmetry or droop no ptosis noted bilaterally muscle strength: ?appropriate muscle tone and bulk ?no tremors ?5/5 UE ?5/5 LE Sensation ?equal light touch sensation UE and LE Cerebellum ?Finger to nose intact bilaterally?Gait not assessed ?? NIH Stroke Scale:? 1a. LOC (0-alert; 1-not alert, arousable; 2-not alert, obtunded; 3- nonresponsive): 0 1b. Questions (0-answers two correctly; 1-answers one correctly; 2-answeres neither correctly): 0 1c. Commands (0-perform two tasks; 1-performs one task; 2-performs neither tasks): 0 2. Gaze (0-normal; 1-partial gaze palsy; 2-forced deviation): 0 3. Visual bell (0-no visual loss; 1-partial hemianopsia; 2-complete hemianopsia; 3-bilateral hemianopsia): 0 4. Facial palsy (0-normal; 1-minor palsy; 2-partial palsy; 3-complete paralysis): 0 5a. Motor left arm (0-normal; 1-drift before 10 sec; 2-falls before 10 sec; 3-no effort against gravity; 4-no movement): 0 5b. Motor right arm (0-normal; 1-drift before 10 sec; 2-falls before 10 sec; 3- no effort against gravity; 4-no movement): 0 6a. Motor left leg (0-normal; 1-drift before 5 sec; 2-falls before 5 sec; 3-no effort against gravity; 4-no movement): 0 6b. Motor right leg (0-normal; 1-drift before 5 sec; 2-falls before 5 sec; 3-no effort against gravity; 4-no movement): 0 7. Ataxia (0-absent; 1-one limb; 2-two limbs): 0 8. Sensory (0-absent; 1-mild/moderate; 2-severe/total loss): 0 9. Language (0-normal; 1-mild/moderate loss; 2-severe aphasia; 3-mute): 0 10. Dysarthria (0-normal; 1-mild/moderate; 2-severe): 0 11. Extinction (0-normal; 1-mild-one modality; 4-nrrdre-ufp modality):??0 ?? NIHSS Total: 0 Assessment/Plan Anibal is a 74 year old female with a significant past medical hx of perforated duodenal ulcer, hyperlipidemia, palpitations (carvedilol), self reported Left ear effusions follows with ENT presented [facility] complaints of acute onset of dizziness. Patient states around 0800 this morning she felt like dizzy and like she would pass out , also feeling unsteady feeling like she would fall over.She has since experienced associated nausea/vomiting since onset of dizziness. She mentioned that she has experienced similar dizziness sensation in the past (forcing her to crawl from one location to another for fear of falling over) but states these symptoms are worse. CT head nonacute, CTA head/neck without high grade stenosis or LVO. On exam, patient is without cerebellar findings (FTN and heel to villaseñor intact), demonstrates full strength, speech clear and vision intact, NIH 0. ?? DDX: Sudden dizziness/unsteadiness similar to her prior episodes likely peripheral etiology, will rule out posterior circulation infarct ?? Recommendations: - obtain MRI brain without contrast - Initiate Aspirin 81mg daily for now - continue home STATIN 40mg daily - Q4hr neuro checks - STAT head CT for acute worsening in neuro status - NPO until swallow eval passed - stroke education - tele - permissive HTN <220 ?? Neurology will continue to follow Discussed w/ Dr. Prakash and EKTA [place] Problem List/Past Medical History Ongoing CKD (chronic kidney disease) Procedure/Surgical History No qualifying data available. Home Medications Ascorbic Acid: 500 mg, By Mouth, Daily Calcium And Vitamin D Combination: See Instructions, By Mouth 2 times a day Multivitamin: By Mouth, Daily Shelby-3 Polyunsaturated Fatty Acids: By Mouth Omeprazole: 20 mg = 1 tablet, By Mouth, 2 times a day Sodium Chloride Nasal: 2 sprays, 4 times a day Allergies Avelox Flagyl Family History No family history recorded. * Lupe Layton MD: PERFORM Event Display: Consultation Note Authored Date: [id number] Attending Attestation:??I have discussed the case and its management with the advanced practitionerand agree with the findings and plan as documented in the advanced practitioner???s note. ?? Likely peripheral vertigo. Lower suspicion for acute stroke given isolated dizziness with no signs localizing to posterior territory. ??She is not a candidate for acute cerebral perfusion therapies. ?? Lupe Dahl M.D Attending-Vascular Neurology Department of Neurosciences Note * Rachel Genao RN: PERFORM Event Display: Discharge/Transfer Note Hospital Authored Date: [id number] Nursing Discharge Note Entered On: 07/08/2024 12:02 EST Performed On: 07/08/2024 12:01 EST by Rachel Genao RN Nursing Discharge Note 2 Discharge Time : 07/08/2024 11:53 EST Discharge Level of Care at Discharge : Home/Residential/Foster Care Patient Left Unit Via : Wheelchair Patient Accompanied Off Unit with : Significant other, Responsible adult DC Instructions Provided & Signed by Pt : Yes Patient Understands D/C Instructions : Yes Patient Instructions Discharge Signed : Yes Did Pt have Specialty Bed or Wound Vac : No Rachel Genao RN - 07/08/2024 12:01 EST * Monse Stephens MD: PERFORM Event Display: Discharge/Transfer Note Hospital Authored Date: [id number] Patient: ??ANIBAL FINCH ? Age:??74 Years?Sex:??Female?:??1950?? Patient Information Discharge Location: [facility] Primary Care Physician: Magdi MIKE , Carolina Carter Admit Date/Time: 07/07/2024 09:45 Discharge Disposition Discharge Disposition: ?? Discharge Diagnosis Dizziness (R42) _ Discharge Medications Ascorbic Acid (Vitamin C)??500 Milligram By Mouth Daily Atorvastatin (atorvastatin 40 mg oral tablet)??TAKE 1 TABLET BY MOUTH DAILY Calcium And Vitamin D Combination??See Instructions By Mouth 2 times a day Carvedilol (carvedilol 3.125 mg oral tablet)??3.125 Milligram 1 tablet By Mouth 2 times a day Meclizine (meclizine 12.5 mg oral tablet)??12.5 Milligram By Mouth 3 times a day as needed as needed for dizziness Miscellaneous Rx (PT eval and treat for vestibular rehab)??See Instructions PT eval and treat for vestibular rehab Multivitamin??By Mouth Daily Shelby-3 Polyunsaturated Fatty Acids??By Mouth Omeprazole (omeprazole 20 mg oral enteric coated capsule)??1 capsule 20 Milligram By Mouth Daily Sodium Chloride Nasal (Nasal Saline)??2 spray(s) 4 times a day ? Medications Started meclizine Medications Discontinued none Doses Changed none Allergies Allergies ?(Active and Proposed Allergies Only) Avelox? (Severity: Unknown severity, Onset: Unknown) Flagyl? (Severity: Unknown severity, Onset: Unknown) ? Hospital Course ??74-year-old female here with??dizziness/vertigo ?? Dizziness (R42):??From description seems peripheral vertigo.??CT head and CT head and neck without any acute finding. EKG without any change.??Troponin no acute Symptom have improved and now minimal. no focal deficit Ambulating with no issues MRI brain as below?? IMPRESSION: Partial empty sella, otherwise, normal MRI brain without contrast. Discussed with neurology about MRI finding.?? Neuro suggested no intervention. ??Patient was updated about finding of partial empty sella??and was advised to follow-up with primary care physician??todiscuss??further evaluation including MRI with contrast.?? Neurology does not feel that patient is having any symptoms from this finding. ??Patient was advised??to talk to PCP if she starts getting frequent headaches also. Tolerating diet.?? Vestibular rehab prescription was given to the patient. ??Patient was advised tofollow-up with ENT as outpatient No need for physical therapy as patient is improving Meclizine for symptomatic relief ? Today feelsmuch better. Having stable vitals. CTA BL, S1, S2 no GMR.Abd SOft, NT, BS+ve, AAO3. no pedal edema/focal deficit ?? Objective . Physical Exam Pending Results No Pending Results Patient Education Titles WebMD [employer] Patient Education - Risk Factors for Stroke?? Follow-Up Appointments Added Follow Up ?Time Frame ?Comments Please follow up with your ENT for hearing issues, ear fluid and dizziness?2 to 3 weeks Please mantain adequate hydration and change position slowly Carolina Fairbanks MD?1 to 2 weeks?for the finding of Partial empty sella but otherwise, normal MRI brain without contrast. Please discuss about further eval including need for repeat MRI brain with contrast Post Discharge Care Discharge ?07/08/24 10:37:00 EST ?Order Comment:?? Discharge Prescriptions ?Written, 07/08/24 10:37:00 EST ?Order Comment:?? Home Health Face to Face ^HomeHealthFTF 35??minutes spent on discharge * Rachel Genao RN: PERFORM Event Display: Patient Education/Instruction Authored Date: [id number] Inpatient Adult Discharge Instructions. [address] [address] Name: ANIBAL FINCH : 1950?? Visit: 07/07/2024 09:45?? Current Date: 07/08/2024 11:27 ?? Account: [id number]?? Inpatient Adult Discharge Instructions We would like to thank you for allowing us to assist you with your healthcare needs. The following includes patient education materials and information regarding your injury/illness. Our entire staffstrives to provide an excellent experience for our patients and their families. PLEASE ENSURE YOU FOLLOW-UP PER THE INSTRUCTIONS BELOW! ?? YOUR OPINION IS IMPORTANT TO US! Please complete the survey you may receive by mail or email. Your feedback will be used to make improvements to the healthcare experiences of our patients and their families. Surveys are administered by [employer] ?? If further treatment with your primary care physician or another doctor is recommended, it is important for you to keep the appointment. Call your primary care physician or return to the Emergency Department immediately if your condition worsens, fails to improve, or new symptoms develop. If you need to find a doctor, you can call [facility] for a referral at [phone] or toll free at [phone]) or log in to [email or web address] ?? [facility], in keeping with [facility] guidance, no longer requires face masks for staff, patientsor visitors in most situations. Similiar to time spent indoors at other locations, there is the chance that you were exposed to repiratory viruses during your time with us (such as flu or COVID-19). If you develop symptoms concerning for a viral respiratory infection, please seek testing (and treatment if indicated) from your medical provider or home test kit. ?? You can view and manage your care through the patient portal or by using a health care karolyn of your choosing. [employer] is a website that allows you to securely view your medical information including your hospital discharge summary, office visit summaries, medications and follow-up visits. You can also request appointments, renew medications, and request access to your medical information using a health care karolyn of your choosing, or just ask a question. You can enroll at [email or web address] or register during your next office visit. You have been discharged from [facility], Patient Care Unit: D3B??. If you have any questions regarding these instructions, including results of studies pending, afteryou leave, please call us and we will be happy to assist you 18/12. [facility] Your Care Team Attending Physician Monse Stephens MD?? Consulting Providers Monse Stephens MD?? Discharging Providers Monse Stephens MD Reason for Your Visit Dizziness?? Your Diagnosis Chronic GERD General medical History of palpitations Hyperlipidemia Hypertension Tests Performed Below is a partial list of the tests performed during your hospitalization. You may have had other tests and procedures not included in this list. Please discuss all test results with your provider. Calcium Ionized CBC w/ Differential Comprehensive Metabolic Panel GLUCOSE POC High??Sensitivity??Troponin T Hold Blue Top Tube Lipase Magnesium Level ProBNP TSH with T4 Reflex (Adults Only) Urinalysis w/hold for Urine Culture CT Angio Head Hyperacute Stroke CT Angio Neck Hyperacute Stroke CT Head-Hyper Acute Stroke MRI Brain W/O Contrast B Type Natriuretic Peptide (NT-proBNP) (ProBNP)?? CBC w/ Differential?? CT Angio Head Hyperacute Stroke?? CT Angio Neck Hyperacute Stroke?? CT Head-Hyper Acute Stroke?? Comprehensive Metabolic Panel?? Glucose POC?? High??Sensitivity??Troponin T?? Hold Blue Top Tube?? Ionized Calcium (Calcium Ionized)?? Lipase?? MRI Brain W/O Contrast?? Magnesium Level?? TSH with T4 Reflex (Adults Only)?? Urinalysis w/hold for Urine Culture?? Primary Care Provider Magdi MIKE , Carolina Carter? Advance Directive Health Care Proxy on File Yes - Health Care Proxy Discharge Vitals Temperature: 97.7 DegF Height: 153 cm Pulse Rate: 62 bpm ?? Respiratory Rate: 22 br/min ?? Systolic Blood Pressure: 114 mm Hg ?? Diastolic Blood Pressure: 71 mm Hg ?? Oxygen Saturation: 100 % ?? Studies Pending All studies ordered during this hospital stay have been completed unless listed below. Please discuss all pending results with your provider listed above in these instructions. ?? No incomplete studies found?? What to do next Instructions From Your Doctor ?? Orders? 07/08/24 10:37:00 EST?? Prescriptions??, ??07/08/24 10:37:00 EST?? You Need to Schedule the Following Appointments Follow Up with??Please follow up with your ENT for hearing issues, ear fluid and dizziness When:??Within 2 to 3 weeks Follow Up with??Please mantain adequate hydration and change position slowly Follow Up with??Carolina Fairbanks MD When:??Within 1 to 2 weeks Why: for the finding of Partial empty sella but otherwise, normal MRI brain without contrast. Please discuss about further eval including need for repeat MRI brain with contrast Where: [address] [place] [address]- Business (1) Discharge Medications ANIBAL FINCH :1950 Visit Date:07/07/2024 Medications: Please continue your medications until treatment is completed or stopped by your provider. Medications not listed below should be discontinued. Discuss any questions related to medications with your provider. What How Much When Instructions Next Dose New Meclizine (meclizine 12.5 mg oral tablet) 12.5 Milligram Oral 3 times a day as needed for as needed for dizziness Pickup at [facility] as needed New Miscellaneous Rx (PT eval and treat for vestibular rehab) See instructions PT eval and treat for vestibular rehab ?? Pickup at [facility] as ordered Changed Omeprazole (omeprazole 20 mg oral enteric coated capsule) 1 capsule Oral Daily 07/09/24 Unchanged Ascorbic Acid (Vitamin C) 500 Milligram Oral Daily 07/09/24 Unchanged Atorvastatin (atorvastatin 40 mg oral tablet) TAKE 1 TABLET BY MOUTH DAILY ?? 07/08/24 Unchanged Calcium And Vitamin D Combination See instructions By Mouth 2 times a day ?? 07/08/24 Unchanged Carvedilol (carvedilol 3.125 mg oral tablet) 1 tab(s) Oral Twice a day 07/08/24 Unchanged Multivitamin Oral Daily 07/09/24 Unchanged Shelby-3 Polyunsaturated Fatty Acids Oral 07/09/24 Unchanged Sodium Chloride Nasal (Nasal Saline) 2 spray(s) 4 times a day 07/08/24 Pharmacy Information [facility]: [address] [place] [address] [phone] Prescription Given During Visit Meclizine (meclizine 12.5 mg oral tablet) - 12.5 mg, By Mouth, 3 times a day, # 30 tablet, 0 Refills, [facility], [address] [place] [phone]?? Miscellaneous Rx (PT eval and treat for vestibular rehab) - , # 1 each, 0 Refills, PT eval and treat for vestibular rehab, [facility], [address] [place] [id number]?? Laboratory Results Below is a partial list of the most recent Laboratory test results done prior to this discharge. You may have had other tests and procedures not included in this list. Please discuss all test resultswith your provider. Est Creatinine Clearance - 45.63 mL/min (07/07/2024) Calcium Ionized (07/07/2024) ???Calcium, Ionized pH Corrected - 1.28 mmol/L CBC w/ Differential (07/07/2024) ???WBC - 4.2 k/mm3???RBC - 4.43 m/mm3???Hgb - 14.2 Gm/dL???Hct - 41.9 %???MCV - 94.6 femtoliters???MCH - 32.1 pg???MCHC - 33.9 Gm/dL???Platelet Count - 213 k/mm3???RDW-SD - 45.4 femtoliters???MPV - 10.3 femtoliters???Nucleated RBC (Automated) - 0.0 #/100 WBC'S???Abs. NRBC - 0.0 k/mm3???Abs. Neut - 3.0 k/mm3???Abs. Lymph - 0.9 k/mm3???Abs. Baxter - 0.3 k/mm3???Abs. Eo - 0.1 k/mm3???Abs. Baso - 0.0 k/mm3???Neut % - 71.1 %???Lymph % - 20.9 %???Baxter % - 6.4 %???Eos % - 1.2 %???Baso % - 0.2 %???Imm Gran - 0.2 %???Abs. Imm Gran - 0.0 k/mm3 Comprehensive Metabolic Panel (07/07/2024) ???Sodium - 140 mmol/L???Potassium - 3.9 mmol/L???Chloride - 104 mmol/L???Bicarbonate Level - 24 mmol/L???Anion Gap - 12 mmol/L???Glucose Level - 109 mg/dL???BUN - 12 mg/dL???Creatinine-Blood - 0.81 mg/dL???Estimated GFR Creatinine - 77 ML/MIN/1.73 M2???Calcium - 9.2 mg/dL???Protein, Total - 6.8 Gm/ dL???Albumin - 4.1 Gm/dL???AG Ratio - 1.5???Alkaline Phosphatase - 64 units/L???AST (SGOT) - 23 units/L???ALT (SGPT) - 15 units/L???Bilirubin, Total - 0.5 mg/dL GLUCOSE POC (07/07/2024) ???Glucose, POC - 93 mg/dL High??Sensitivity??Troponin T (07/07/2024) ???High Sensitivity Troponin (HSTnT) - 6 ng/L Hold Blue Top Tube (07/07/2024) ???Hold Blue Top - SPECIMEN DISCARDED AFTER 4 HOURS. Lipase (07/07/2024) ???Lipase, Serum/Plasma - 53 units/L Magnesium Level (07/07/2024) ???Magnesium - 2.0 mg/dL ProBNP (07/07/2024) ???Nt-Probnp - 129 pg/mL TSH with T4 Reflex (Adults Only) (07/07/2024) ???TSH - 1.64 uIU/mL Urinalysis w/hold for Urine Culture (07/07/2024) ???Appear/Color, Urine - LIGHT YELLOW???Specific [place], Urine - 1.037???pH, Urine - 8.5???Albumin, Urine - TRACE???Glucose, Urine - NEGATIVE???Ketones, Urine - NEGATIVE???Bilirubin, Urine - NEGATIVE???Hemoglobin, Urine - NEGATIVE???Nitrite, Urine - NEGATIVE???Leukocyte, Urine - NEGATIVE???Urobilin ogen - NORMAL? ?WBC's, Urine - <1 /HPF? ?RBC's, Urine - <1 /HPF? ?Mucus - SLIGHT? ?Hold UrineCulture - Testing available 48 hours from time of collection. You will be contacted within 72 hours with your results. Allergies (NKA means No Known Allergies) Avelox Flagyl Problems Active Problems??(1) CKD (chronic kidney disease)?? Education Materials Below is the list of Educational Leaflet Providered with your Discharge Instructions. Playground Sessions Ignite Patient Education - Risk Factors for Stroke?? Valuables and Belongings I fully understand and agree that [facility] accepts no responsibility for all my personal property including clothing, toilet articles, radios, jewelry, dentures, hearing aids, rings, money, or any other property that is in my possession or is brought to me after admission. I understand certain valuables may be placed in a hospital safe for a short period of time. I understand that the hospital is not liable for loss or damage due to accident, fire, or other natural occurrence while said property is in the safe. I accept full responsibility for any personal property that I keep with me, and will not hold the hospital responsible in case of loss or disappearance. I acknowledge that i have been encouraged to send valuables and belongings home. ?? Date for Pt to Sign Valuables/Belongings: 07/07/24 14:06:00 ?? Other Discharge Information ? Pulmonary Rehab Status?? Pulmonary Rehab Discharge Status?? Respiratory Rate: 22 br/min ? Common Emergency Awareness Tips IS IT A STROKE? Act FAST and Check for these signs: FACE Does the face look uneven? ARM Does one arm drift down? SPEECH Does their speech sound strange? TIME Call at any sign of stroke ?? Heart Attack Signs Chest discomfort: Most heart attacks involve discomfort in the center of the chest and lasts more than a few minutes, or goes away and comes back. It can feel like uncomfortable pressure, squeezing, fullness or pain. Discomfort in upper body: Symptoms can include pain or discomfort in one or both arms, back, neck, jaw or stomach. Shortness of breath: With or without discomfort. Other signs: Breaking out in a cold sweat, nausea, or lightheaded. Remember, MINUTES DO MATTER. If you experience any of these heart attack warning signs, call to get immediate medical attention! ?? Smoking can increase your chances of developing chronic health problems and can cause harmful effects to other family members in your house. If you smoke, you are strongly encouraged to quit. Please call [facility] Glasses Direct Link at [phone] or [phone] - neutrinity (1144) or log in to [email or web address] for referrals to smoking cessation programs. ?? 857 Suicide & Crisis Lifeline is available 18/12 if you or someone you know needs to find a reason to keep living. By calling 628 you'll be connected to a skilled, trained counselor at a crisis center in your area. INPATIENT DISCHARGE INSTRUCTIONS SIGNATURE PAGE PATRICKANIBAL WATKINS Location:[facility] Registration Date and Time:07/07/2024 09:45 EST Primary Care Physician: Carolina Fairbanks MD, Attending Physician: Liz Stephens MDmad, I ANIBAL FINCH, have received the above patient education materials/instructions and have verbalized understanding. If ambulance or transport services are being used I further acknowledge being givena choice of service. ?? If you need to contact me, please call me at this number: . Patient/Model Maker Plastic Name: Patient/Model Maker Plastic Signature: Relationship to Patient: Witness Name/Signature: Date: * Monse Stephens MD: PERFORM, SIGN, VERIFY Event Display: Patient Education Handout Authored Date: [id number] * Monse Stephens MD: PERFORM Event Display: Patient Education Leaflets Authored Date: [id number] Risk Factors for Stroke ?? 85072 Risk Factors for Stroke Certain health and lifestyle issues???called risk factors???increase your chances of having a stroke. The biggest risk factor for stroke is high blood pressure. But there are many other factors that also put you at risk. The list below can help you identify which risk factors you have. That way, you know where you need to make healthy changes. Talk with your healthcare provider about ways to helpreduce your risk factors. What are your risk factors? Risk factors are different for each person. Check off the factors that apply to you. Keep in mind that some factors, such as your age, can???t be changed. But others can be managed. Health risk factors You have high blood pressure. You???re overweight. You have unhealthy cholesterol levels. You have atrial fibrillation. You have atrial flutter. You???ve had a heart attack. You have narrowed arteries. You have diabetes. You are a man. You are an . You are an . You are an . Lifestyle risk factors You rarely exercise. You often eat salty, fried, or greasy foods. You smoke. You have more than 2 alcoholic drinks per day. Age and family history You???re over age 60. A parent, brother, or sister has had a stroke. ?? Metabolic syndrome Any of the factors above may put you at increased risk for stroke. But having 3 or more of 5 certain risk factors raises your risk more. This is a condition called metabolic syndrome. These factors include: ??? Too much weight around your waist (or apple shaped body) ??? High blood pressure ??? High bloodsugar ??? Low levels of HDL (good) cholesterol levels ??? High levels of triglycerides If you're a woman, your risks may also include polycystic ovary syndrome. If you have any of these risk factors, be sure to talk with your provider about how to decrease your risk of stroke and improve your overall health. ?? Last Reviewed Date: 2023 ?? [id number] [employer]. All rights reserved. This information is not intended as a substitute for professional medical care. Always follow your healthcare professional's instructions. ?? Patient Care team information Care Team Personnel Name: Magdi MIKE Carolina Position: Reference Physician Member Role: PCP [facility] [address] [place], [place] [address] Tele[facility]: Name: Dianna STEWART, Ej Position: S RN Member Role: Primary Care Nurse Care Team Related Persons Name: ANGELIQUE FINCH Name: STEFCOLTON Insurance Providers Guarantor name: ANIBAL FINCH Health Plan Information #: 1 Payer: MEDICARE HMO BLUE BC65 REPLC Member Number: [id number] Policy Number: NA Group Number: [id number] Health Plan Information #: 2 Payer: MEDICARE HMO BLUE BC65 REPLC Member Number: [id number] Policy Number: NA Group Number: [id number]
[2024-07-29 10:29] LABS: Alanine Aminotransferase 26 U/L (0-31); Anion Gap 10 (12-20); Aspartate Amino Transferase 33 U/L (5-31); Blood Urea Nitrogen 13 mg/dL (9-16); Calcium 9.3 mg/dL (8.4-10.2); Carbon Dioxide 29 mmol/L (22-29); Chloride 110 mmol/L (96-108); Cholesterol 207 mg/dL (<200); Estimated Glomerular Filt Rate > 60; Glucose Fasting 86 mg/dL (60-99); HDL Cholesterol 88 mg/dL (>40); LDL Cholesterol Calculated 109 mg/dL (<100); Potassium 5.3 mmol/L (3.3-5.1); Sodium 144 mmol/L (135-145); Triglycerides 51 mg/dL (<150)
[2024-07-29 10:36] LABS: Vitamin D 25-OH Total 75.3 ng/mL (>30)
== END 2024-07-29 08:08 | disposition home or self-care (01) ==
LOC: HO.HMGCLDS 08:07
PROVIDERS: PCP Internal Medicine; Visit Provider Internal Medicine
DX: I10 Essential (primary) hypertension (principal); E78.5 Hyperlipidemia, unspecified; M81.0 Age-related osteoporosis without current pathological fracture
CPT/HCPCS: 36415; 80048; 80061; 82306; 84450; 84460

== ENCOUNTER 2024-07-31 09:31 | Outpatient (REF) | payer MEDICARE, SELFPAY ==
--- OUTSIDE RECORDS SUMMARY | 2024-07-31 12:39 | XMS_ITS | Encounter Summary ---
Author Organization [facility] Address [address] [place] [address] Care Team Providers Care Dynamometer Repairer Name Role Phone Carolina Fairbanks MD Primary Care Provider Encounter Details Date Type Department Care Team (Latest Contact Info) Description 05/06/2024 Lab Requisition [facility] - Main Lab 299 [facility] [place] [phone] Jorge Luis Penaloza MD 299 [facility] [address] [place] [phone] Encounter for gynecological examination (general) (routine) without [...] Description 09/03/2024 12:30 PM EDT Hospital Encounter [facility] Endoscopy [address] [place] [phone] Preston Barnhart MD 229 [facility] [address] [place], [place] [phone] documented as of this encounter Procedures Procedure Name Priority Date/Time Associated Diagnosis Comments PAP SMEAR Routine 05/05/2024 12:00 AM EST Encounter for gynecological examination (general) (routine) without abnormal findings documented in this encounter Results * Pap smear (05/05/2024 12:00 AM EST) Interpretation Negative for intraepithelial lesion or malignancy 05/07/2024 6:[address] [facility] General Categorization Negative 05/07/2024 6:20 PM [facility] Other Findings Atrophy 05/07/2024 6:20 PM [facility] Specimen Adequacy Satisfactory for evaluation 05/07/2024 6:20 PM [facility] Disclaimer Note: The Pap test is a screening test which carries an inherent false negative rate. These test results should be correlated with the patient's clinical findings and history. This Pap test was processed using an automated screening system. Technical cytopathology services provided by [facility], at [address] [place] [address] (CLIA # [id number]/Gita Barragan MD, Automobile Mechanic Helper.) 05/07/2024 6:20 PM [facility] Console Pap Interpretation Reported 05/07/2024 6:20 PM [facility] Brushing/Spatula Cervix uteri structure / Unknown 05/05/2024 05/06/2024 8:41 AM EST us Jorge Luis Penaloza MD LAB CYTOLOGY ORDERABLES Final Result [facility] [address] [place] [address], documented in this encounter Visit Diagnoses Diagnosis Encounter for gynecological examination (general) (routine) without abnormal findings documented in this encounter Care Teams Dynamometer Repairer Relationship Specialty Start Date End Date Carolina Fairbanks MD PCP - General Internal Medicine 05/06/24 documented as of this encounter
--- OUTSIDE RECORDS SUMMARY | 2024-07-31 12:39 | XMS_ITS | Clinical Summary ---
Author Organization 299 [facility] Address [address] [place] [address] Phone Care Team Providers Care Police Or Patrol Park Officer Name Role Phone Carolina Pizano MD Primary Care Provider Encounters Date Type Department Care Team Description 06/27/2024 Telephone Gastroenterology - [address] [phone] Preston Barnhart MD 06/27/2024 Telephone Gastroenterology - [address] [phone] Geena Gutierrez MA 05/06/2024 Lab Requisition [facility] - Main Lab 299 [facility] [place] [phone] Nano Penaloza MD Encounter for gynecological examination [...] Upcoming Encounters Date Type Department Care Team ([facility] st Contact Info) Description 09/03/2024 12:30 PM EDT Hospital Encounter [facility] Endoscopy [address] [place] [phone] Preston Barnhart MD [address] [phone] Health Maintenance Due Date Last Done Comments [...] SCREENING DIGITAL Routine 03/19/2024 11:23 AM EDT [facility] DEXA AXIAL SKELETON Routine 02/02/2022 7:39 AM EDT Encounter for screening for osteoporosis from Last 3 Months or Most Recently Relevant to Health Maintenance Results * Pap smear (05/05/2024 12:00 AM EST) Interpretation Negative for intraepithelial lesion or malignancy 05/07/2024 6:[address] [facility] General Categorization Negative 05/07/2024 6:[address] [facility] Other Findings Atrophy 05/07/2024 6:20 PM [facility] Specimen Adequacy Satisfactory for evaluation 05/07/2024 6:[address] [facility] Disclaimer Note: The Pap test is a screening test which carries an inherent false negative rate. These test results should be correlated with the patient's clinical findings and history. This Pap test was processed using an automated screening system. Technical cytopathology services provided by [facility], at [address] [place] [address] (CLIA # [id number]/Gita Barragan MD, Incinerator Attendant.) 05/07/2024 6:20 PM [facility] Console Pap Interpretation Reported 05/07/2024 6:20 PM [facility] Brushing/Spatula Cervix uteri structure / Unknown 05/05/2024 05/06/2024 8:41 AM EST us Nano Penaloza MD LAB CYTOLOGY ORDERABLES Final Result [facility] [address] [place] [address], * [facility] SCREENING DIGITAL (03/19/2024 11:23 AM EDT) Anatomical Region Laterality Modality Mammography 03/19/2024 10:0 3 AM EDT Narrative 03/19/2024 11:23 AM EDT [facility] Diagnostic Imaging Department [address] [place] [phone] Patient: ??PATRICKJUNEANIBAL Ovalle ?/Age/Sex: 1950 - Unit#: ??[id number] ? Location/Status: ??SPDIMAM/REG CLI ? Mnemonic/Ordering Site: ??DIGSC/SPMAM Ordering Physician: ??CAROLINA PIZANO MD [facility] Screening Digital - 03/19/24 - 1024 Report Status:Signed EXAM: [facility] Screening Digital EXAM DATE AND TIME: 03/19/2024 10:25 AM HISTORY: ??Annual screening COMPARISON: ??02/07/2023, 02/01/2022, 01/28/2021, 01/26/2020 and 06/12/2018 TECHNIQUE: Bilateral digital breast tomosynthesis was performed in the CC and MLO projections. Computer aided detection with [employer] 7.2-H and [employer] 3D 3.1 was employed. TISSUE DENSITY: b. [...] Procedure Note Joann Randle MD - 03/25/2024 [facility] Diagnostic Imaging Department [address] [place] [address] Patient: PATRICKJUNEANIBAL /Age/Sex: 1950 - 73 - F Unit#: [id number] Location/Status: [facility] Mnemonic/Ordering Site: [facility] Ordering Physician: CAROLINA PIZANO MD [facility] Screening Digital - 03/19/24 - 1024 Report Status:Signed EXAM: [facility] Screening Digital EXAM DATE AND TIME: 03/19/2024 10:25 AM HISTORY: Annual screening COMPARISON: 02/07/2023, 02/01/2022, 01/28/2021, 01/26/2020 and 06/12/2018 TECHNIQUE: Bilateral digital [facility]. Computer aided detection with iCAD PowerLook 7.2-H and[employer] 3D 3.1 was employed. TISSUE DENSITY: b. [...] AM EDT Narrative 02/02/2022 7:39 AM EDT [facility] Diagnostic Imaging Department [address] [place], [place] [phone] Patient: ??ANIBAL ALFARO ?/Age/Sex: 1950 - Unit#: ??[id number] ? Location/Status: ??SPDIMAM/REG CLI ? Mnemonic/Ordering Site: [...] probability of hip fracture of 6.6%. Code 50813 Dictating Physician: ??NIKO HAWTHORNE MD Electronically Signed by: ??NIKO HAWTHORNE MD Dic Date/Time: ??02/02/22 0738 Sign date/Time: ??02/02/22 0739 Procedure Note Niko Hawthorne MD - 05/17/2022 [facility] Diagnostic Imaging Department [address] [place] [address] Patient: ANIBAL ALFARO /Age/Sex: 1950 - 71 - F Unit#: [id number] [facility] Mn[facility]onic/Ordering Site: MAMDEXAAX/SPMAM Ordering Physician: NANO PENALOZA MD [facility] Dexa Axial Skeleton - 02/01/22 - 4 [...] density of the femurs bilaterally is 0.745 gm/tl5ejkyx is 74% of that of young normals [...] probability of hip fracture of 6.6%. Code 34154 Dictating Physician: NIKO HAWTHORNE MD Electronically Signed by: NIKO HAWTHORNE MD Dic Date/Time: 02/02/22737 Sign date/Time: 02/02/22738 Nano Penaloza MD IMG BI PROCEDURES Final Result from Last 3 Months or Most Recently Relevant to Health Maintenance Insurance [employer] - [place]IC[place] ADVANTAGE Care Teams Police Or Patrol Park Officer Relationship Specialty Start Date End Date Carolina Pizano MD PCP - General Internal Medicine 05/06/24
[2024-07-31 13:47] LABS: Potassium, Serum 4.8 mmol/L (3.3-5.1)
== END 2024-07-31 09:32 | disposition home or self-care (01) ==
LOC: HO.HMGCLDS 09:31
PROVIDERS: PCP Internal Medicine; Visit Provider Internal Medicine
DX: R42 Dizziness and giddiness (principal); E87.5 Hyperkalemia; E78.5 Hyperlipidemia, unspecified; I10 Essential (primary) hypertension
CPT/HCPCS: 36415; 84132; 99212

== ENCOUNTER 2024-07-31 09:31 | Outpatient (AMB) | payer MEDICARE, SELFPAY ==
--- NOTE | 2024-07-31 09:59 | MHC.PC.OV ---
Vital Signs 07/31/24 10:08 Height 4 ft 11 in Weight 117 lb BMI 23.6 BP 120/82 Blood Pressure Location Lt brachial Position Sitting Respiration 15 Pulse 71 Pulse Source Pulse Oximeter Temp 98.3 F Temp Source Oral Pulse Oximetry (%) 96 Oxygen Delivery Method Room Air Intake Visit Reasons: Acute vertigo Intake Note: Pt is here today to f/u acute vertigo Allergies metronidazole [From FLAGYL] Adverse Reaction (Mild, Verified 07/31/24 10:16) ANOREXIA From Avelox Adverse Reaction (Mild, Uncoded 07/31/24 10:16) NASUEA,CONFUSION Medication List - Last Reconciled 07/31/24 by Carolina Fairbanks MD albuterol sulfate 90 mcg/actuation 2 puffs inhalation Q6H PRN antiarthritic combination no.2 (glucosamine-chondroitin) mg PO atorvastatin 40 mg PO DAILY calcium carbonate-vitamin D3 600 mg-12.5 mcg (500 unit) (Calcium with Vit D3) caps PO carvedilol 3.125 mg PO BID coenzyme Z16-aprchjk E 100-100 mg-unit caps PO .QOD fexofenadine 180 mg PO DAILY PRN fluticasone propionate 50 mcg/actuation (Flonase Allergy Relief) 1 spray intranasal DAILY ibuprofen 600 mg PO Q8H PRN 10 days lutein 20 mg PO DAILY meclizine 25 mg PO TID PRN omega 4-zes-ibs-fish-turmeric 417 mg-120 mg- 276 mg-600 mg 1 cap PO DAILY omeprazole 20 mg PO ONCE propylene glycol 0.6% (Systane Balance) 1 drp ophthalmic (eye) DAILY PRN wheat dextrin (Benefiber Clear Sugar Free(dextrin)) 1 packet PO DAILY Tobacco use date assessed: 07/31/24 Fall risk assessment: No Falls in past year Last assessed Fall Risk: 07/31/24 Dental Screening Dental Screen Date: 07/31/24 Did you have a dental visit in the last 12 months?: Yes Did you have a dental problem in the last 6 months where you did not have access to dental care?: No Was dental information given to patient?: Patient has dentist HPI Acute vertigo HPI Details 74-year-old lady with history of dyslipidemia, osteoporosis, macular degeneration of left eye, osteopenia, and hypertension, here today for follow-up after recent ER visit where she was seen for intermittent episodes of dizziness which started 2 days prior to her visit. She described it as a sensation of room spinning and was very unsteady on her feet, accompanied by some nausea and 1 episode of vomiting but no change in bowel habits. This was accompanied by a mild posterior headache. Patient denies any triggers for these. Of note prior to these episodes she was recently seen by her ENT and treated for an ear infection and was placed on a prednisone taper. She has been having decreased hearing in the left ear supposed to be getting an outpatient CT scan of head. CT of the brain was done at the ER as well as CT of head and neck which did not show any acute abnormality, no occlusion in the major arteries of her head and neck . MRI of the brain without contrast showed unremarkable findings except for partial empty sella. She was prescribed meclizine which she states has been helping. Labs done at the ER all came back with normal results. [facility] Medical History (Updated 06/18/24 @ 11:38 by Jaqueline Barry PA-C) Irritable larynx syndrome Osteoporosis Congestion of nasal sinus Post-nasal drainage Macular degeneration of left eye Chest pain Irritable bowel syndrome with constipation Skin lesion of back Diverticulitis Salivary duct obstruction GERD with stricture Esophagus, Sharma's Intermittent palpitations Osteopenia of hip PUD (peptic ulcer disease) Cemento-osseous dysplasia Anxiety Essential hypertension Dyslipidemia Surgical History Hx of colonoscopy Family History Father No problems noted. Mother No problems noted. Brother Hypertension Other Substance abuse Social History Housing: Condominium Alcohol intake: current Patient Tobacco Use Status: Former Tobacco user Tobacco use type: Cigarette e-Cigarette/Vaping Use: Never Used service: No Current occupational status: retired Cognitive needs: No Hearing needs: No Vision needs: Yes Questionnaire Thrive Questionnaire Date Thrive assessed: 03/25/24 I am a: Patient What is your living situation today?: I have a steady place to live Within the past 12 months, did the food you bought not last and you didn't have the money to get more?: Never true Within the past 12 months, did you worry whether your food would run out before you got money to buy more?: Never true Do you have trouble paying for medicines?: No Do you have trouble getting transportation to medical appointments?: No Do you have trouble paying your heating and electricity bill?: No Do you have trouble taking care of your child, family member or friend?: No Do you have trouble with day-to-day activities such as bathing, preparing meals, shopping, managing finances, etc.?: No Are you currently unemployed and looking for a job?: No Are you interested in more education?: No Please select the resources that you would like help with: None Currently or been in a relationship where the following occur: No concerns reported THRIVE Score: 0 AUDIT C Alcohol Use Questionnaire (AUDIT-C) 1. How often do you have a drink containing alcohol?: Monthly or less 2. How many drinks containing alcohol do you have on a typical day when you are drinking?: 1 or 2 3. How often do you have six or more drinks on one occasion?: Never Total Score: 1 RUBEN-7 AMB Questionnaire RUBEN-7 Date RUBEN - 7 assessed: 03/25/24 Feeling nervous, anxious, or on edge: 1 = Several days Not being able to stop or control worryin = Several days Worrying too much about different things: 1 = Several days Trouble relaxin = Several days Being so restless that it is hard to sit still: 1 = Several days Becoming easily annoyed or irritable: 1 = Several days Feeling afraid as if something awful might happen: 1 = Several days Total RUBEN-7 score (0-4 normal; 5-9 mild; 10-14 moderate; 15-21 severe): 7 Source: Developed by Drs. Servando Baca, Kylee Hicks, Bryan Choe and colleagues, with an educational tiesha from [employer]. Review of Systems Const Denies frequent falls and Denies headache(s) Eyes Denies change in vision ENT Denies headache(s) and Reports other (left ear feels blocked ) Card Reports no additional complaints and Denies syncope Resp Reports no additional complaints GI Reports no additional complaints Reports no additional complaints Musc Reports no additional complaints Neuro Reports no additional complaints, Denies syncope, Denies frequent falls and Denies headache(s) Psych Reports no additional complaints Endo Reports no additional complaints Tom/Lymph Reports no additional complaints Aller/Immun Reports no additional complaints Physical exam (Primary Care) Vital Signs: Last Vital Signs Temp 98.3 F 07/31/24 10:08 Pulse 71 07/31/24 10:08 Resp 15 07/31/24 10:08 BP 120/82 07/31/24 10:08 Pulse Ox 96 07/31/24 10:08 Oxygen Delivery Method Room Air 07/31/24 10:08 BMI result Body Mass Index 23.6 Tobacco/Smoking Status: Tobacco use Status Tobacco use date assessed 07/31/24 07/31/24 10:13 Patient Tobacco Use Status Former Tobacco user 07/31/24 10:00 Tobacco use type Cigarette 07/31/24 10:00 e-Cigarette/Vaping Use Never Used 07/31/24 10:00 Thrive Assessment: Date of Thrive Assessment Date Thrive assessed 03/25/24 07/31/24 10:00 Currently or been in a relationship where the following occur: No concerns reported Const General: no acute distress and alert Orientation/consciousness: patient oriented x3 HENMT Ears: external ears normal, TM's normal bilaterally and EAC's normal General nose exam: Normal external nose present Face and sinus: Yes face symmetric Mouth: Normal oral and palatal mucosa present, oropharynx normal and moist mucous membranes Neck Neck: Yes full ROM, Yes no lymphadenopathy and Yes supple Resp Auscultation: clear to auscultation bilaterally Cardio Other: S1-S2 present regular rate and rhythm GI Palpation (GI): Soft to palpation, nontender, no guarding and no masses Auscultation: normal bowel sounds Neuro General: patient oriented x3 Extrem General: Yes full ROM, Yes no joint enlargement and Yes normal gait Results Reviewed Results Reviewed: Name: Zamzam Alfaro Age/Sex: 74/F : 1950 Unit#: [id number] Attend Dr: Carolina Fairbanks MD Re07/29/24 Status: DEP [facility] Disch: SPEC : [id number] TIFFANIE: 07/29/24 STATUS: COMP REQ : [id number] RECD: 07/29/[address]: Carolina Fairbanks MD COMP: 07/29/241036 ENTERED: 07/29/[address]: ORDERED: Met Prof Fast, AST, ALT, Lipid Panel, Vitamin D 25-OH Test Result Flag Reference Sodium 144 135-145 mmol/L Potassium 5.3 # H 3.3-5.1 mmol/L CL 110 H 96-108 mmol/L CO2 29 22-29 mmol/L Gap 10 L 12-20 BUN 13 9-16 mg/dL Creat 0.83 0.5-1.4 mg/dL eGFR > 60 Chronic Kidney Disease: Estimated GFR < 60 mL/min/1.73m2 Severe Kidney Disease: Estimated GFR < 15 mL/min/1.73m2 FBS 86 60-99 mg/dL CA 9.3 8.4-10.2 mg/dL AST (GOT) 33 H 5-31 U/L ALT (GPT) 26 0-31 U/L Triglyceride 51 <150 mg/dL Desirable Triglyceride: less than 150 mg/dL Borderline High Triglyceride 150-199 mg/dL High Triglyceride: 200-499 mg/dL Very High Triglyceride: greater than or equal to 5OO mg/dL Cholesterol 207 H <200 mg/dL Desirable Cholesterol: less than 200 mg/dL Borderline High Cholesterol: 200-239 mg/dL High Cholesterol: greater than 239 mg/dL LDL Calculated 109 H <100 mg/dL Desirable LDL: less than 100 mg/dL Near Optimal/Above Optimal LDL: 110-129 mg/dL Borderline High LDL: 130-159 mg/dL High LDL: 160-189 mg/dL Very High LDL: greater than or equal to 190 mg/dL HDL 88 >40 mg/dL Desirable HDL: greater than 40 mg/dL Note: This HDL assay may give artificially low results in patients with liver disease. Vit D 25-OH Tot 75.3 >30 ng/mL Health Based Reference Values* < 20 ng/mL Deficient 20-30 ng/mL Insufficient > 30 ng/mL Sufficient Coding Level of Care Code Est Pt Level 4 (31695) Complex EM visit Add On G2211 Diagnoses Vertigo R42 Hyperkalemia E87.5 Dyslipidemia E78.5 Essential hypertension I10 Assessment & Plan Assessment & Plan (1) Vertigo: Code(s): R42 - Dizziness and giddiness Plan: Patient already was given an order to follow-up with Dr. Shelton, to schedule an appointment, and an order for vestibular rehab therapy was also given to patient, patient just has to schedule appointment. Feels better since taking meclizine. (2) Hyperkalemia: Code(s): E87.5 - Hyperkalemia Plan: Noted to have a elevated serum potassium last lab 07/29/2024, ordered a repeat serum potassium level to confirm (3) Dyslipidemia: Code(s): E78.5 - Hyperlipidemia, unspecified Category: Medical Plan: Currently on atorvastatin 40 mg daily (4) Essential hypertension: Code(s): I10 - Essential (primary) hypertension Category: Medical Plan: Blood pressure within normal limits power currently on carvedilol 3.125 mg taken twice a day Orders: Orders Potassium, Serum 07/31/24 E87.5 - Hyperkalemia
[2024-07-31 10:08] VITALS: BP 120/82; PULSE 71; RESP 15; TEMP 36.8; O2SAT 96; BMI 23.6
--- OUTSIDE RECORDS SUMMARY | 2024-07-31 10:46 | XMS_ITS | Encounter Summary ---
Author Organization [facility] Address [address] [place] [address] Care Team Providers Care Drupal Programmer Name Role Phone Carolina Fairbanks MD Primary Care Provider [phone] Encounter Details Date Type Department Care Team (Latest Contact Info) Description 05/06/2024 Lab Requisition [facility] - Main Lab [address] [facility] [employer] [place] [phone] Jorge Luis Penaloza MD [address] [facility] [address] [place] [phone] Encounter for gynecological examination (general) (routine) without [...] Contact Info) Description 09/03/2024 12:30 PM EDT Hospital Encounter [facility] Endoscopy [address] [place] [phone] Preston Barnhart MD [address] [facility] [address] [place], [place] [id number] documented as of this encounter Procedures Procedure Name Priority Date/Time Associated Diagnosis Comments PAP SMEAR Routine 05/05/2024 12:00 AM EST Encounter for gynecological examination (general) (routine) without abnormal findings documented in this encounter Results * Pap smear (05/05/2024 12:00 AM EST) Interpretation Negative for intraepithelial lesion or malignancy 05/07/2024 6:20 PM EST [facility] General Categorization Negative 05/07/2024 6:20 PM [facility] Other Findings Atrophy 05/07/2024 6:20 PM [facility] Specimen Adequacy Satisfactory for evaluation 05/07/2024 6:20 PM [facility] Disclaimer Note: The Pap test is a screening test which carries an inherent false negative rate. These test results should be correlated with the patient's clinical findings and history. This Pap test was processed using an automated screening system. Technical cytopathology services provided by [facility], at [address] [place] [address] (CLIA # [id number]/Gita Barragan MD, Breakdown Man.) 05/07/2024 6:20 PM [facility] Console Pap Interpretation Reported 05/07/2024 6:20 PM [facility] Brushing/Spatula Cervix uteri structure / Unknown 05/05/2024 05/06/2024 8:41 AM EST us Jorge Luis Penaloza MD LAB CYTOLOGY ORDERABLES Final Result [facility] [address] [place] [address], documented in this encounter Visit Diagnoses Diagnosis Encounter for gynecological examination (general) (routine) without abnormal findings documented in this encounter Care Teams Drupal Programmer Relationship Specialty Start Date End Date Carolina Fairbanks MD PCP - General Internal Medicine 05/06/24 documented as of this encounter
--- OUTSIDE RECORDS SUMMARY | 2024-07-31 10:46 | XMS_ITS | Data Portability ---
Author Organization [place] - [facility], Allergy Address [address] [place] [phone] Assessment Encounter Date Assessment Date Assessment LastModified by Organization Details LastModified Time 07/30/2024 07/30/2024 74-year-old female presents for evaluation of dizziness. On exam, bilateral tympanic membranes are intact with well aerated middle ear spaces. Audiometric testing demonstrated normal sloping to moderate high-frequency sensorineural hearing loss bilaterally. Patient has been referred to vestibular therapy and I recommended that she contact [facility] to proceed. She will follow-up yearly for audiometric testing, or sooner if symptoms persist or worsen. [email or web address] Not available 07/30/2024 16:38:13 Plan of Treatment Reminders Order Date Submit Date Provider Last Modified By Organization Details Last Modified Time Details Appointments None record ed. Lab None record ed. Referral None record ed. Procedures None record ed. Surgeries None record ed. Imaging None record ed. Medication Orders None record ed. Patient TargetsNo targets recorded. Patient InstructionsNo instructions recorded. Reason for Referral None Reported. Results Created Date Observation Date Name Description Value Unit Range Abnormal Flag Note LastModifiedBy Organization Detail LastModifiedTime 08/01/19 25 audio gram No observ ation record ed. BARCODE Not Available 2024 09:10:44 Result Notes None recorded. Problems Name Problem SNOMED Code Status Onset Date Resolution Date Notes Provider Name and Address Organization Details Recorded Time Sensorine ural hearing loss of bilateral ears 615839110 Active 2022 Sensorine ural hearing loss, bilateral ; Note: Date Diagnosed : 12/01/2022 3:46 PM (H90.3) Not Available [facility] 02:51:35 Dysphonia 04708644 Active 2022 Hoarsenes s; Note: Date Diagnosed : 01/17/2023 9:26 AM (R49.0) Not Available [facility] 4 02:51:29 Respirato ry finding 739535227 Active 2022 Feeling of foreign body in throat; Note: Date Diagnosed : 12/01/2022 3:55 PM (R09.89) Not Available [facility] 4 02:51:30 Cardiovas cular finding 089036752 Active 2022 Feeling of foreign body in throat; Note: Date Diagnosed : 12/01/2022 3:55 PM (R09.89) Not Available [facility] 4 02:51:30 Abnormal auditory perceptio n 97423109 Active 2022 Other abnormal auditory perceptio ns, bilateral ; Note: Date Diagnosed : 12/01/2022 3:55 PM (H93.293) Not Available [facility] 4 02:51:35 Pharyngea l dysphagia 13598599084 105 Active 2022 Dysphagia , pharyngea l phase; Note: Date Diagnosed : 11/09/2021 5:46 PM (R13.13) Not Available [facility] 4 02:51:35 Deviated nasal septum 690309469 Active 2022 Deviated nasal septum; Note: Date Diagnosed : 03/28/2023 10:37 AM (J34.2) Not Available [facility] 4 02:51:31 Disorder of nasal sinus 5302195 Active 2022 Other specified disorders of nose and nasal sinuses; Note: Date Diagnosed : 03/28/2023 10:37 AM (J34.89) Not Available [facility] 4 02:51:32 Disorder of the nose 74012727 Active 2022 Other specified disorders of nose and nasal sinuses; Note: Date Diagnosed : 03/28/2023 10:37 AM (J34.89) Not Available [facility] 4 02:51:32 Finding of resonance of voice 969507580 Active 2022 Other voice and resonance disorders ; Note: Date Diagnosed : 11/09/2021 5:46 PM (R49.8) Not Available [facility] 4 02:51:30 Dizziness and giddiness 006784954 Active 2024 EMILIA SETHI PA-C [address] [facility],[place] [address], [place], [phone] , [facility] - [facility] 16:35:58 Problem Notes None recorded. Procedures Surgical History Date Name Laterality Status Provider Name and Address Organization Details Recorded Time 07/30/2024 Comp Audio with Tymps (88949 & 59083) completed CHRISTIANO STEVENS [address] [facility] [address], [place], [phone], [facility] 07/30/2024 15:40:33 Imaging Results Imaging Date Name Status LastModified by Organiz ation Details LastModified Time 07/31/2024 audiogram completed [facility] Information no t available 07/31/2024 09:10:44 Procedure Notes None recorded. Medical Equipment None Reported. Allergies Allergen ID Allergen Name Allergen Category Reaction Reaction Severity Criticality Documentation Date Start Date Code Code System Note Provider Name and Address Organization Details Recorded Time 735948 Flagyl medicatio n Not available Not available Not available 10/09/202332518 6 RxNorm React ion: Gastr ointe tamica l sympt om; Not Available [facility] 4 01:20:34 905247 Avelox medicatio n dizziness Not available Not available 10/09/2023 48188 6 RxNorm React ion: Dizzi ness; Not Available [facility] 4 01:20:34 Medications Name Sig Start Date Stop Date Status Note LastModified by Organization Details LastModified Time atorvastatin 40 mg tablet TAKE 1 TABLET BY MOUTH DAILY active Not Available Not Available No t Available azithromycin 250 mg tablet TAKE 2 TABLETS BY MOUTH TODAY, THEN TAKE 1 TABLET DAILY FOR 4 DAYS DIRECTED active Not Available Not Available No t Available prednisone 20 mg tablet TAKE 2 TABLETS BY MOUTH EVERY DAY active Not Available Not Available No t Available meclizine 12.5 mg tablet TAKE ONE TABLET BY MOUTH THREE TIMES A DAY NEEDED FOR DIZZINESS active Not Available Not Available No t Available fexofenadine 180 mg tablet TAKE 1 TABLET BY MOUTH EVERY DAY NEEDED active Not Available Not Available No t Available carvedilol 3.125 mg tablet TAKE 1 TABLET BY MOUTH TWICE A DAY active Not Available Not Available No t Available meclizine 25 mg tablet TAKE 1 TABLET BY MOUTH THREE TIMES A DAY NEEDED FOR DIZZINESS active Not Available Not Available No t Available omeprazole 20 mg capsule,delay ed release TAKE 1 CAPSULE BY MOUTH TWICE A DAY active Not Available Not Available No t Available fluticasone propionate 50 mcg/actuation nasal spray,suspens ion SPRAY 2 SPRAYS NASALLY ONCE DAILY active Not Available Not Available N ot Available Gavilyte-C 240 gram-22.72 gram-6.72 gram-5.84 gram oral solution TAKE 4,000 ML BY MOUTH 1 TIME FOR 1 DOSE. DRINK 8 OZ EVERY 10-15 MINUTES UNTIL SOLUTION IS GONE active Not Available Not Available No t Available Vitals Date Recorded Body height Body mass index (BMI) Body weight Provider Name and Address Organization Details Last Updated DateTime 07/30/2024 152.4 cm 22.5 kg/m2 89988.12 g Lucille Vasquez [place] - [facility] 07/30/2024 15:02:24 Social History None recorded. Functional Status None recorded. Mental Status None recorded. Family History Nothing Reported. Medical History No medical history recorded. Gynecological HistoryNo gynecological history recorded. Obstetrics History GPAL:G 0 P 0 0 0 0 Past Encounters Encounter ID Performer Location Encounter Start Date Encounter Closed Date Diagnosis/Indication Diagnosis SNOMED-CT Code Diagnosis ICD10 Code Diagnosis Note [id number] FRANK COLES MD [facility] [address] [phone] 07/30/2024 14:48:42 07/30/2024 16:24:37 Sensorineural hearing loss of bilateral ears 132591579 H90.3 Audiologic al evaluation results: Right ear: {{Normal N ormal through 2 kHz Mild M oderate Mo derately-s evere Dennise re Profoun d Normal through 3 kHz#}} {{hearing hearing. s loping to a mild slopi ng to a moderate s loping to moderately severe* sl oping to severe slo ping to profound f lat high frequency low frequency mid frequency cookie bite esteves curve}} {{with sen sorineural hearing loss with* cond uctive hearing loss with mixed hearing loss with}} {{excellen t* good fa ir poor no measurable }} word recognitio n. Left ear: {{Normal* Normal through 2 kHz Mild M oderate Mo derately-s evere Dennise re Profoun d}} {{hearing hearing. s loping to a mild slopi ng to a moderate* sloping to moderately severe slo ping to severe slo ping to profound f lat high frequency low frequency mid frequency cookie bite esteves curve}} {{with sen sorineural hearing loss with* cond uctive hearing loss with mixed hearing loss with}} {{excellen t* good fa ir poor no measurable }} word recognitio n. Tympanomet ry: Right Ear:{{Type A* Type As Type Ad Type C Type C, shallow & rounded Ty pe B Type B with large volume Cou ld not maintain a hermetic seal}} Left Ear:{{Type A* Type As Type Ad Type C Type C, shallow & rounded Ty pe B Type B with large volume Cou ld not maintain a hermetic seal}} Dizziness and giddiness 077897241 R42 Health Concerns Section Related Observation LastModified by Organization Detai ls LastModified Time None Recorded Concern Status LastModified by Organization Details LastModified Time None Recorded Advance Directives Directive None Recorded Payers Encounter Date Sequence Insurance Name Policy Number Policy Ojeda Covered Member ID Ojeda Member ID Guarantor Name 07/30/2024 1 [facility] H[place]UE (MEDICARE REPLACEMENT HMO) [id number] Zamzam Alfaro [id number] Zamzam Alfaro Notes Date Note Type Note Provider Name and Address Organization Details Recorded Time 07/30/2024 text/html 74-year-old vielka kapoor presents for evaluation of dizziness. She reports about 1 month ago, she was put on prednisone for right ear effusion by urgent care. On 07/07, she went to [facility] for dizziness described as rocking on a boat not room spinning, nausea, and vomiting. She was evaluated by neurology who ruled out stroke. She had CT head, CTA head and neck, and MRI brain without contrast which were without pathology. Has been referred to vestibular therapy. Symptoms are improved. She takes fexofenadine and Flonase for seasonal allergies. Reports + environmental testing many years ago. Denies vertigo, otalgia, tinnitus, and otorrhea. History of BPPV in the past that resolved without vestibular therapy. FRANK COLES MD [address] [place] [address], [place], [phone], [facility] - [facility] 07/30/2024 17:03:04 OBGyn Episode No OBEpisode recorded.
--- OUTSIDE RECORDS SUMMARY | 2024-07-31 10:46 | XMS_ITS | Clinical Summary ---
Author Organization 299 [facility] Address [address] [place] [address] Phone Care Team Providers Care Grease Refining Supervisor Name Role Phone Carolina Pizano MD Primary Care Provider Encounters Date Type Department Care Team Description 06/27/2024 Telephone Gastroenterology - [address] [phone] Preston Barnhart MD 06/27/2024 Telephone Gastroenterology - [address] [phone] Geena Gutierrez MA 05/06/2024 Lab Requisition [facility] - Main Lab 299 [facility] [place] [phone] Nano Penaloza MD Encounter for gynecological examination [...] Upcoming Encounters Date Type Department Care Team ([facility] st Contact Info) Description 09/03/2024 12:30 PM EDT Hospital Encounter [facility] Endoscopy [address] [place] [phone] Preston Barnhart MD [address] [phone] Health Maintenance Due Date Last Done Comments [...] SCREENING DIGITAL Routine 03/19/2024 11:23 AM EDT [facility] DEXA AXIAL SKELETON Routine 02/02/2022 7:39 AM EDT Encounter for screening for osteoporosis from Last 3 Months or Most Recently Relevant to Health Maintenance Results * Pap smear (05/05/2024 12:00 AM EST) Interpretation Negative for intraepithelial lesion or malignancy 05/07/2024 6:20 PM EST [facility] General Categorization Negative 05/07/2024 6:20 PM EST [facility] Other Findings Atrophy 05/07/2024 6:20 PM [facility] Specimen Adequacy Satisfactory for evaluation 05/07/2024 6:20 PM EST [facility] Disclaimer Note: The Pap test is a screening test which carries an inherent false negative rate. These test results should be correlated with the patient's clinical findings and history. This Pap test was processed using an automated screening system. Technical cytopathology services provided by [facility], at [address] [place] [address] (CLIA # [id number]/Gita Barragan MD, Fish Cutter.) 05/07/2024 6:20 PM [facility] Console Pap Interpretation Reported 05/07/2024 6:20 PM [facility] Brushing/Spatula Cervix uteri structure / Unknown 05/05/2024 05/06/2024 8:41 AM EST us Nano Penaloza MD LAB CYTOLOGY ORDERABLES Final Result [facility] [address] [place] [address], * [facility] SCREENING DIGITAL (03/19/2024 11:23 AM EDT) Anatomical Region Laterality Modality Mammography 03/19/2024 10:0 3 AM EDT Narrative 03/19/2024 11:23 AM EDT [facility] Diagnostic Imaging Department [address] [place] [phone] Patient: ??PATRICKJUNEANIBAL Ovalle ?/Age/Sex: 1950 - Unit#: ??[id number] ? Location/Status: ??SPDIMAM/REG CLI ? Mnemonic/Ordering Site: ??DIGSC/SPMAM Ordering Physician: ??CAROLINA PIZANO MD [facility] Screening Digital - 03/19/24 - 1024 Report Status:Signed EXAM: [facility] Screening Digital EXAM DATE AND TIME: 03/19/2024 10:25 AM HISTORY: ??Annual screening COMPARISON: ??02/07/2023, 02/01/2022, 01/28/2021, 01/26/2020 and 06/12/2018 TECHNIQUE: Bilateral digital breast tomosynthesis was performed in the CC and MLO projections. Computer aided detection with [employer] 7.2-H and [employer] 3D 3.1 was employed. TISSUE DENSITY: b. [...] mammogram BILATERAL in 1 year. Dictating Physician: ??JONAN RANDLE MD Electronically Signed by: ??JOANN RANDLE MD Dic Date/Time: ??03/19/24 1116 Sign date/Time: ??03/19/24 1123 Procedure Note Joann Randle MD - 03/25/2024 [facility] Diagnostic Imaging Department [address] [place] [address] Patient: PATRICKJUNEANIBAL /Age/Sex: 1950 - 73 - F Unit#: [id number] Location/Status: [facility] Mnemonic/Ordering Site: [facility] Ordering Physician: CAROLINA PIZANO MD [facility] Screening Digital - 03/19/24 - 1024 Report Status:Signed EXAM: [facility] Screening Digital EXAM DATE AND TIME: 03/19/2024 10:25 AM HISTORY: Annual screening COMPARISON: 02/07/2023, 02/01/2022, 01/28/2021, 01/26/2020 and 06/12/2018 TECHNIQUE: Bilateral digital breast tom[facility]. Computer aided detection with iCAD PowerLook 7.2-H and[employer] 3D 3.1 was employed. TISSUE DENSITY: b. [...] AM EDT Narrative 02/02/2022 7:39 AM EDT [facility] Diagnostic Imaging Department [address] [place], [place] [phone] Patient: ??ANIBAL ALFARO ?/Age/Sex: 1950 - Unit#: ??[id number] ? Location/Status: ??SPDIMAM/REG CLI ? Mnemonic/Ordering Site: [...] probability of hip fracture of 6.6%. Code 65000 Dictating Physician: ??NIKO HAWTHORNE MD Electronically Signed by: ??NIKO HAWTHORNE MD Dic Date/Time: ??02/02/22 0738 Sign date/Time: ??02/02/22 0739 Procedure Note Niko Hawthorne MD - 05/17/2022 [facility] Diagnostic Imaging Department [address] [place] [address] Patient: ANIBAL ALFARO /Age/Sex: 1950 - 71 - F Unit#: [id number] [facility] Mnemonic/Ordering Site: MAMDEXAAX/SPMAM Ordering Physician: NANO PENALOZA MD [facility] Dexa Axial Skeleton - 02/01/22 - 4 [...] density of the femurs bilaterally is 0.745 gm/sf7ayoct is 74% of that of young normals [...] probability of hip fracture of 6.6%. Code 78630 Dictating Physician: NIKO HAWTHORNE MD Electronically Signed by: NIKO HAWTHORNE MD Dic Date/Time: 02/02/22737 Sign date/Time: 02/02/22738 Nano Penaloza MD IMG BI PROCEDURES Final Result from Last 3 Months or Most Recently Relevant to Health Maintenance Insurance [employer] [place] Care Teams Grease Refining Supervisor Relationship Specialty Start Date End Date Carolina Pizano MD PCP - General Internal Medicine 05/06/24
--- OUTSIDE RECORDS SUMMARY | 2024-07-31 10:46 | XMS_ITS | Continuity of Care Document ---
Author Organization MD - [facility], [facility] Address [address] [place] [address] Assessment Encounter Date Assessment Date Assessment LastModified by Organization Details LastModified Time 07/30/2024 07/30/2024 74-year-old female presents for evaluation of dizziness. On exam, bilateral tympanic membranes are intact with well aerated middle ear spaces. Audiometric testing demonstrated normal sloping to moderate high-frequency sensorineural hearing loss bilaterally. Patient has been referred to vestibular therapy and I recommended that she contact [facility] to proceed. She will follow-up yearly for audiometric testing, or sooner if symptoms persist or worsen. [email or web address] Not available 07/30/2024 16:38:13 Plan of Treatment [...] Sensorine ural hearing loss of bilateral ears 543177348 Active 2022 Sensorine ural hearing loss, bilateral ; Note: Date Diagnosed : 12/01/2022 3:46 PM (H90.3) Not Available [facility] 02:51:35 Dysphonia 03326179 Active 2022 Hoarsenes s; Note: Date Diagnosed : 01/17/2023 9:26 AM (R49.0) Not Available [facility] 4 02:51:29 Respirato ry finding 431184173 Active 2022 Feeling of foreign body in throat; Note: Date Diagnosed : 12/01/2022 3:55 PM (R09.89) Not Available [facility] 4 02:51:30 Cardiovas cular finding 064782447 Active 2022 Feeling of foreign body in throat; Note: Date Diagnosed : 12/01/2022 3:55 PM (R09.89) Not Available [facility] 4 02:51:30 Abnormal auditory perceptio n 24492862 Active 2022 Other abnormal auditory perceptio ns, bilateral ; Note: Date Diagnosed : 12/01/2022 3:55 PM (H93.293) Not Available [facility] 4 02:51:35 Pharyngea l dysphagia 22255470260 105 Active 2022 Dysphagia , pharyngea l phase; Note: Date Diagnosed : 11/09/2021 5:46 PM (R13.13) Not Available [facility] 4 02:51:35 Deviated nasal septum 622165939 Active 2022 Deviated nasal septum; Note: Date Diagnosed : 03/28/2023 10:37 AM (J34.2) Not Available [facility] 4 02:51:31 Disorder of nasal sinus 5564928 Active 2022 Other specified disorders of nose and nasal sinuses; Note: Date Diagnosed : 03/28/2023 10:37 AM (J34.89) Not Available [facility] 4 02:51:32 Disorder of the nose 99076083 Active 2022 Other specified disorders of nose and nasal sinuses; Note: Date Diagnosed : 03/28/2023 10:37 AM (J34.89) Not Available [facility] 4 02:51:32 Finding of resonance of voice 887086445 Active 2022 Other voice and resonance disorders ; Note: Date Diagnosed : 11/09/2021 5:46 PM (R49.8) Not Available [facility] 4 02:51:30 Dizziness and giddiness 424064912 Active 2024 EMILIA SETHI PA-C [address] [facility] [address], [place], [address] , [facility] - [facility] 5 16:35:58 Problem Notes None recorded. Procedures Surgical History Date Name Laterality Status Provider Name and Address Organization Details Recorded Time 07/30/2024 Comp Audio with Tymps (18759 & 56139) completed CHRISTIANO STEVENS [address] [facility],[place] [address], [place], [address], [facility] 07/30/2024 15:40:33 Imaging Results None recorded. Procedure Notes None recorded. Medical Equipment None Reported. Allergies Allergen ID Allergen Name Allergen Category Reaction Reaction Severity Criticality Documentation Date Start Date Code Code System Note Provider Name and Address Organization Details Recorded Time 920522 Flagyl medicatio n Not available Not available Not available 10/09/202347804 6 RxNorm React ion: Gastr ointe tamica l sympt om; Not Available [facility] 4 01:20:34 472973 Avelox medicatio n dizziness Not available Not available 10/09/2023 27749 6 RxNorm React ion: Dizzi ness; Not Available [facility] 4 01:20:34 Medications Name Sig Start Date [...] Updated DateTime 07/30/2024 152.4 cm 22.5 kg/m2 74431.12 g Lucille Vasquez [place] - [facility] 07/30/2024 15:02:24 Social History None recorded. Functional Status None recorded. Mental Status None recorded. Family History Nothing Reported. Medical History No medical history recorded. Gynecological HistoryNo gynecological history recorded. Obstetrics History GPAL:G 0 P 0 0 0 0 Past Encounters Encounter ID Performer Location Encounter Start Date Encounter Closed Date Diagnosis/Indication Diagnosis SNOMED-CT Code Diagnosis ICD10 Code Diagnosis Note [id number] FRANK COLES MD [facility] of [address] [phone] 07/30/2024 14:48:42 07/30/2024 16:24:37 Sensorineural hearing loss of bilateral ears 708156270 H90.3 Audiologic al evaluation results: Right ear: [...] maintain a hermetic seal}} Dizziness and giddiness 193036282 R42 Health Concerns Section Related Observation LastModified by Organization Detai ls LastModified Time None Recorded Concern Status LastModified by Organization Details LastModified Time None Recorded Payers Encounter Date Sequence Insurance Name Policy Number Policy Ojeda Covered Member ID Ojeda Member ID Guarantor Name 07/30/2024 1 [facility]: MEDICARE HMO BLUE (MEDICARE REPLACEMENT HMO) [id number] Zamzam Alfaro [id number] Zamzam Alfaro Notes Date Note Type Note Provider Name and Address Organization Details Recorded Time 07/30/2024 text/html 74-year-old vielka kapoor presents for evaluation of dizziness. She reports about 1 month ago, she was put on prednisone for right ear effusion by urgent care. On 07/07, she went to [facility] for dizziness described as rocking on [...] resolved without vestibular therapy. FRANK COLES MD [address] [place] [address], [address], [place] - [facility] 07/30/2024 17:03:04 OBGyn Episode No OBEpisode recorded.
== END 2024-07-31 10:34 | disposition home or self-care (01) ==
PROVIDERS: PCP Internal Medicine; Visit Provider Internal Medicine
DX: R42 Dizziness and giddiness (principal); E87.5 Hyperkalemia; E78.5 Hyperlipidemia, unspecified; I10 Essential (primary) hypertension

== ENCOUNTER 2024-08-18 14:29 | Outpatient (AMB) | payer MEDICARE, SELFPAY ==
[2024-08-18 14:54] VITALS: BP 120/64; PULSE 60; BMI 23.6
--- NOTE | 2024-08-18 14:54 | A.OFFVIS_ITS ---
Vital Signs 08/18/24 14:54 Height 4 ft 11 in Weight 116 lb 13.52 oz BMI 23.6 BP 120/64 Blood Pressure Location Lt brachial Position Sitting Pulse 60 Pulse Source Monitor Intake Visit Reasons: 1 yr f/up Intake Note: 1 yr f/up recetly in [facility] 07/07 Marketing Performance Analyst Required: No Accompanied by: Self / Same As Patient Allergies metronidazole [From FLAGYL] Adverse Reaction (Mild, Verified 07/31/24 10:16) ANOREXIA From Avelox Adverse Reaction (Mild, Uncoded 07/31/24 10:16) NASUEA,CONFUSION Medication List - Last Reconciled 08/18/24 by Stephen Lin MD albuterol sulfate 90 mcg/actuation 2 puffs inhalation Q6H PRN antiarthritic combination no.2 (glucosamine-chondroitin) mg PO atorvastatin 40 mg PO DAILY calcium carbonate-vitamin D3 600 mg-12.5 mcg (500 unit) (Calcium with Vit D3) caps PO carvedilol 3.125 mg PO BID coenzyme [id number]-rhjaztb E 100-100 mg-unit caps PO .QOD fexofenadine 180 mg PO DAILY PRN fluticasone propionate 50 mcg/actuation (Flonase Allergy Relief) 1 spray intranasal DAILY ibuprofen 600 mg PO Q8H PRN 10 days lutein 20 mg PO DAILY meclizine 25 mg PO TID PRN omega 8-eqr-msv-fish-turmeric 417 mg-120 mg- 276 mg-600 mg 1 cap PO DAILY omeprazole 20 mg PO ONCE propylene glycol 0.6% (Systane Balance) 1 drp ophthalmic (eye) DAILY PRN wheat dextrin (Benefiber Clear Sugar Free(dextrin)) 1 packet PO DAILY HPI Comments Details: 74-year-old female who is here for f/u. She has background history of palpitation and hypertension. In January 2020 she had a long episode of palpitations. She saw Dr. Kimble who was her primary care physician at that time and was referred for echocardiography and Holter monitoring. Holter monitor did not show any significant arrhythmia. Echocardiography was also unremarkable. In November 2020 she was in the emergency department with chest pain. She said she was overdoing house chores and exercising too much. She did a lot of weeding in the yard and then developed right sided severe CP at nighttime. She said it lasted for many hours and she went to the emergency department. She was observed there and discharged home underwent stress testing later which did not show any significant issues. She said the chest discomfort stayed there for few days and then improved. Since then she has not had any further pains. She returns for follow up today. She has no symptoms. She had some palpitations after she started drinking more decaf coffee. She since then has cut back. She gets SOB after climbing 3 flights of stairs at [employer] but does not stop after that. She is doing yoga, treadmill and stepper without symptoms. Overall she is quite stable. 08/13/23: She returns for follow-up. She continues to get some palpitations off and on. She is saying this happens after drinking decaf coffee. They do not last long and sometimes she gets shortness of breath. Her blood pressure is well controlled. 08/18/2024: She is here for follow-up. She had a 2 weeks Holter monitor which did not show any significant arrhythmia. Occasional supraventricular ectopy was noted. Taking medications regularly. Denying any significant symptoms on follow-up. [facility] Medical History (Updated 06/18/24 @ 11:38 by Jaqueline Barry PA-C) Irritable larynx syndrome Osteoporosis Congestion of nasal sinus Post-nasal drainage Macular degeneration of left eye Chest pain Irritable bowel syndrome with constipation Skin lesion of back Diverticulitis Salivary duct obstruction GERD with stricture Esophagus, Sharma's Intermittent palpitations Osteopenia of hip PUD (peptic ulcer disease) Cemento-osseous dysplasia Anxiety Essential hypertension Dyslipidemia Surgical History Hx of colonoscopy Family History Father No problems noted. Mother No problems noted. Brother Hypertension Other Substance abuse Social History Housing: Condominium Alcohol intake: current Patient Tobacco Use Status: Former Tobacco user Tobacco use type: Cigarette e-Cigarette/Vaping Use: Never Used service: No Current occupational status: retired Cognitive needs: No Hearing needs: No Vision needs: Yes Review of Systems Const Denies chills, Denies fatigue, Denies fever(s), Denies frequent falls, Denies weakness, Denies weight gain and Denies weight loss ENT Denies dizziness Card Denies chest pain, Denies leg edema, Denies lightheadedness, Denies palpitations, Denies dyspnea and Denies dyspnea on exertion Resp Denies cough, Denies dyspnea and Denies dyspnea on exertion GI Denies hematochezia Musc Denies abnormal gait, Denies muscle weakness, Denies numbness, Denies radiating pain into limb and Denies tingling Neuro Denies abnormal gait, Denies dizziness, Denies frequent falls, Denies numbness, Denies tingling and Denies weakness Endo Denies fatigue and Denies palpitations Physical Exam Vital Signs: Last Vital Signs Pulse 60 08/18/24 14:54 BP 120/64 08/18/24 14:54 BMI result Body Mass Index 23.6 GENERAL APPEARANCE: in no acute distress, well developed, well nourished. NECK/THYROID: no carotid bruit, no jugular venous distention. SKIN: no suspicious lesions, warm and dry. HEART: no murmurs, regular rate and rhythm, S1, S2 normal. LUNGS: clear to auscultation bilaterally. ABDOMEN: normal, bowel sounds present, soft, nontender, nondistended. EXTREMITIES: no clubbing, cyanosis, or edema. PERIPHERAL PULSES: equal. NEUROLOGIC: nonfocal, alert and oriented. Office Procedures EKG Details: Sinus rhythm 60 beats per minute, normal axis, normal ECG, QTC 380 milliseconds. [id number], Complete Assessment & Plan Assessment & Plan (1) Essential hypertension: Code(s): I10 - Essential (primary) hypertension Category: Medical (2) Dyslipidemia: Code(s): E78.5 - Hyperlipidemia, unspecified Category: Medical Plan Pleasant 74-year-old female who is here for follow-up. She has background history of hypertension, hyperlipidemia and palpitations. No significant arrhythmia noted on her previous monitoring. Blood pressure is well controlled. Last LDL cholesterol was 109 with total cholesterol 207. She is taking atorvastatin 40 mg. Target for her is less than 100. She can diet and exercise and we can repeat it in 6-8 weeks. If it does not come down then add 10 mg ezetimibe. Follow-up in 1 year with [facility]. Thank you for allowing me to participate in the care of your patient. Please feel free to contact me if you have any questions. Coding Level of Care Code Est Pt Level 3 (86496) Diagnoses Essential hypertension I10 Dyslipidemia E78.5 CPT Codes EKG - CPT: 30540-[id number], Complete ([id number])
== END 2024-08-18 15:37 | disposition home or self-care (01) ==
LOC: HO.HCS 14:30
PROVIDERS: PCP Internal Medicine; Visit Provider Internal Medicine Cardiovascular Disease
DX: I10 Essential (primary) hypertension (principal); E78.5 Hyperlipidemia, unspecified
CPT/HCPCS: 93010; 99213

== ENCOUNTER → 2024-08-18 14:29 | Outpatient (BNVA) | payer MEDICARE, SELFPAY | PROVIDERS: PCP Internal Medicine; Visit Provider Internal Medicine Cardiovascular Disease | DX: I10 Essential (primary) hypertension (principal); E78.5 Hyperlipidemia, unspecified | CPT/HCPCS: 93005; 99212 ==

== ENCOUNTER 2024-09-17 10:43 | Outpatient (AMB) | payer MEDICARE, SELFPAY ==
--- NOTE | 2024-09-17 11:08 | A.OFFPC_ITS ---
Vital Signs 09/17/24 11:09 Height 4 ft 11 in Weight 116 lb BMI 23.4 BP 112/70 Blood Pressure Location Lt brachial Position Sitting Respiration 16 Pulse 64 Pulse Source Pulse Oximeter Temp 98.1 F Temp Source Oral Pulse Oximetry (%) 96 Oxygen Delivery Method Room Air Intake Visit Reasons: PE Intake Note: Pt is here today for her PE: Last mammogram 03/19/24, colonoscopy 05/07/19 Allergies metronidazole [From FLAGYL] Adverse Reaction (Mild, Verified 09/17/24 11:28) ANOREXIA From Avelox Adverse Reaction (Mild, Uncoded 09/17/24 11:28) NASUEA,CONFUSION Medication List - Last Reconciled 09/17/24 by Carolina Fairbanks MD albuterol sulfate 90 mcg/actuation 2 puffs inhalation Q6H PRN antiarthritic combination no.2 (glucosamine-chondroitin) mg PO atorvastatin 40 mg PO DAILY calcium carbonate-vitamin D3 600 mg-12.5 mcg (500 unit) (Calcium with Vit D3) caps PO carvedilol 3.125 mg PO BID coenzyme V41-ibilauc E 100-100 mg-unit caps PO .QOD fexofenadine 180 mg PO DAILY PRN fluticasone propionate 50 mcg/actuation (Flonase Allergy Relief) 1 spray intranasal DAILY ibuprofen 600 mg PO Q8H PRN 10 days lutein 20 mg PO DAILY meclizine 25 mg PO TID PRN omega 5-knw-mxh-fish-turmeric 417 mg-120 mg- 276 mg-600 mg 1 cap PO DAILY omeprazole 20 mg PO ONCE propylene glycol 0.6% (Systane Balance) 1 drp ophthalmic (eye) DAILY PRN wheat dextrin (Benefiber Clear Sugar Free(dextrin)) 1 packet PO DAILY Tobacco use date assessed: 09/17/24 Fall risk assessment: No Falls in past year Last assessed Fall Risk: 09/17/24 Dental Screening Dental Screen Date: 09/17/24 Did you have a dental visit in the last 12 months?: Yes Did you have a dental problem in the last 6 months where you did not have access to dental care?: No Was dental information given to patient?: Patient has dentist HPI PE HPI Details 74-year-old lady here today for her phys ical exam. -Up-to-date with her screening colonosco py done by Dr. Barnhart 09/03/2024, repeat colonoscopy due again in 5 years due to positive family history of colon cancer -up-to-date with her screening mammogram , last done 03/19/2024 with benign findings. -[facility], per patient, ordered by Dr. Jorge Luis Penaloza, done last 2019 - Reports severe vertigo episodes, previ ously hospitalized in June for management. Currently experiencing persistent left ear discomfort, possible fluid retention, and uses Meclizine. - Pneumococcal, shingles, and flu vaccin ations updated. [facility] Medical History (Updated 09/22/24 @ 02:52 by Carolina Fairbanks MD) Irritable larynx syndrome Osteoporosis Congestion of nasal sinus Post-nasal drainage Macular degeneration of left eye Chest pain Irritable bowel syndrome with constipation Skin lesion of back Diverticulitis Salivary duct obstruction GERD with stricture Esophagus, Sharma's Intermittent palpitations Osteopenia of hip PUD (peptic ulcer disease) Cemento-osseous dysplasia Anxiety Essential hypertension Dyslipidemia Surgical History Hx of colonoscopy Family History Father No problems noted. Mother No problems noted. Brother Hypertension Other Substance abuse Social History Housing: Condominium Alcohol intake: current Patient Tobacco Use Status: Former Tobacco user Tobacco use type: Cigarette e-Cigarette/Vaping Use: Never Used service: No Current occupational status: retired Cognitive needs: No Hearing needs: No Vision needs: Yes Questionnaire PHQ-9 Over the last 2 weeks, how often have you been bothered by any of the following problems? 1. Little interest or pleasure in doing things: not at all 2. Feeling down, depressed, or hopeless: not at all 3. Trouble falling or staying asleep, or sleeping too much: several days 4. Feeling tired or having little energy: not at all 5. Poor appetite or overeating: not at all 6. Feeling bad about yourself - or that you are a failure or have let yourself or your family down: not at all 7. Trouble concentrating on things, such as reading the newspaper or watching television: not at all 8. Moving or speaking so slowly that other people could have noticed. Or the opposite - being so fidgety or restless that you have been moving around a lot more than usual: several days 9. Thoughts that you would be better off or of hurting yourself in some way: not at all Total score: 2 Depression Screening Interpretation: Negative Depression Screening Done: Yes 88403 - PHQ-9 Billing: Yes Source: Developed by Drs. Servando Baca, Bryan Andrade and colleagues, with an educational tiesha from [employer]. Thrive Questionnaire Date Thrive assessed: 07/24/24 I am a: Patient What is your living situation today?: I have a steady place to live Within the past 12 months, did the food you bought not last and you didn't have the money to get more?: Never true Within the past 12 months, did you worry whether your food would run out before you got money to buy more?: Never true Do you have trouble paying for medicines?: No Do you have trouble getting transportation to medical appointments?: No Do you have trouble paying your heating and electricity bill?: No Do you have trouble taking care of your child, family member or friend?: No Do you have trouble with day-to-day activities such as bathing, preparing meals, shopping, managing finances, etc.?: No Are you currently unemployed and looking for a job?: No Are you interested in more education?: No Please select the resources that you would like help with: None Currently or been in a relationship where the following occur: No concerns reported THRIVE Score: 0 RUBEN-7 AMB Questionnaire RUBEN-7 Date RUBEN - 7 assessed: 03/25/24 Source: Developed by Drs. Servando Baca, Bryan Andrade and colleagues, with an educational tiesha from [employer]. Review of Systems Const Denies chills, Denies fatigue, Denies fever(s) and Denies weakness Eyes Details: Sees Dr. Escobar Card Denies chest pain, Denies leg edema, Denies lightheadedness, Denies palpitations, Denies dyspnea and Denies dyspnea on exertion Resp Denies cough, Denies dyspnea and Denies dyspnea on exertion GI Denies hematochezia Reports no additional complaints Musc Denies abnormal gait, Denies muscle weakness, Denies numbness and Denies radiating pain into limb Skin/Breast Details: sees Dr Johnson yearly Neuro Denies abnormal gait, Denies numbness and Denies weakness Psych Reports no additional complaints Endo Denies fatigue and Denies palpitations Tom/Lymph Reports no additional complaints Aller/Immun Reports no additional complaints Physical exam (Primary Care) Vital Signs: Last Vital Signs Temp 98.1 F 09/17/24 11:09 Pulse 64 09/17/24 11:09 Resp 16 09/17/24 11:09 BP 112/70 09/17/24 11:09 Pulse Ox 96 09/17/24 11:09 Oxygen Delivery Method Room Air 09/17/24 11:09 BMI result Body Mass Index 23.4 Tobacco/Smoking Status: Tobacco use Status Tobacco use date assessed 09/17/24 09/17/24 11:14 Patient Tobacco Use Status Former Tobacco user 09/17/24 11:14 Tobacco use type Cigarette 09/17/24 11:14 e-Cigarette/Vaping Use Never Used 09/17/24 11:14 Depression Screening Interpretation: Negative Thrive Assessment: Date of Thrive Assessment Date Thrive assessed 07/24/24 09/17/24 11:14 Currently or been in a relationship where the following occur: No concerns reported Const General: no acute distress and alert Orientation/consciousness: patient oriented x3 HENMT Ears: external ears normal, TM's normal bilaterally and EAC's normal General nose exam: Normal external nose present Face and sinus: Yes face symmetric Mouth: Normal oral and palatal mucosa present and moist mucous membranes Neck Neck: Yes full ROM, Yes no lymphadenopathy and Yes supple Resp Auscultation: clear to auscultation bilaterally Cardio Other: S1-S2 present regular rate and rhythm GI Palpation (GI): Soft to palpation, nontender, no guarding and no masses Auscultation: normal bowel sounds General: Yes no CVA tenderness Back/Spine/Pelvis Back: no CVA tenderness and No back tenderness Skin General skin exam: no rashes or lesions noted Neuro General: patient oriented x3, gait normal, moves all extremities and no focal motor deficits Extrem General: Yes full ROM, Yes no joint enlargement and Yes normal gait Psych Appearance: grossly normal and well kempt Mental Status: mental status grossly normal Speech and movement: Normal speech and movement present Affect: normal affect Results Reviewed Results Reviewed: Laboratory Tests 07/31/24 10:38 Serum Potassium 4.8 Name: Zamzam Alfaro Age/Sex: 74/F : 1950 Unit#: [id number] Attend Dr: Carolina Fairbanks MD Re07/29/24 Status: DEP REF [id number] Disch: SPEC : [id number] TIFFANIE: 07/29/24 STATUS: COMP REQ : [id number] RECD: 07/29/[address]: Carolina Fairbanks MD COMP: 07/29/24 ENTERED: 07/29/[address] [facility] [address]: ORDERED: Met Prof Fast, AST, ALT, Lipid Panel, Vitamin D 25-OH Test Result Flag Reference Sodium 144 135-145 mmol/L Potassium 5.3 # H 3.3-5.1 mmol/L CL 110 H 96-108 mmol/L CO2 29 22-29 mmol/L Gap 10 L 12-20 BUN 13 9-16 mg/dL Creat 0.83 0.5-1.4 mg/dL eGFR > 60 Chronic Kidney Disease: Estimated GFR < 60 mL/min/1.73m2 Severe Kidney Disease: Estimated GFR < 15 mL/min/1.73m2 FBS 86 60-99 mg/dL CA 9.3 8.4-10.2 mg/dL AST (GOT) 33 H 5-31 U/L ALT (GPT) 26 0-31 U/L Triglyceride 51 <150 mg/dL Desirable Triglyceride: less than 150 mg/dL Borderline High Triglyceride 150-199 mg/dL High Triglyceride: 200-499 mg/dL Very High Triglyceride: greater than or equal to 5OO mg/dL Cholesterol 207 H <200 mg/dL Desirable Cholesterol: less than 200 mg/dL Borderline High Cholesterol: 200-239 mg/dL High Cholesterol: greater than 239 mg/dL LDL Calculated 109 H <100 mg/dL Desirable LDL: less than 100 mg/dL Near Optimal/Above Optimal LDL: 110-129 mg/dL Borderline High LDL: 130-159 mg/dL High LDL: 160-189 mg/dL Very High LDL: greater than or equal to 190 mg/dL HDL 88 >40 mg/dL Desirable HDL: greater than 40 mg/dL Note: This HDL assay may give artificially low results in patients with liver disease. 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 Continue with regular. dental visit every 6 months and regular eye exams, at least every 2 years. Take adequate calcium in diet and vitamin-D 3 at 2000 IU per cap once a day, in addition to weight-bearing exercises to help maintain good muscle tone and weight control. Instructed to do self-breast exam, and continue with yearly mammogram, up-to-date with her bone density scan. Up-to-date with her screening colonoscopy. Up-to-date with all her vaccines (2) Dyslipidemia: Code(s): E78.5 - Hyperlipidemia, unspecified Category: Medical Plan: Lipids are within normal limits, continued on atorvastatin 40 mg daily together with the [place] 3 fatty acid supplements daily (3) Essential hypertension: Code(s): I10 - Essential (primary) hypertension Category: Medical Plan: Blood pressure within normal limits, continued on carvedilol 3.125 mg 1 tablet twice a day (4) Osteoporosis: Comment: Last bone density scan showed unchanged osteoporosis in left femoral neck, [address] Penaloza Code(s): M81.0 - Age-related osteoporosis without current pathological fracture Category: Medical Plan: Latest bone density scan showed improvement in bone density, continue with calcium and vitamin-D 3 supplements (5) Macular degeneration of left eye: Comment: sees Dr Escobar Code(s): H35.30 - Unspecified macular degeneration Category: Medical Qualifiers: Macular degeneration type: unspecified type Qualified Code(s): H35.30 - Unspecified macular degeneration Plan: Followed by Dr. Escobar (6) Esophagus, Sharma's: Code(s): K22.70 - Sharma's esophagus without dysplasia Category: Medical Qualifiers: Sharma's esophagus type: without dysplasia Qualified Code(s): K22.70 - Sharma's esophagus without dysplasia Plan: Followed by GI clinic, continued on omeprazole 20 mg daily (7) Cemento-osseous dysplasia: Comment: sees Dr Melendez, oral surgeon Code(s): D16.4 - Benign neoplasm of bones of skull and face Category: Medical Plan: Followed by her oral surgeon Orders: Orders Basic Metabolic Panel Fasting 02/25/25 E78.5 - Hyperlipidemia, unspecified, F41.9 - Anxiety disorder, unspecified, I10 - Essential (primary) hypertension Lipid Panel 02/25/25 E78.5 - Hyperlipidemia, unspecified, F41.9 - Anxiety disorder, unspecified, I10 - Essential (primary) hypertension Aspartate Amino Transferase 02/25/25 E78.5 - Hyperlipidemia, unspecified, F41.9 - Anxiety disorder, unspecified, I10 - Essential (primary) hypertension Alanine Aminotransferase 02/25/25 E78.5 - Hyperlipidemia, unspecified, F41.9 - Anxiety disorder, unspecified, I10 - Essential (primary) hypertension
[2024-09-17 11:09] VITALS: BP 112/70; PULSE 64; RESP 16; TEMP 36.7; O2SAT 96; BMI 23.4
--- OUTSIDE RECORDS SUMMARY | 2024-09-17 12:48 | XMS_ITS | Clinical Summary ---
Author Organization LL [address] [place] [address] Address [address] [place] [address] Phone Care Team Providers Care Production Aide Name Role Phone Carolina Pizano MD Primary Care Provider Allergies Active Allergy Reactions Criticality Noted Date Comments Moxifloxacin GI intolerance 08/26/2024 Metronidazole GI intolerance 08/26/2024 Medications polyethylene glycol (Golytely) 236-22.74-6.74 -5.86 gram solution Take 4L by mouth once for one dose. May substitue any PEG. Starting at 6PM the night before your procedure drink 1 8oz glasses at your own pace until you complete half of the gallon. Finish 2nd half of the gallon 5 hours before your procedure. 4000 mL 5 Active bisacodyL (DULCOLAX) 5 mg EC tablet Take 2 tablets by mouth right before beginning bowel prep. See instructions provided by the office 2 tablet 5 Active fexofenadine (TANK) 180 mg tablet Take 1 tablet (180 mg total) by mouth 1 (one) time each day if needed. 5 Active atorvastatin (LIPITOR) 40 mg tablet Take 1 tablet (40 mg total) by mouth 1 (one) time each day. 5 Active omeprazole (PriLOSEC) [address] capsule Take 1 capsule (20 mg total) by mouth 1 (one) time each day. 5 Active carvediloL (COREG) 3.125 mg tablet Take 1 tablet (3.125 mg total) by mouth 2 (two) times a day. 5 Active fluticasone propionate (FLONASE) 50 mcg/actuation nasal spray SPRAY 2 SPRAYS NASALLY ONCE DAILY Active meclizine (ANTIVERT) 25 mg tablet Take 1 tablet (25 mg total) by mouth 3 (three) times a day if needed for dizziness. 5 Active meclizine (ANTIVERT) 12.5 mg tablet Take 1 tablet (12.5 mg total) by mouth 3 (three) times a day if needed for dizziness. 5 Active omega-3 fatty acids/fish oil (OMEGA 3 FISH OIL ORAL) Take by mouth 1 (one) time each day. Active vitamin iron fum-folic acid 27-0.8 mg per tablet Take 1 tablet by mouth 1 (one) time each day. Active coenzyme Q-10 (Co Q-10) 100 mg capsule Take 1 capsule (100 mg total) by mouth 1 (one) time each day. Active calcium carbonate/vitam in D3 (CALCIUM WITH VITAMIN D3 ORAL) Take by mouth 2 (two) times a day. Active glucosamine-cho ndroitin 500-400 mg tablet Take 1 tablet by mouth 2 (two) times a day. Active LUTEIN ORAL Take 20 mg by mouth 1 (one) time each day. Active propylene glycoL (Systane Complete) 0.6 % drops Administer into affected eye(s). Active LORazepam (ATIVAN) 0.5 mg tablet Take 1 tablet (0.5 mg total) by mouth every 6 (six) hours if needed for anxiety. Active wheat dextrin (Benefiber Clear SF, dextrin,) 3 gram/3.5 gram powder in packet Take by mouth at bedtime. 2 TABLESPOONS Active Encounters Date Type Department Care Team Description 09/03/2024 12:05 PM EDT Anesthesia Event [facility] Endoscopy [address] [place] [address] Rios Waddell MD Guerin, Erik R, JOSSELYN 09/03/2024 11:02 AM EDT - 09/03/2024 11:59 PM EDT Hospital Encounter [facility] Endoscopy [address] [place] [address] Preston Barnhart MD Guerin, Erik R, CRNA Chang, Daniel J, MD Personal history of other colon polyps; Family history of colonic polyps; Family history of colon cancer Discharge Disposition: Home or Self Care 06/27/2024 Telephone Gastroenterology - [address] [phone] Preston Barnhart MD 06/27/2024 Telephone Gastroenterology - [address] [phone] Geena Gutierrez MA from Last 3 Months Medical History Medical History Date Comments Hyperlipidemia Hypertension GERD (gastroesophageal reflux disease) Family History Medical History Relation Name Comments Colon cancer Father Colon cancer Paternal Grandfather Relation Name Status Comments Father Paternal Grandfather Social History Tobacco Use Types Packs/Day Years Used Date Smoking Tobacco: Former Cigarettes Smokeless Tobacco: Never Tobacco Cessation:Counseling Given: Not Answered Alcohol Use Standard Drinks/Week Comments Yes 1 (1 standard drink = 0.6 oz pur e alcohol) Interpersonal Safety Answer Date Record ed Physical Abuse 09/03/2024 Verbal Abuse 09/03/2024 Comments Unknown Sex and Gender Information Value Date Recorded Sex Assigned at Female 09/03/2024 11:01 AM EDT Legal Sex Female 4:14 PM EST Gender Identity Female 09/03/2024 11:01 AM EDT Sexual Orientation Straight 09/03/2024 11 :01 AM EDT Obstetrics History Last Filed Vital Signs Vital Sign Reading Time Taken Comments Blood Pressure 145/84 09/03/2024 12:40 PM EDT Pulse 53 09/03/2024 12:40 PM EDT Temperature 36.3 ??C (97.3 ??F) 09/03/2024 12:20 PM E DT Respiratory Rate 19 09/03/2024 12:40 PM EDT Oxygen Saturation 100% 09/03/2024 12:40 PM EDT Inhaled Oxygen Concentration - - Weight 52.2 kg (115 lb) 09/03/2024 11:44 AM EDT Height 152.4 cm (5') 09/03/2024 11:44 AM EDT Body Mass Index 22.46 09/03/2024 11:44 AM EDT Plan of Treatment Health Maintenance Due Date Last Done Comments Depression Screening 04/26/2022 Hepatitis C Screening 04/26/2022 Medicare Annual Wellness Visit 04/26/2022 Social Influencers of Health Screening 04/26/2022 COVID-19 Vaccine ( season) 2024 04/02/2024, 03/22/2023, 03/13/2022, Additional history exists Falls Risk Assessment 09/03/2025 09/03/2024 Breast Cancer Screening 03/19/2026 03/19/20 24, 02/07/2023, 02/01/2022, Additional history exists RSV Immunization Adult Patients (1 - 1-dose 75+ series) 2027 DTaP,Tdap,and Td Vaccines (2 - Td or Tdap) 08/21/2031 08/20/2021 Osteoporosis Screening (Bone Density Screening) 02/03/2032 02/02/2022 Colorectal Cancer Screening: Colonoscopy 09/03/2034 09/03/2024, 05/07/2019 Zoster Vaccines Completed 05/03/2020, 03/01/2020 Pneumococcal Vaccine: 50+ Years Completed 04/04/2022, 03/03/2019, 03/27/2018 Influenza Vaccine Completed 03/11/2024, , 02/07/2022, Additional history exists HIB Vaccines Aged Out No longer eligi [...] age to complete this topic Meningococcal B Vaccine Aged Out No l onger eligible based on patient's age to complete this topic RSV Immunization Patients Under 20 months Aged Out No longer eligible based on patient's age to complete this topic Varicella Vaccines Aged Out No longer eligible based on patient's age to complete this topic Procedures Procedure Name Priority Date/Time Associated Diagnosis Comments COLONOSCOPY Routine 09/03/2024 12:19 PM EDT Personal history of other colon polyps Family history of colonic polyps Family history of colon cancer EXTERNAL ENDOSCOPY REPORT Routine 08/29/2024 1:06 PM EDT DIEGO SCREENING DIGITAL Routine 03/19/2024 11:23 AM EDT DIEGO DEXA AXIAL SKELETON Routine 02/02/2022 7:39 AM EDT Encounter for screening for osteoporosis from Last 3 Months or Most Recently Relevant to Health Maintenance Results * COLONOSCOPY Anesthesia - MAC; [facility] ENDOSCOPY (09/03/2024 12:19 PM EDT) Anatomical Region Laterality Modality Endoscopy 09/03/2024 12:0 6 PM EDT Impressions 09/03/2024 12:21 PM EDT - The entire examined colon is normal on direct and ? retroflexion views. ? - No specimens collected. Recommendation: ?- Repeat colonoscopy in 5 years for surveillance. Narrative 09/03/2024 12:[address] [facility] GI Patient Name: Anibal Alfaro Procedure Date: 09/03/2024 12:06 PM Date of : 1950 Age: 74 Room: ROOM 15 Gender: Female Note Status: Finalized Attending MD: Preston Barnhart MD, Procedure Date No Time: 09/03/2024 Procedure: ? Colonoscopy Indications: ? High risk colon cancer surveillance: Personal history ? of colonic polyps Providers: ? Preston Barnhart MD Referring MD: ?Preston Barnhart MD Medicines: ? Propofol per Anesthesia Complications: ? No immediate complications. Estimated Blood Loss: ? Estimated blood loss: none. Procedure: ? Pre-Anesthesia Assessment: ? - ASA Grade Assessment: II - A patient with mild ? systemic disease. ? After I obtained informed consent, the scope was ? passed under direct vision. Throughout the procedure, ? the patient's blood pressure, pulse, and oxygen ? saturations were monitored continuously.The ? Colonoscope was introduced through the anus and ? advanced to the cecum, identified by appendiceal ? orifice and ileocecal valve. The colonoscopy was ? performed without difficulty. The patient tolerated ? the procedure well. The quality of the bowel ? preparation was good. Findings: ?The perianal and digital rectal examinations were ? normal. ? The entire examined colon appeared normal on direct ? and retroflexion views. Procedure Code(s): ? --- Professional --- ? G0105, Colorectal cancer screening; colonoscopy on ? individual at high risk Diagnosis Code(s): ? --- Professional --- ? Z86.010, Personal history of colonic polyps CPT copyright 2020 [employer]. All rights reserved. The codes documented in this report are preliminary and upon speech coach review may be revised to meet current compliance requirements. Preston Barnhart MD 09/03/2024 12:21:14 PM This report has been signed electronically.Preston Barnhart MD Number of Addenda: 0 Note Initiated On: 09/03/2024 12:06 PM Scope In: Scope Out: ? Endoscopy Department at [facility] - [address] [place] [address], ? [place] [address] Procedure Note Preston Barnhart MD - 09/03/2024 [facility] GI Patient Name: Anibal Alfaro Procedure Date: 09/03/2024 12:06 PM Date of : 1950 Age: 74 Room: ROOM 15 Gender: Female Note Status: Finalized Attending MD: Preston Barnhart MD, Procedure Date No Time: 09/03/2024 Procedure: Colonoscopy Indications: High risk colon cancer surveillance: Personalhistory of colonic polyps Providers: Preston Barnhart MD Referring MD: Preston Barnhart MD Medicines: Propofol per Anesthesia Complications: No immediate complications. Estimated Blood Loss: Estimated blood loss: none. Procedure: Pre-Anesthesia Assessment: - ASA Grade Assessment: II - A patient with mild systemic disease. After I obtained informed consent, the scope was passed under direct vision. Throughout theprocedure, the patient's blood pressure, pulse, and oxygen saturations were monitored continuously.The Colonoscope was introduced through the anus and advanced to the cecum, identified by appendiceal orifice and ileocecal valve. The colonoscopy was performed without difficulty. The patient tolerated the procedure well. The quality of the bowel preparation was good. Findings: The perianal and digital rectal examinations were normal. The entire examined colon appeared normal on direct and retroflexion views. Procedure Code(s): --- Professional --- G0105, Colorectal cancer screening; colonoscopy on individual at high risk Diagnosis Code(s): --- Professional --- Z86.010, Personal history of colonic polyps CPT copyright 2020 [employer]. All rights reserved. The codes documented in this report are preliminary and upon speech coach reviewmay be revised to meet current compliance requirements. Preston Barnhart MD 09/03/2024 12:21:14 PM This report has been signed electronically.Preston Barnhart MD Number of Addenda: 0 Note Initiated On: 09/03/2024 12:06 PM Scope In: Scope Out: Endoscopy Department at [facility] - [address] [place] [phone] IMPRESSION: - The entire examined colon is normal on direct and retroflexion views. - No specimens collected. Recommendation: - Repeat colonoscopy in 5 years for surveillance. Preston Barnhart MD GI~PROCEDURE ORDERABLES Fin al Result * External Endoscopy (08/29/2024 1:06 PM EDT) Anatomical Region Laterality Modality Endoscopy us Historical Provider GI~PROCEDURE ORDERABLES F inal Result * DIEGO SCREENING DIGITAL (03/19/2024 11:23 AM EDT) Anatomical Region Laterality Modality Mammography 03/19/2024 10:0 3 AM EDT Narrative 03/19/2024 11:23 AM EDT [facility] Diagnostic Imaging Department [address] [place] [id number] Patient: ??ANIBAL ALFARO ?/Age/Sex: 1950 - 73 - F Unit#: ??[id number] ? Location/Status: ??SPDIMAM/REG CLI ? Mnemonic/Ordering Site: ??DIGSC/SPMAM Ordering Physician: ??CAROLINA PIZANO MD [facility] Screening Digital - 03/19/24 - 1024 Report Status:Signed EXAM: [facility] Screening Digital EXAM DATE AND TIME: 03/19/2024 10:25 AM HISTORY: ??Annual screening COMPARISON: ??02/07/2023, 02/01/2022, 01/28/2021, 01/26/2020 and 06/12/2018 TECHNIQUE: Bilateral digital breast tomosynthesis was performed in the CC and MLO projections. Computer aided detection with Nan[employer] 7.2-H and [employer] 3D 3.1 was employed. TISSUE DENSITY: b. [...] Procedure Note Joann Randle MD - 03/25/2024 [facility] Diagnostic Imaging Department [address] [place] [id number] Patient: STEFANIBAL Ovalle D.O.B./Age/Sex: 1950 - 73 - F Unit#: [id number] Location/Status: [facility] CLI Mnemonic/Ordering Site: [facility] Ordering Physician: CAROLINA PIZANO MD [facility] Screening Digital - 03/19/24 - 1023 Report Status:Signed EXAM: [facility] Screening Digital EXAM DATE AND TIME: 03/19/2024 10:25 AM HISTORY: Annual screening COMPARISON: 02/07/2023, 02/01/2022, 01/28/2021, 01/26/2020 and 06/12/2018 TECHNIQUE: Bilateral digital breast tomosynthesis was performed in the CCand MLO projections. Computer aided detection with Nanosys 7.2-H and[employer] 3D 3.1 was employed. TISSUE DENSITY: b. [...] AM EDT Narrative 02/02/2022 7:39 AM EDT [facility] Diagnostic Imaging Department [address] [place] [address] Patient: ??ANIBAL ALFARO ?/Age/Sex: 1950 - 71 - F Unit#: ??[id number] ? Location/Status: ??SPDIMAM/REG CLI ? Mnemonic/Ordering Site: ??MAMDEXAAX/SPMAM Ordering Physician: ??NANO PENALOZA MD Diego Dexa Axial Skeleton - 02/01/22 - 1113 HISTORY: ??The patient is a 71-year-old postmenopausal [...] probability of hip fracture of 6.6%. Code 77901 Dictating Physician: ??NIKO HAWTHORNE MD Electronically Signed by: ??NIKO HAWTHORNE MD Dic Date/Time: ??02/02/22 0738 Sign date/Time: ??02/02/22 0739 Procedure Note Niko Hawthorne MD - 05/17/2022 [facility] Diagnostic Imaging Department [address] [place] [address] Patient: ANIBAL ALFARO Yamile Seth/Age/Sex: 1950 - 71 - F Unit#: [id number] Location/Status: SPDIMAM/REG CLI Mnemonic/Ordering Site: MAMDEXAAX/SPMAM Ordering Physician: NANO PENALOZA [...] density of the femurs bilaterally is 0.745 gm/qv3qfrhe is 74% of that of young normals [...] probability of hip fracture of 6.6%. Code 43704 Dictating Physician: NIKO HAWTHORNE MD Electronically Signed by: NIKO HAWTHORNE MD Dic Date/Time: 02/02/22737 Sign date/Time: 02/02/22738 Nano Penaloza MD IMG BI PROCEDURES Final Result from Last 3 Months or Most Recently Relevant to Health Maintenance Insurance [employer] [employer] MEDICARE ADVANTAGE Care Teams Production Aide Relationship Specialty Start Date End Date Carolina Pizano MD [address] [place] [address] PCP - General Internal Medicine 09/02/24
--- OUTSIDE RECORDS SUMMARY | 2024-09-17 12:48 | XMS_ITS | Data Portability ---
Author Organization [place] - [facility], Allergy Address [address] [place] [phone] Assessment Encounter Date Assessment Date Assessment LastModified [...] or sooner if symptoms persist or worsen. [email or web address] Not available 07/30/2024 16:38:13 Plan of Treatment [...] Sensorine ural hearing loss of bilateral ears 676275970 Active 2022 Sensorine ural hearing loss, bilateral ; Note: Date Diagnosed : 12/01/2022 3:46 PM (H90.3) Not Available [facility] 4 02:51:35 Dysphonia 55230933 Active 2022 Hoarsenes s; Note: Date Diagnosed : 01/17/2023 9:26 AM (R49.0) Not Available [facility] 4 02:51:29 Respirato ry finding 256700643 Active 2022 Feeling of foreign body in throat; Note: Date Diagnosed : 12/01/2022 3:55 PM (R09.89) Not Available [facility] 4 02:51:30 Cardiovas cular finding 112066734 Active 2022 Feeling of foreign body in throat; Note: Date Diagnosed : 12/01/2022 3:55 PM (R09.89) Not Available [facility] 4 02:51:30 Abnormal auditory perceptio n 14951390 Active 2022 Other abnormal auditory perceptio ns, bilateral ; Note: Date Diagnosed : 12/01/2022 3:55 PM (H93.293) Not Available [facility] 4 02:51:35 Pharyngea l dysphagia 23020975207 105 Active 2022 Dysphagia , pharyngea l phase; Note: Date Diagnosed : 11/09/2021 5:46 PM (R13.13) Not Available [facility] 4 02:51:35 Deviated nasal septum 135586024 Active 2022 Deviated nasal septum; Note: Date Diagnosed : 03/28/2023 10:37 AM (J34.2) Not Available [facility] 4 02:51:31 Disorder of nasal sinus 0771883 Active 2022 Other specified disorders of nose and nasal sinuses; Note: Date Diagnosed : 03/28/2023 10:37 AM (J34.89) Not Available [facility] 4 02:51:32 Disorder of the nose 18985554 Active 2022 Other specified disorders of nose and nasal sinuses; Note: Date Diagnosed : 03/28/2023 10:37 AM (J34.89) Not Available [facility] 4 02:51:32 Finding of resonance of voice 015900349 Active 2022 Other voice and resonance disorders ; Note: Date Diagnosed : 11/09/2021 5:46 PM (R49.8) Not Available [facility] 4 02:51:30 Dizziness and giddiness 645384807 Active 2024 EMILIA SETHI PA-C [address] [facility],[place] [address], [place], [phone] , [facility] 5 16:35:58 Problem Notes None recorded. Procedures Surgical History Date Name Laterality Status Provider Name and Address Organization Details Recorded Time 07/30/2024 Comp Audio with Tymps (66445 & 99239) completed CHRISTIANO STEVENS [address] [facility],[place] [address], [place], [phone], [facility] 07/30/2024 15:40:33 Imaging Results Imaging Date Name Status LastModified by Organiz ation Details LastModified Time 07/31/2024 audiogram completed [facility] Information no t available 07/31/2024 09:10:44 Procedure Notes None recorded. Medical Equipment None Reported. Allergies Allergen ID Allergen Name Allergen Category Reaction Reaction Severity Criticality Documentation Date Start Date Code Code System Note Provider Name and Address Organization Details Recorded Time 878774 Flagyl medicatio n Not available Not available Not available 10/09/202308271 6 RxNorm React ion: Gastr ointe tamica l sympt om; Not Available [facility] 4 01:20:34 239968 Avelox medicatio n dizziness Not available Not available 10/09/2023 46137 6 RxNorm React ion: Dizzi ness; Not Available [facility] 4 01:20:34 Medications Name Sig Start Date [...] Updated DateTime 07/30/2024 152.4 cm 22.5 kg/m2 09521.12 g Lucille Vasquez [place] - [facility] 07/30/2024 15:02:24 Social History None recorded. Functional Status None recorded. Mental Status None recorded. Family History Nothing Reported. Medical History No medical history recorded. Gynecological HistoryNo gynecological history recorded. Obstetrics History GPAL:G 0 P 0 0 0 0 Past Encounters Encounter ID Performer Location Encounter Start Date Encounter Closed Date Diagnosis/Indication Diagnosis SNOMED-CT Code Diagnosis ICD10 Code Diagnosis Note [id number] FRANK COLES MD [facility] [address] [phone] 07/30/2024 14:48:42 07/30/2024 16:24:37 Sensorineural hearing loss of bilateral ears 814564944 H90.3 Audiologic al evaluation results: Right ear: [...] maintain a hermetic seal}} Dizziness and giddiness 025994106 R42 Health Concerns Section Related Observation LastModified by Organization Detai ls LastModified Time None Recorded Concern Status LastModified by Organization Details LastModified Time None Recorded Advance Directives Directive None Recorded Payers Encounter Date Sequence Insurance Name Policy Number Policy Ojeda Covered Member ID Ojeda Member ID Guarantor Name 07/30/2024 1 [facility]: MEDICARE HMO BLUE (MEDICARE REPLACEMENT HMO) [id number] Zamzam Alfaro [id number] Zamzam Alfaro Notes Date Note Type Note Provider Name and Address Organization Details Recorded Time 07/30/2024 text/html 74-year-old vielka kapoor presents for evaluation of dizziness. She reports about 1 month ago, she was put on prednisone for right ear effusion by urgent care. On 07/07, she went to [facility] for dizziness described as rocking on [...] resolved without vestibular therapy. FRANK COLES MD [address] [place] [address], [place], [address], [facility] - [facility] 07/30/2024 17:03:04 OBGyn Episode No OBEpisode recorded.
--- OUTSIDE RECORDS SUMMARY | 2024-09-17 12:48 | XMS_ITS | Encounter Summary ---
Author Organization [facility] Address [address] [place] [address] Care Team Providers Care Formula Maker Name Role Phone Carolina Fairbanks MD Primary Care Provider Encounter Details Date Type Department Care Team (Latest Contact Info) Description 05/06/[address] [facility] - Main Lab [address] [facility] [place] [phone] Jorge Luis Penaloza MD [address] [phone] Encounter for gynecological examination (general) (routine) without abnormal findings Social History Tobacco Use Types Packs/Day Years Used Date Smoking Tobacco: Never Assessed Comments Unknown Sex and Gender Information Value Date Recorded Sex Assigned at Female 09/03/2024 11:01 AM EDT Legal Sex Female 4:14 PM EST Gender Identity Female 09/03/2024 11:01 AM EDT Sexual Orientation Straight 09/03/2024 11 :01 AM EDT documented as of this encounter Plan of Treatment Not on file documented as of this encounter Procedures Procedure Name Priority Date/Time Associated Diagnosis Comments PAP SMEAR Routine 05/05/2024 12:00 AM EST Encounter for gynecological examination (general) (routine) without abnormal findings documented in this encounter Results * Pap smear (05/05/2024 12:00 AM EST) Interpretation Negative for intraepithelial lesion or malignancy 05/07/2024 6:20 PM [facility] General Categorization Negative 05/07/2024 6:20 PM [facility] Other Findings Atrophy 05/07/2024 6:20 PM [facility] Specimen Adequacy Satisfactory for evaluation 05/07/2024 6:20 PM [facility] Disclaimer Note: The Pap test is a screening test which carries an inherent false negative rate. These test results should be correlated with the patient's clinical findings and history. This Pap test was processed using an automated screening system. Technical cytopathology services provided by [facility], at [address] [place] [address] (CLIA # [id number]/Gita Barragan MD, Costumed Character Entertainer.) 05/07/2024 6:20 PM [facility] Console Pap Interpretation Reported 05/07/2024 6:20 PM [facility] Brushing/Spatula Cervix uteri structure / Unknown 05/05/2024 05/06/2024 8:41 AM EST us Jorge Luis Penaloza MD LAB CYTOLOGY ORDERABLES Final Result Performing Organization Address City/State/[facility] [[email or web address]] Co de Phone Number [facility] [address] [place] [address], documented in this encounter Visit Diagnoses Diagnosis Encounter for gynecological examination (general) (routine) without abnormal findings documented in this encounter Care Teams Formula Maker Relationship Specialty Start Date End Date Carolina Fairbanks MD [address] [place] [address] PCP - General Internal Medicine 09/02/24 documented as of this encounter
== END 2024-09-17 11:48 | disposition home or self-care (01) ==
LOC: HO.HMCC 10:44
PROVIDERS: PCP Internal Medicine; Visit Provider Internal Medicine
DX: Z00.01 Encounter for general adult medical examination with abnormal findings (principal); E78.5 Hyperlipidemia, unspecified; I10 Essential (primary) hypertension; M81.0 Age-related osteoporosis without current pathological fracture; H35.30 Unspecified macular degeneration; K22.70 Barrett's esophagus without dysplasia; D16.4 Benign neoplasm of bones of skull and face

== ENCOUNTER → 2024-09-17 10:43 | Outpatient (BNVA) | payer MEDICARE, SELFPAY | PROVIDERS: PCP Internal Medicine; Visit Provider Internal Medicine | DX: Z00.01 Encounter for general adult medical examination with abnormal findings (principal); E78.5 Hyperlipidemia, unspecified; I10 Essential (primary) hypertension; M81.0 Age-related osteoporosis without current pathological fracture; H35.30 Unspecified macular degeneration; K22.70 Barrett's esophagus without dysplasia; D16.4 Benign neoplasm of bones of skull and face | CPT/HCPCS: 96127; 99397 ==

== ENCOUNTER 2024-12-22 20:15 | Emergency (ER) | payer MEDICARE, SELFPAY ==
--- NOTE | 2024-12-22 20:17 | ECG_ITS ---
Test Reason : CP-SOB Blood Pressure : */* mmHG Vent. Rate : 57 BPM Atrial Rate : 57 BPM P-R Int : 170 ms QRS Dur : 86 ms QT Int : 386 ms P-R-T Axes : 49 -28 35 degrees QTcB Int : 375 ms Sinus bradycardia Otherwise normal ECG When compared with ECG of 19-Dec-2020 09:10, No significant change was found Referred By: Nirmala Hussein Electronically Signed By: SANDRA OSHEA MD
--- NOTE | 2024-12-22 20:33 | ED_ITS ---
HPI - General Adult General Chief complaint: Chest Pain Stated complaint: palpitations,dizziness,stomach issues Time Seen by Provider: 12/23/24 03:45 Source: patient and family Mode of arrival: ambulatory Limitations: no limitations History of Present Illness ED Provider: Dr. Kimberly Patterson HPI narrative: 74-year-old female history of hypertension, hyperlipidemia, GERD, Sharma's esophagus, IBS, followed by Dr. Lin presenting with burning sensation in her throat and a heaviness in her chest that is been ongoing for several weeks now. Admits that she is having a procedure performed next week on her mouth by an oral surgeon and was concerned about being able to have the surgery with these symptoms. Reports feeling extremely anxious about it. Symptoms have been intermittent and particularly associated with fluid or food intake. Denies associated fevers or chills, cough or cold-type symptoms, nausea or vomiting, weight loss, diarrhea or constipation, known sick contacts or travel. Related Data Home Medications ?Medication ?Instructions ?Recorded ?Confirmed antiarthritic combination no.2 900 mg PO 06/22/2007/27 mg tablet (glucosamine-chondroitin) calcium 600 mg (as cap PO 06/22/20 08/18/24 carbonate)-vitamin D3 12.5 mcg (500 unit) capsule (Calcium with Vit D3) lutein 20 mg capsule 20 mg PO DAILY 06/22/2007/27 propylene glycol 0.6 % eye drops 1 drp ophthalmic (eye ) DAILY PRN 06/22/20 08/18/24 (Systane Balance) coenzyme G35-tapapko E 100 mg-100 cap PO .QOD 09/29/20 08/18/24 unit capsule fexofenadine 180 mg tablet 180 mg PO DAILY PRN seasona l 08/03/21 08/18/24 allergie omega-3 417 mg-dha 120 mg-epa-276 1 cap PO DAILY 08/0308/18/24 mg-fish oil 600 mg-turmeric capsule wheat dextrin 3 gram/3.5 gram oral 1 packet PO DAILY 0 08/03/22 08/18/24 powder packet (Benefiber Clear Sugar Free(dextrin)) fluticasone propionate 50 1 spray intranasal DAILY 02/1708/18/24 mcg/actuation nasal spray,suspension (Flonase Allergy Relief) omeprazole 20 mg capsule,delayed 20 mg PO ONCE 10/09/2 3 08/18/24 release Previous Rx's ?Medication ?Instructions ?Recorded ibuprofen 600 mg tablet 600 mg PO Q8H PRN pain 10 da ys #30 04/06/23 tabs albuterol sulfate 90 mcg/actuation 2 puff inhalation Q 6H PRN 06/22/23 aerosol inhaler shortness of breath or wheez ing #6.7 grams carvedilol 3.125 mg tablet 3.125 mg PO BID #180 tabs 1 06/15/23 meclizine 25 mg tablet 25 mg PO TID PRN dizziness # 10 tabs 06/18/24 atorvastatin 40 mg tablet 40 mg PO DAILY #90 tabs 06/21 Allergies Allergy/AdvReac Type Severity Reaction Status Date / Time metronidazole (From FLAGYL) AdvReac Mild ANOREXIA Verified 12/22/24 20:36 From Avelox AdvReac Mild NASUEA,CONF Uncoded 09/17/24 11:28 USION Review of Systems 2 Review of Systems: as per HPI, full review of systems performed and negative but for the above mentioned pertinent positives and negatives. [facility] Past Medical History Attestation statement: The following information was validated with the patient. [facility] Narrative: hypertension, hyperlipidemia, GERD, Sharma's esophagus, IBS Medical History Irritable larynx syndrome Osteoporosis Congestion of nasal sinus Post-nasal drainage Macular degeneration of left eye Chest pain Irritable bowel syndrome with constipation Skin lesion of back Diverticulitis Salivary duct obstruction GERD with stricture Esophagus, Sharma's Intermittent palpitations Osteopenia of hip PUD (peptic ulcer disease) Cemento-osseous dysplasia Anxiety Essential hypertension Dyslipidemia Surgical History Hx of colonoscopy Family History Family History Father No problems noted. Mother No problems noted. Brother Hypertension Other Substance abuse Social History [facility] Alcohol intake: current Alcohol intake frequency: holidays/special occasions only Alcohol type: wine Patient Tobacco Use Status: Former Tobacco user Tobacco use type: Cigarette Smoked in Last 30 Days: No e-Cigarette/Vaping Use: Never Used Use of substances other than those prescribed or required for medical reasons: No Advance Directives: No Advance Directives Information Provided: Yes service: No Current occupational status: retired Cognitive needs: No Hearing needs: No Vision needs: Yes Physical Exam ED Exam Exam: GENERAL: Chronically ill-appearing, conversant, no acute distress. SKIN: Normal skin color for ethnicity, warm, dry, no rashes noted. HEENT: Normocephalic, atraumatic, no stridor, posterior oropharynx nonerythematous without exudate, EOMI. NECK: Soft, supple, full ROM, midline structures nontender, no step-offs, no deformities, no lymphadenopathy. CHEST: Heart regular rate and rhythm, no murmurs, symmetric chest rise and fall. PULMONARY: Clear to auscultation bilaterally, no labored breathing, no wheezes/rhales/ rhonchi. ABDOMINAL: Soft, nondistended, nontender, positive bowel sounds in all quadrants. : Deferred. MUSCULOSKELETAL: Normal tone, full range of motion, no deformities, no peripheral edema. NEURO: Alert and oriented to person, CN II through XII intact, no focal neurologic deficits. PSYCHIATRIC: Flat affect, fluid speech, appropriate demeanor. Vital Signs: Vital Signs - 24 hr 12/22/24 20:35 12/23/24 03:24 Temperature 97.5 F Pulse Rate 60 99 Respiratory Rate 18 11 L Blood Pressure 175/80 H 143/75 H Pulse Oximetry 98 100 Oxygen Delivery Method Room Air Room Air BMI result Body Mass Index 22.4 Course Course Course Narrative: This is a rapid medical exam performed by Dania Hussein NP: Additional HPI, ROS, PE not included below will be deferred to primary provider. Patient is a 74-year-old female with history of HTN, dyslipidemia, PUD, GERD, Sharma's esophagus, IBS presenting from urgent care with complaint of palpitations. Has had acid reflux and heaviness to upper back for a few weeks. States she is having a procedure this week where she is having a bone on the roof of her mouth shaved down, unsure if her sxs are r/t anxiety about this. Plan: EKG, labs Medical Decision Making Medical Decision Making MDM Narrative: Patient presents today with a chief complaint of chest pain. Differential diagnosis includes, but is not limited to, acute coronary syndrome, musculoskeletal pain, pneumothorax, GERD, pleurisy, pulmonary embolism, dissection, among others. I will order EKG, chest x-ray, the laboratory workup including cardiac enzymes to further evaluate for etiology. Patient had an extensive workup including chest x-ray, EKG, blood work including cardiac enzymes. Workup is reassuring. I see no evidence of ischemia on her EKG, chest x-ray is clear. We had an extensive discussion regarding the safety of having her surgery with the oral maxillofacial surgeon and importance of bringing up her concerns with her surgeon. Today I see no emergent pathology that requires intervention. Suspect most of her symptoms are secondary to her extensive esophageal disease. We discussed home remedies, including honey to soothe the throat, using shared decision making, plan for discharge home to follow-up with primary care and/or specialist. Patient understands and agrees with plan for discharge. Discharged home in stable condition. Differential Diagnosis Differential Diagnoses: The differential diagnosis associated with the presentation includes (as above) Admission/Observation Consideration of admission/observation: Escalation of care including admission/observation considered Lab Data MDM Lab Attestation statement: I reviewed the patient's lab results. 12/22/24 21:04 12/22/24 21:04 Labs: Lab Results 12/22/24 Range/Units 21:04 WBC 5.2 (4.8-10.8) X10*3/uL RBC 4.00 L (4.20-5.50) X10*6/uL Hgb 12.9 (12.0-16.0) g/dl Hct 37.9 (37.0-47.0) % MCV 94.8 (80.0-98.0) fL MCH 32.3 (27.0-33.0) pg MCHC 34.0 (31.0-35.0) g/dl RDW 12.6 (11.0-16.0) % Plt Count 214 (160-400) X10*3/uL MPV 10.2 (9.4-12.3) fL Immature Gran % (Auto) 0.4 (0.0-0.4) % Neut % (Auto) 50.0 (45-73) % Lymph % (Auto) 38.0 (20-40) % [place] % (Auto) 8.7 (2-11) % Eos % (Auto) 2.3 (0-4) % Baso % (Auto) 0.6 (0-2) % Lymph # (Auto) 2.0 (1.2-4.9) X10*3/uL [place] # (Auto) 0.5 (0.1-1.2) X10*3/uL Eos # (Auto) 0.1 (0.0-0.4) X10*3/uL Baso # (Auto) 0.0 (0.0-0.2) X10*3/uL Abs Immat Gran (auto) 0.02 (0.00-0.03) X10*3/uL Absolute Neuts (auto) 2.6 (2.0-8.3) x10*3/uL Absolute Nucleated RBC 0.000 (0.0-0.012) X10*3/uL Nucleated RBC % (auto) 0.0 (0.0-0.2) /100WBC PT 10.6 L (10.9-12.4) SEC INR 0.9 (0.9-1.1) Sodium 142 (135-145) mmol/L Potassium 5.2 H (3.3-5.1) mmol/L Chloride 108 (96-108) mmol/L Carbon Dioxide 26 (22-29) mmol/L Anion Gap 13 (12-20) BUN 15 (9-16) mg/dL Creatinine 0.96 (0.5-1.4) mg/dL Estim Creat Clear Calc 40.0 Estimated GFR 57 Random Glucose 103 (60-115) mg/dL Calcium 9.0 (8.4-10.2) mg/dL Total Bilirubin 0.4 (0.0-1.0) mg/dL AST 32 H (5-31) U/L ALT 25 (0-31) U/L Alkaline Phosphatase 62 (39-117) U/L Troponin I High Sens < 2.7 (<3.5-17.0) ng/L Total Protein 6.6 (6.5-8.0) g/dL Albumin 4.1 (3.5-5.0) g/dL Independent Historian Clinical information obtained from an independent historian. History obtained from or confirmed by: Spouse Prescription Management I considered prescription management with: Pain Medication Chronic Conditions Patient?s care impacted by: Hypertension and Other (IBS) Discharge Plan Discharge Clinical Impression: GERD with esophagitis, Heart palpitations Patient Disposition: Home, Self-Care Instructions: Heart Palpitations (ED), GERD (Gastroesophageal Reflux Disease) (ED) Additional Instructions: Increase your dose of your omeprazole to 20 mg twice a day or 40 mg in the morning. Call your heel emery buffer to schedule an appointment as soon as possible. Return to the emergency department immediately if you develop any new or worsening symptoms including: Worsening chest pain, difficulty breathing, fevers greater than 100?, inability to tolerate food or drink, any new symptom that concerns you. Call 911 with any medical emergency. Prescriptions: No Action ibuprofen 600 mg tablet 600 mg PO Q8H PRN (Reason: pain) 10 Days Qty: 30 0RF carvedilol 3.125 mg tablet 3.125 mg PO BID Qty: 180 3RF atorvastatin 40 mg tablet 40 mg PO DAILY Qty: 90 1RF calcium carbonate-vitamin D3 [Calcium 600 with Vitamin D3] 600 mg(1,500mg) - 500 unit capsule PO glucosamine-chondroitin 900 mg tablet PO lutein 20 mg capsule 20 mg PO DAILY Rx Instructions: give with meal/snack Systane Balance 0.6 % drops 1 drp ophthalmic (eye) DAILY PRN fexofenadine 180 mg tablet 180 mg PO DAILY PRN (Reason: seasonal allergie) omeprazole 20 mg capsule,delayed release(DR/EC) 20 mg PO ONCE coenzyme [id number] E 100-100 mg-unit capsule PO .QOD fluticasone propionate [Flonase Allergy Relief] 50 mcg/actuation spray,suspension 1 spray intranasal DAILY Rx Instructions: administer into each nostril albuterol sulfate 90 mcg/actuation HFA aerosol inhaler 2 puff inhalation Q6H PRN (Reason: shortness of breath or wheezing) Qty: 6.7 0RF omega 2-nop-rws-fish-turmeric 417 mg-120 mg- 276 mg-600 mg capsule 1 cap PO DAILY Benefiber Clear SF (dextrin) 3 gram/3.5 gram powder in packet 1 packet PO DAILY Rx Instructions: mix into at least 4 oz water or juice before administering meclizine 25 mg tablet 25 mg PO TID PRN (Reason: dizziness) Qty: 10 0RF Interventions: ED Discharge Assessment Last Done: 12/23/24 06:43 Discharge Date/Time: 12/23/24 06:43 Print Language: [place]
[2024-12-22 20:35] VITALS: BP 175/80; PULSE 60; RESP 18; TEMP 36.4; O2SAT 98; BMI 22.4
[2024-12-22 21:13] LABS: MANUAL DIFF FLAG NO
[2024-12-22 21:14] LABS: Hematocrit 37.9 % (37.0-47.0); Hemoglobin 12.9 g/dl (12.0-16.0); Imm Gran Abs Auto 0.02 X10*3/uL (0.00-0.03); Imm Gran Pct Auto 0.4 % (0.0-0.4); Lymphocytes Absolute Auto 2.0 X10*3/uL (1.2-4.9); Mean Corpuscular HGB Conc 34.0 g/dl (31.0-35.0); Mean Corpuscular Hemoglobin 32.3 pg (27.0-33.0); Mean Corpuscular Volume 94.8 fL (80.0-98.0); NRBC Abs Auto 0.000 X10*3/uL (0.0-0.012); NRBC Pct Auto 0.0 /100WBC (0.0-0.2); Platelet Count 214 X10*3/uL (160-400); Red Blood Count 4.00 X10*6/uL (4.20-5.50); White Blood Count 5.2 X10*3/uL (4.8-10.8)
[2024-12-22 21:36] LABS: Alanine Aminotransferase 25 U/L (0-31); Albumin Level 4.1 g/dL (3.5-5.0); Alkaline Phosphatase 62 U/L (39-117); Anion Gap 13 (12-20); Aspartate Amino Transferase 32 U/L (5-31); Blood Urea Nitrogen 15 mg/dL (9-16); Calcium 9.0 mg/dL (8.4-10.2); Carbon Dioxide 26 mmol/L (22-29); Chloride 108 mmol/L (96-108); Creatinine Clr Calc Pharmacy 40.0; Estimated Glomerular Filt Rate 57; Potassium 5.2 mmol/L (3.3-5.1); Sodium 142 mmol/L (135-145); Total Protein 6.6 g/dL (6.5-8.0)
[2024-12-22 21:44] LABS: INTERNATIONAL NORM RATIO 0.9 (0.9-1.1); Prothrombin Time 10.6 SEC (10.9-12.4); Troponin-I High Sensitivity < 2.7 ng/L (<3.5-17.0)
[2024-12-23 03:24] VITALS: BP 143/75; PULSE 99; RESP 11; O2SAT 100
[2024-12-23 06:43] VITALS: BP 133/78; PULSE 67; RESP 16; TEMP 36.6; O2SAT 97
== END 2024-12-23 06:43 | disposition home or self-care (01) ==
PROVIDERS: Registered Nurse Emergency; Emergency Provider Emergency Medicine; PCP Internal Medicine
DX: K21.00 Gastro-esophageal reflux disease with esophagitis, without bleeding (principal); R00.2 Palpitations; I10 Essential (primary) hypertension; E78.5 Hyperlipidemia, unspecified; Z87.891 Personal history of nicotine dependence; Z79.02 Long term (current) use of antithrombotics/antiplatelets; Z79.899 Other long term (current) drug therapy
CPT/HCPCS: 36415; 80053; 84484; 85025; 85610; 93005; 99283; 99284; 99285

== ENCOUNTER → 2024-12-22 20:17 | Outpatient (BNV) | payer MEDICARE, SELFPAY | PROVIDERS: Emergency Provider Emergency Medicine; PCP Internal Medicine; Visit Provider Internal Medicine Cardiovascular Disease | DX: R00.1 Bradycardia, unspecified (principal) | CPT/HCPCS: 93010 ==

== ENCOUNTER 2025-03-07 08:33 | Outpatient (REF) | payer MEDICARE, SELFPAY ==
--- OUTSIDE RECORDS SUMMARY | 2025-03-07 08:36 | XMS_ITS | Encounter Summary ---
Author Organization [facility] Address [address] [place] [address] Care Team Providers Care Panel Machine Setter Name Role Phone Carolina Fairbanks MD Primary Care Provider [phone] Encounter Details Date Type Department Care Team (Latest Contact Info) Description 05/06/2024 Lab Requisition [facility] - Main Lab [address] [place] [phone] Jorge Luis Penaloza MD [address] [phone] Encounter for gynecological examination (general) (routine) without [...] Care Team (Late st Contact Info) Description 04/01/2025 10:15 AM EST Appointment [facility] [address] [place] [phone] documented as of this encounter Procedures Procedure Name Priority Date/Time Associated Diagnosis Comments PAP SMEAR Routine 05/05/2024 12:00 AM EST Encounter for gynecological examination (general) (routine) without abnormal findings documented in this encounter Results * Pap smear (05/05/2024 12:00 AM EST) Interpretation Negative for intraepithelial lesion or malignancy 05/07/2024 6:20 PM EST [facility] General Categorization Negative 05/07/2024 6:20 PM EST [facility] Other Findings Atrophy 05/07/2024 6:20 PM EST [facility] Specimen Adequacy Satisfactory for evaluation 05/07/2024 6:[address] [facility] Disclaimer Note: The Pap test is a screening test which carries an inherent false negative rate. These test results should be correlated with the patient's clinical findings and history. This Pap test was processed using an automated screening system. Technical cytopathology services provided by [facility], at [address] [place] [address] (CLIA # [id number]/Gita Barragan MD, Sports Betting Manager.) 05/07/2024 6:[address] [facility] Console Pap Interpretation Reported 05/07/2024 6:[address] [facility] Brushing/Spatula Cervix uteri structure / Unknown 05/05/2024 05/06/2024 8:41 AM EST us Jorge Luis Penaloza MD LAB CYTOLOGY ORDERABLES Final Result [facility] [address] [place] [address], documented in this encounter Visit Diagnoses Diagnosis Encounter for gynecological examination (general) (routine) without abnormal findings Encounter for screening mammogram for breast cancer documented in this encounter Care Teams Panel Machine Setter Relationship Specialty Start Date End Date Carolina Fairbanks MD [address] [place] [address] PCP - General Internal Medicine 09/02/24 documented as of this encounter
--- OUTSIDE RECORDS SUMMARY | 2025-03-07 08:36 | XMS_ITS | Patient Health Record ---
Author Organization [facility] Address [address] [place] [address] Care Team Providers Care Resident Associate Name Role Phone Jaspreet MIKE, Pool Primary Care Provider Servando Alva [phone] Allergies Allergen (clinical drug ingredient) Drug/Non Drug Allergy documented on EMR Reaction Allergy Type Onset Date Status metronidazole Flagyl Unknown Drug Allergy Act sadaf moxifloxacin avalox (uncoded) Unknown Allergy Active Reason For Referral No Information Medications Medication SIG (Take, Route, Frequency, Duration) Notes Start Date End Date Status Omeprazole 20 MG 1 capsule Orally Onc e a day; Duration: 90 Active MoviPrep 100 GM as directed Orally a s directed; Duration: 1 dose 06/19/2013 Active Calcium 600 bid Active Glucosamine Chondr Complex 1 po qd Active Fish Oil 1200 mg 1 po qd Act sadaf Multivitamins 400 IU -D3 1 po qd Active Vitamin C 500mg 1 po qd Acti ve Problems Problem Type SNOMED Code ICD Code Onset Dates Problem Status W/U Status Risk Notes Problem Family History of Cancer of Colon (Situation) (483758787) Family history of colon cancer (V16.0) Active confirmed Problem Colon cancer screening (905777063) Colon cancer screening (V76.51) Active confirmed Problem Peptic ulcer disease (54630859) Peptic ulcer disease (533.90) Active confirmed Plan Of Treatment Future Test Test Name Order Date UPPER GI ENDOSCOPY 06/19/2013 COLONOSCOPY 06/19/2013 Insurance Providers Payer Name Payer Address Payer Phone Subscriber Number Group Number Insured Name Patient Relationship to Insured Coverage Start Date Coverage End Date [facility] [address] [place] [phone] [id number] Self - patient is the insured Medical (General) History Medical History History ICD Code colonoscopy 04/30/2008 and 2002--negative for polyps Diverticulosis seen on the colonoscopies Denies ID,DM,CVA,Lung disease,renal dise ase At [facility] 10/2012--she describe s ? of a perforated ulcer--did not need surgery-saw Dr. Vela--did not have an endoscopy--told of a negative H.pylori serology Surgical History Surgery Date(Month/Year) breast biopsies which were benign blocked salivary gland 2009
--- OUTSIDE RECORDS SUMMARY | 2025-03-07 08:36 | XMS_ITS | Clinical Summary ---
Author Organization LL [address] [place] [address] Address [address] [place] [address] Phone Care Team Providers Care Human Resources Executive Assistant Name Role Phone Carolina Pizano MD Primary [...] spray SPRAY 2 SPRAYS NASALLY ONCE DAILY 5 Active meclizine (ANTIVERT) 25 mg tablet Take [...] Encounters Date Type Department Care Team Description 01/12/2025 Telephone Gastroenterology - [address] [facility] [address] [place] [phone] Preston Barnhart MD from Last 3 Months Medical History Medical [...] Safety Answer Date Record ed Physical Abuse Unrecognized value 09/03/2024 Verbal Abuse Unrecognized value 09/03/2024 Comments Unknown Sex and Gender Information [...] 55 09/03/2024 12:40 PM EDT Temperature 36.3 C (97.3 F) 09/03/2024 12:20 PM EDT Respiratory Rate 19 09/03/2024 12:40 PM EDT Oxygen Saturation 100% 09/03/2024 12:40 PM EDT Inhaled Oxygen Concentration - - Weight 52.2 kg (115 lb) 09/03/2024 11:44 AM EDT Height 152.4 cm (5') 09/03/2024 11:44 AM EDT Body Mass Index 22.46 09/03/2024 11:44 AM EDT Plan of Treatment Upcoming Encounters Date Type Department Care Team (Late st Contact Info) Description 04/01/2025 10:15 AM EST [facility]ointment [facility] [address] [phone] Health Maintenance Due Date Last Done Comments Hepatitis C Screening 04/26/2022 Medicare Annual Wellness Visit 04/26/2022 Social Influencers of Health Screening 04/26/2022 Depression Screening 05/28/2024 COVID-19 Vaccine ( season) 2025 04/02/2024, 03/22/2023, 03/13/2022, Additional history exists Influenza Vaccine (#1) 2025 , 03/12/2023, 02/07/2022, Additional history exists Falls Risk Assessment 09/03/2025 [...] Vaccine: 50+ Years Completed 04/04/2022, 03/03/2019, 03/27/2018 HIB Vaccines Aged Out No longer eligi [...] colonic polyps Family history of colon cancer [facility] SCREENING DIGITAL Routine 03/19/2024 11:23 AM EDT [facility] DEXA AXIAL SKELETON Routine 02/02/2022 7:39 AM EDT Encounter for screening for osteoporosis from Last 3 Months or Most Recently Relevant to Health Maintenance Results * COLONOSCOPY Anesthesia - MAC; [facility] ENDOSCOPY (09/03/2024 12:19 PM EDT) Anatomical Region Laterality Modality Endoscopy 09/03/2024 12:0 6 PM EDT Impressions 09/03/2024 12:21 PM EDT - The entire examined colon is normal on direct and retroflexion views. - No specimens collected. Recommendation: - Repeat colonoscopy in 5 years for surveillance. Narrative 09/03/2024 12:21 PM EDT [facility] GI Patient Name: Anibal Alfaro Procedure Date: 09/03/2024 12:06 PM Date of : 1950 Age: 74 Room: ROOM 15 Gender: Female Note Status: Finalized Attending MD: Preston Barnhart MD, Procedure Date No Time: 09/03/2024 Procedure: Colonoscopy Indications: High risk colon cancer surveillance: Personal history of colonic polyps Providers: Preston Barnhart MD Referring MD: Preston Barnhart MD Medicines: Propofol per Anesthesia Complications: No immediate complications. Estimated Blood Loss: Estimated blood loss: none. Procedure: Pre-Anesthesia Assessment: - ASA Grade Assessment: II - A patient with mild systemic disease. After I obtained informed consent, the scope was passed under direct vision. Throughout the procedure, the patient's blood pressure, pulse, and oxygen [...] history of colonic polyps CPT copyright 2020 [employer]. All rights reserved. The codes documented in this report are preliminary and upon drapery maker review may be revised to meet current compliance requirements. Preston Barnhart MD 09/03/2024 12:21:14 PM This report has been signed electronically.Preston Barnhart MD Number of Addenda: 0 Note Initiated On: 09/03/2024 12:06 PM Scope In: Scope Out: Endoscopy Department at [facility] - [address] [place] [phone] Procedure Note Preston Barnhart MD - 09/03/2024 [facility] GI Patient Name: Anibal Alfaro Procedure Date: [...] history of colonic polyps CPT copyright 2020 [employer]. All rights reserved. The codes documented in this report are preliminary and upon drapery maker reviewmay be revised to meet current compliance requirements. Preston Barnhart MD 09/03/2024 12:21:14 PM This report has been signed electronically.Preston Barnhart MD Number of Addenda: 0 Note Initiated On: 09/03/2024 12:06 PM Scope In: Scope Out: Endoscopy Department at [address] [address] IMPRESSION: - The entire examined colon is normal on direct and retroflexion views. - No specimens collected. Recommendation: - Repeat colonoscopy in 5 years for surveillance. us Preston Barnhart MD GI~PROCEDURE ORDERABLES Fin al Result * [facility] SCREENING DIGITAL (03/19/2024 11:23 AM EDT) Anatomical Region Laterality Modality Mammography 03/19/2024 10:0 3 AM EDT Narrative 03/19/2024 11:23 AM EDT [facility] Diagnostic Imaging Department [address] [place] [address] Patient: ANIBAL ALFARO./Age/Sex: 1950 - 73 - F Unit#: [id number] [facility]onic/Ordering Site: [facility] Ordering Physician: CAROLINA PIZANO MD [facility] Screening Digital - 03/19/24 - 1024 Report Status:Signed EXAM: [facility] Screening Digital EXAM DATE AND TIME: 03/19/2024 10:25 AM HISTORY: Annual screening COMPARISON: 02/07/2023, 02/01/2022, 01/28/2021, 01/26/2020 and 06/12/2018 TECHNIQUE: Bilateral digital breast tomosynthesis was performed in the CC and MLO projections. Computer aided detection with [employer] 7.2-H and [employer] 3D 3.1 was employed. TISSUE DENSITY: b. There are scattered areas of fibroglandular density. FINDINGS: No suspicious masses, grouped microcalcifications, or areas of architectural distortion are seen. The skin and vascularity are unremarkable. IMPRESSION: Stable mammographic appearance of the breasts. No evidence of malignancy is seen. A negative mammogram in the presence of a clinically suspicious palpable abnormality does not preclude the possibility of malignancy or alter the indications for biopsy. BI-RADS: Category 1: Negative RECOMMENDATION(S): 1: Routine screening mammogram BILATERAL in 1 year. Dictating Physician: JOANN RANDLE MD Electronically Signed by: JOANN RANDLE MD Dic Date/Time: 03/19/24 1116 Sign date/Time: 03/19/24 1123 Procedure Note Joann Randle MD - 03/25/2024 [facility] Diagnostic Imaging Department [address] [place], [place] [id number] Patient: STEFGIANNIANIBAL Yamile /Age/Sex: 1950 - 73 - F Unit#: [id number] [facility] Site[facility] Ordering Physician: CAROLINA PIZANO MD [facility] Screening Digital - 03/19/24 - 1024 Report Status:Signed EXAM: [facility] Screening Digital EXAM DATE AND TIME: 03/19/2024 10:25 AM HISTORY: Annual screening COMPARISON: 02/07/2023, 02/01/2022, 01/28/2021, 01/26/2020 and 06/12/2018 TECHNIQUE: Bilateral digital breast tomosynthesis was performed in the CCand MLO projections. Computer aided detection with [employer] 7.2-H and[employer]att[employer] 3D 3.1 was employed. TISSUE DENSITY: b. [...] AM EDT Narrative 02/02/2022 7:39 AM EDT [facility] Diagnostic Imaging Department [address] [place] [address] Patient: KEVENJUNEANIBAL /Age/Sex: 1950 - 71 - F Unit#: [id number] Location/Status: [facility]/REG CLI [facility]emonic[facility] Ordering Physician: NANO PENALOZA MD Diego Dexa Axial Skeleton - 02/01/22 1114 HISTORY: The patient is a 71-year-old postmenopausal female with clinical concern for metabolic bone disease. FINDINGS: Dual [...] 93% of that of age matched controls. This yields a T-score of -2.1 and a [...] the prior examination of 09/14/2014. There has been a decrease of 6.2% in bone mineral density in the right femur and a decrease of 3.5% in bone mineral density in the left femur. 2. FRAX analysis yields a 10-year probability of major osteoporotic fracture of 24.5% and a 10-year probability of hip fracture of 6.6%. Code 38855 Dictating Physician: NIKO HAWTHORNE MD Electronically Signed by: NIKO HAWTHORNE MD Dic Date/Time: 02/02/2238 Sign date/Time: 02/02/2239 Procedure Note Niko Hawthorne MD - 05/17/2022 [facility] Diagnostic Imaging Department [address] [place] [address] Patient: ANIBAL ALFARO Yamile Maguire./Age/Sex: 1950 - 71 - F Unit#: [id number] Location/Status: [facility]/REG CLI Mnemonic/Ordering Site: [facility] Ordering [...] density of the femurs bilaterally is 0.745 gm/ze9nohgv is 74% of that of young normals [...] probability of hip fracture of 6.6%. Code 59006 Dictating Physician: NIKO HAWTHORNE MD Electronically Signed by: NIKO HAWTHORNE MD Dic Date/Time: 02/02/22737 Sign date/Time: 02/02/22738 Nano Penaloza MD IMG BI PROCEDURES Final Result from Last 3 Months or Most Recently Relevant to Health Maintenance Insurance [employer] [employer]IC[place] AD[place] Care Teams Human Resources Executive Assistant Relationship Specialty Start Date End Date Carolina Pizano MD [address] [place] [address] PCP - General Internal Medicine 09/02/24
--- OUTSIDE RECORDS SUMMARY | 2025-03-07 08:36 | XMS_ITS | Data Portability ---
Author Organization [place] - [facility], Allergy Address [address] [address] Assessment Encounter Date Assessment Date Assessment LastModified by Organization Details LastModified Time 07/30/2024 07/30/2024 74-year-old female presents for evaluation of dizziness. On exam, bilateral tympanic membranes are intact with well aerated middle ear spaces. Audiometric testing demonstrated normal sloping to moderate high-frequency sensorineural hearing loss bilaterally. Patient has been referred to vestibular therapy and I recommended that she contact [facility] to proceed. She will follow-up yearly for audiometric testing, or sooner if symptoms persist or worsen. [email or web address] Not available 07/30/2024 16:38:13 Plan of Treatment [...] Sensorine ural hearing loss of bilateral ears 614256223 Active 2022 Sensorine ural hearing loss, bilateral ; Note: Date Diagnosed : 12/01/2022 3:46 PM (H90.3) Not Available [employer] 02:51:35 Respirato ry finding 316148299 Active 2022 Feeling of foreign body in throat; Note: Date Diagnosed : 12/01/2022 3:55 PM (R09.89) Not Available [facility] 4 02:51:30 Cardiovas cular finding 769118596 Active 2022 Feeling of foreign body in throat; Note: Date Diagnosed : 12/01/2022 3:55 PM (R09.89) Not Available [facility] 4 02:51:30 Abnormal auditory perceptio n 92837739 Active 2022 Other abnormal auditory perceptio ns, bilateral ; Note: Date Diagnosed : 12/01/2022 3:55 PM (H93.293) Not Available [facility] 4 02:51:35 Dysphonia 79692668 Active 2022 Hoarsenes s; Note: Date Diagnosed : 01/17/2023 9:26 AM (R49.0) Not Available [facility] 4 02:51:29 Pharyngea l dysphagia 73623970271 105 Active 2022 Dysphagia , pharyngea l phase; Note: Date Diagnosed : 11/09/2021 5:46 PM (R13.13) Not Available [facility] 4 02:51:35 Finding of resonance of voice 927485380 Active 2022 Other voice and resonance disorders ; Note: Date Diagnosed : 11/09/2021 5:46 PM (R49.8) Not Available [facility] 4 02:51:30 Deviated nasal septum 948442722 Active 2022 Deviated nasal septum; Note: Date Diagnosed : 03/28/2023 10:37 AM (J34.2) Not Available [facility] 4 02:51:31 Disorder of nasal sinus 4062365 Active 2022 Other specified disorders of nose and nasal sinuses; Note: Date Diagnosed : 03/28/2023 10:37 AM (J34.89) Not Available [facility] 4 02:51:32 Disorder of the nose 89406446 Active 2022 Other specified disorders of nose and nasal sinuses; Note: Date Diagnosed : 03/28/2023 10:37 AM (J34.89) Not Available [facility] 4 02:51:32 Dizziness and giddiness 303104854 Active 2024 EMILIA SETHI PA-C [address] [facility],[place] [address], [place], [address] , [facility] 5 16:35:58 Problem Notes None recorded. Procedures Surgical History Date Name Laterality Status Provider Name and Address Organization Details Recorded Time 07/30/2024 Comp Audio with Tymps - 82060 & 19968 completed CHRISTIANO STEVENS [address] [facility], [place], [address], [facility] 07/30/2024 15:40:33 Imaging Results None recorded. Procedure Notes None recorded. Medical Equipment None Reported. Allergies Allergen ID Allergen Name Allergen Category Reaction Reaction Severity Criticality Documentation Date Start Date Code Code System Note Provider Name and Address Organization Details Recorded Time 550217 Flagyl medicatio n Not available Not available Not available 10/09/202344250 6 RxNorm React ion: Gastr [place] tam[place] l sympt om; Not Available [facility] 4 01:20:34 612018 Avelox medicatio n dizziness Not available Not available 10/09/2023 83116 6 RxNorm React ion: Dizzi ness; Not Available [facility] 4 01:20:34 Medications Name Sig Start [...] ion SPRAY 2 SPRAYS NASALLY ONCE DAILY 2024 active Not Available Not Available Not Avai lable Gavilyte-C 240 gram-22.72 gram-6.72 gram-5.84 gram oral solution TAKE 4,000 ML BY MOUTH 1 TIME FOR 1 DOSE. DRINK 8 OZ EVERY 10-15 MINUTES UNTIL SOLUTION IS GONE active Not Available Not Available No t Available Vitals Date Recorded Body height Body mass index (BMI) Body weight Provider Name and Address Organization Details Last Updated DateTime 07/30/2024 152.4 cm 22.5 kg/m2 06349.12 g Lucille Vasquez [place] - [facility] 07/30/2024 15:02:24 Social History None recorded. Functional Status None recorded. Mental Status None recorded. Family History Nothing Reported. Medical History No medical history recorded. Gynecological HistoryNo gynecological history recorded. Obstetrics History GPAL:G 0 P 0 0 0 0 Past Encounters Encounter ID Performer Location Encounter Start Date Encounter Closed Date Diagnosis/Indication Diagnosis SNOMED-CT Code Diagnosis ICD10 Code Diagnosis IMO Codes Diagnosis Note [id number] EMILIA SETHI PA-C [facility] [address] [address] 07/30/2024 14:48:42 07/30/2024 16:24:37 Sensorineural hearing loss of bilateral ears 184413568 H90.3 Audiologic al evaluation results: Right ear: Normal through 3 kHz sloping to moderately severe sensorineu ral hearing loss with excellent word recognitio n. Left ear: Normal sloping to a moderate sensorineu ral hearing loss with excellent word recognitio n. Tympanomet ry: Right Ear:Type A Left Ear:Type A Dizziness and giddiness [id number] R42 Health Concerns Section Related Observation LastModified by Organization Detai ls LastModified Time None Recorded Concern Status LastModified by Organization Details LastModified Time None Recorded Advance Directives Directive None Recorded Payers Insurance Date Sequence Insurance Name Policy Number Policy Ojeda Covered Member ID Ojeda Member ID Guarantor Name 07/30/2024 1 [facility]: MEDICARE HMO BLUE (MEDICARE REPLACEMENT HMO) [id number] Zamzam Alfaro [id number] Zamzam Ovalle Angelina Notes Date Note Type Note Provider Name and Address Organization Details Recorded Time 07/30/2024 text/html ROS as noted in the HPI 74-year-old female presents for evaluation of dizziness. She reports about 1 month ago, she was put on prednisone for right ear effusion by urgent care. On 07/07, she went to [facility] for dizziness described as rocking on [...] resolved without vestibular therapy. FRANK COLES MD [address] [place] [address], [phone], [facility] - [facility] 07/30/2024 17:03:04 OBGyn Episode No OBEpisode recorded.
[2025-03-07 11:32] LABS: Alanine Aminotransferase 22 U/L (0-31); Anion Gap 10 (12-20); Aspartate Amino Transferase 32 U/L (5-31); Blood Urea Nitrogen 9 mg/dL (9-16); Calcium 9.4 mg/dL (8.4-10.2); Carbon Dioxide 31 mmol/L (22-29); Chloride 107 mmol/L (96-108); Cholesterol 181 mg/dL (<200); Estimated Glomerular Filt Rate > 60; HDL Cholesterol 65 mg/dL (>40); Potassium 5.0 mmol/L (3.3-5.1); Sodium 143 mmol/L (135-145); Triglycerides 77 mg/dL (<150)
== END 2025-03-07 08:34 | disposition home or self-care (01) ==
LOC: HO.HMGCLDS 08:33
PROVIDERS: PCP Internal Medicine; Visit Provider Internal Medicine
DX: I10 Essential (primary) hypertension (principal); F41.9 Anxiety disorder, unspecified; E78.5 Hyperlipidemia, unspecified
CPT/HCPCS: 36415; 80048; 80061; 84450; 84460

== ENCOUNTER 2025-03-10 11:27 | Outpatient (AMB) | payer MEDICARE, SELFPAY ==
--- NOTE | 2025-03-10 12:26 | A.OFFPC_ITS ---
Vital Signs 03/10/25 12:27 Height 5 ft 1 in Weight 117 lb BMI 22.1 BP 134/80 Blood Pressure Location Lt brachial Position Sitting Respiration 16 Pulse 70 Pulse Source Pulse Oximeter Temp 98.0 F Temp Source Oral Pulse Oximetry (%) 98 Oxygen Delivery Method Room Air Intake Visit Reasons: 6m follow up. reschedule Intake Note: Pt is here today for her 6mo. f/u and c/o coughing nasal congestion Allergies metronidazole (From FLAGYL) Adverse Reaction (Mild, Verified 03/15/25 19:27) ANOREXIA From Avelox Adverse Reaction (Mild, Uncoded 03/15/25 19:27) NASUEA,CONFUSION Medication List - Last Reconciled 03/10/25 by Carolina Fairbanks MD albuterol sulfate 90 mcg/actuation 2 puffs inhalation Q6H PRN antiarthritic combination no.2 (glucosamine-chondroitin) mg PO atorvastatin 40 mg PO DAILY calcium carbonate-vitamin D3 600 mg-12.5 mcg (500 unit) (Calcium with Vit D3) caps PO carvedilol 3.125 mg PO BID coenzyme D46-rcycblh E 100-100 mg-unit caps PO .QOD fexofenadine 180 mg PO DAILY PRN fluticasone propionate 50 mcg/actuation (Flonase Allergy Relief) 1 spray intranasal DAILY ibuprofen 600 mg PO Q8H PRN 10 days lutein 20 mg PO DAILY meclizine 25 mg PO TID PRN omega 1-jlh-ffq-fish-turmeric 417 mg-120 mg- 276 mg-600 mg 1 cap PO DAILY omeprazole 20 mg PO BID propylene glycol 0.6% (Systane Balance) 1 drp ophthalmic (eye) DAILY PRN wheat dextrin (Benefiber Clear Sugar Free(dextrin)) 1 packet PO DAILY Tobacco use date assessed: 03/10/25 Fall risk assessment: No Falls in past year Last assessed Fall Risk: 03/10/25 Dental Screening Dental Screen Date: 03/10/25 Did you have a dental visit in the last 12 months?: Yes Did you have a dental problem in the last 6 months where you did not have access to dental care?: No Was dental information given to patient?: Patient has dentist HPI 6m follow up. reschedule HPI Details The patient is a 74-year-old female presenting with eustachian tube dysfunction and dizziness. Has been complaining of mucus clogging the passageway from the nose to the ear, causing pressure on the eardrum. The patient reports that this condition is exacerbated when lying on one side, as it affects drainage. Flonase has been prescribed to manage symptoms, although it does not completely alleviate the issue. Dizziness is managed with meclizine, which the patient takes as needed. The patient denies anemia and recent blood work indicates no infection, with stable blood sugar and improving liver function. The patient underwent recent oral surgery by Dr. Bay, an oral surgeon, for a lesion that was biopsied and found to be benign. The surgery involved removal and biopsy due to discoloration, initially raising concerns about potential malignancy. The patient experienced a fall approximately three months ago, impacting the right side, including the arm and hip. The fall resulted in significant pain, particularly in the arm, which persisted for about a month. The patient maintains regular exercise and takes calcium supplements, with a recent bone density scan indicating improvement. The patient reports a gallbladder attack, attributed to dietary indiscretion, w hich resolved with dietary adjustments. Preventative care includes a bone density scan, mammogram, and Pap smear, with the bone density scan showing improvement and the mammogram scheduled for [facility] er 5th. [facility] Medical History Abnormal swallowing Irritable larynx syndrome Osteoporosis Congestion of nasal sinus Post-nasal drainage Macular degeneration of left eye Chest pain Irritable bowel syndrome with constipation Skin lesion of back Diverticulitis Salivary duct obstruction GERD with stricture Esophagus, Sharma's Intermittent palpitations Osteopenia of hip PUD (peptic ulcer disease) Cemento-osseous dysplasia Anxiety Essential hypertension Dyslipidemia Surgical History Hx of colonoscopy Family History Father No problems noted. Mother No problems noted. Brother Hypertension Other Substance abuse Social [facility] Alcohol intake: current Alcohol intake frequency: holidays/special occasions only Alcohol type: wine Patient Tobacco Use Status: Former Tobacco user Tobacco use type: Cigarette e-Cigarette/Vaping Use: Never Used service: No Current occupational status: retired Cognitive needs: No Hearing needs: No Vision needs: Yes Questionnaire PHQ-9 Over the last 2 weeks, how often have you been bothered by any of the following problems? 1. Little interest or pleasure in doing things: not at all 2. Feeling down, depressed, or hopeless: not at all 3. Trouble falling or staying asleep, or sleeping too much: several days 4. Feeling tired or having little energy: not at all 5. Poor appetite or overeating: not at all 6. Feeling bad about yourself - or that you are a failure or have let yourself or your family down: not at all 7. Trouble concentrating on things, such as reading the newspaper or watching television: not at all 8. Moving or speaking so slowly that other people could have noticed. Or the opposite - being so fidgety or restless that you have been moving around a lot more than usual: several days 9. Thoughts that you would be better off or of hurting yourself in some way: not at all Total score: 2 Depression Screening Interpretation: Negative Depression Screening Done: Yes Source: Developed by Drs. Servando Baca, Kylee Hicks, Bryan Choe and colleagues, with an educational tiesha from [employer]. Thrive Questionnaire Date Thrive assessed: 07/24/24 I am a: Patient What is your living situation today?: I have a steady place to live Within the past 12 months, did the food you bought not last and you didn't have the money to get more?: Never true Within the past 12 months, did you worry whether your food would run out before you got money to buy more?: Never true Do you have trouble paying for medicines?: No Do you have trouble getting transportation to medical appointments?: No Do you have trouble paying your heating and electricity bill?: No Do you have trouble taking care of your child, family member or friend?: No Do you have trouble with day-to-day activities such as bathing, preparing meals, shopping, managing finances, etc.?: No Are you currently unemployed and looking for a job?: No Are you interested in more education?: No Please select the resources that you would like help with: None Currently or been in a relationship where the following occur: No concerns reported THRIVE Score: 0 AUDIT C Alcohol Use Questionnaire (AUDIT-C) 1. How often do you have a drink containing alcohol?: Monthly or less 2. How many drinks containing alcohol do you have on a typical day when you are drinking?: 1 or 2 3. How often do you have six or more drinks on one occasion?: Never Total Score: 1 RUBEN-7 AMB Questionnaire RUBEN-7 Date RUBEN - 7 assessed: 03/25/24 Source: Developed by Drs. Servando Baca, Kylee Hicks, Bryan Choe and colleagues, with an educational tiesha from [employer]. Review of Systems Const Denies chills, Denies fatigue, Denies fever(s) and Denies weakness Eyes Details: sees Dr Escobar ENT Details: Dr Melendez oral surgeon removed an palatal mass , benign findings Reports as per HPI Card Denies chest pain, Denies leg edema, Denies lightheadedness, Denies palpitations and Denies dyspnea Resp Denies dyspnea GI Denies hematochezia Reports no additional complaints Musc Denies abnormal gait, Denies muscle weakness, Denies numbness and Denies radiating pain into limb Skin/Breast Details: Currently sees Dr. Johnson for her routine skin screening Neuro Denies abnormal gait, Denies numbness and Denies weakness Psych Reports no additional complaints Endo Denies fatigue and Denies palpitations Tom/Lymph Reports no additional complaints Aller/Immun Reports no additional complaints Physical exam (Primary Care) Vital Signs: Last Vital Signs Temp 98.0 F 03/10/25 12:27 Pulse 70 03/10/25 12:27 Resp 16 03/10/25 12:27 BP 134/80 03/10/25 12:27 Pulse Ox 98 03/10/25 12:27 Oxygen Delivery Method Room Air 03/10/25 12:27 BMI result Body Mass Index 22.1 Tobacco/Smoking Status: Tobacco use Status Tobacco use date assessed 03/10/25 03/10/25 12:31 Patient Tobacco Use Status Former Tobacco user 03/10/25 12:31 Tobacco use type Cigarette 03/10/25 12:31 e-Cigarette/Vaping Use Never Used 03/10/25 12:31 PHQ-9: PHQ-9 Score PHQ-9: Total score 2 03/15/25 18:54 Depression Screening Interpretation: Negative Thrive Assessment: Date of Thrive Assessment Date Thrive assessed 07/24/24 03/10/25 12:31 Currently or been in a relationship where the following occur: No concerns reported Const General: no acute distress and alert Orientation/consciousness: patient oriented x3 HENMT Ears: external ears normal, TM's normal bilaterally and EAC's normal General nose exam: Normal external nose present Face and sinus: Yes face symmetric Mouth: Normal oral and palatal mucosa present and moist mucous membranes Neck Neck: Yes full ROM, Yes no lymphadenopathy and Yes supple Resp Auscultation: clear to auscultation bilaterally Cardio Other: S1-S2 present regular rate and rhythm GI Palpation (GI): Soft to palpation, nontender, no guarding and no masses Auscultation: normal bowel sounds Back/Spine/Pelvis Back: No back tenderness Skin General skin exam: no rashes or lesions noted Neuro General: patient oriented x3, gait normal, moves all extremities and no focal motor deficits Extrem General: Yes full ROM, Yes no joint enlargement and Yes normal gait Results Reviewed Results Reviewed: Name: Zamzam Alfaro Age/Sex: 74/F : 1950 Unit#: [id number] Attend Dr: Carolina Fairbanks MD Re03/07/25 Status: DEP REF Location: [facility] Disch: SPEC : [id number] TIFFANIE: 03/07/25 STATUS: COMP REQ : [id number] RECD: 03/07/[address]: Carolina Fairbanks MD COMP: 03/07/25 ENTERED: 03/07/[address] [facility] [address] [address]: ORDERED: Met Prof Fast, AST, ALT, Lipid Panel Test Result Flag Reference Sodium 143 135-145 mmol/L Potassium 5.0 3.3-5.1 mmol/L CL 107 96-108 mmol/L CO2 31 H 22-29 mmol/L Gap 10 L 12-20 BUN 9 9-16 mg/dL Creat 0.80 0.5-1.4 mg/dL eGFR > 60 Chronic Kidney Disease: Estimated GFR < 60 mL/min/1.73m2 Severe Kidney Disease: Estimated GFR < 15 mL/min/1.73m2 FBS 86 60-99 mg/dL CA 9.4 8.4-10.2 mg/dL AST (GOT) 32 H 5-31 U/L ALT (GPT) 22 0-31 U/L Triglyceride 77 <150 mg/dL Desirable Triglyceride: less than 150 mg/dL Borderline High Triglyceride 150-199 mg/dL High Triglyceride: 200-499 mg/dL Very High Triglyceride: greater than or equal to 5OO mg/dL Cholesterol 181 <200 mg/dL Desirable Cholesterol: less than 200 mg/dL Borderline High Cholesterol: 200-239 mg/dL High Cholesterol: greater than 239 mg/dL LDL Calculated 101 H <100 mg/dL Desirable LDL: less than 100 mg/dL Near Optimal/Above Optimal LDL: 110-129 mg/dL Borderline High LDL: 130-159 mg/dL High LDL: 160-189 mg/dL Very High LDL: greater than or equal to 190 mg/dL HDL 65 >40 mg/dL Desirable HDL: greater than 40 mg/dL Note: This HDL assay may give artificially Coding Level of Care Code Est Pt Level 4 (15271) Complex EM visit Add On G2211 Diagnoses Dysfunction of left eustachian tube H69.92 Laterality: left Essential hypertension I10 Dyslipidemia E78.5 Osteoporosis M81.0 Assessment & Plan Assessment & Plan (1) Eustachian tube dysfunction: Code(s): H69.90 - Unspecified Eustachian tube disorder, unspecified ear Category: Medical Qualifiers: Laterality: left Qualified Code(s): H69.92 - Unspecified Eustachian tube disorder, left ear Plan: Continue using Flonase nasal spray as needed, if symptoms persist will refer to Ear Nose and Throat, take meclizine as needed for intermittent episodes of dizz iness (2) Essential hypertension: Code(s): I10 - Essential (primary) hypertension Category: Medical Plan: Blood pressure at goal of less than 130/80. Continue with current medication. Reinforced importance of following a low sodium diet, getting regular exercise, and lowering stress levels. (3) Dyslipidemia: Code(s): E78.5 - Hyperlipidemia, unspecified Category: Medical Plan: Reviewed recent fasting lipid profile with patient with levels within normal limits . Continue atorvastatin 40 mg daily , in addition to adherence to low-cholesterol diet and regular exercise, at least 30 minutes 3 to 4 times a week. Advised patient to make healthy food choices, eat more fruits, vegetable s, whole grains, wild caught fish and low-fat dairy. Limit amount of meat and fried or fatty food products, as well as processed foods and fast foods. (4) Osteoporosis: Comment: Last bone density scan showed unchanged osteoporosis in left femoral neck, [address] Penaloza Code(s): M81.0 - Age-related osteoporosis without current pathological fracture Category: Medical Plan: Currently followed by Dr. Penaloza, currently taking calcium and vitamin-D supplement, encouraged doing regular weight-bearing exercise, patient due for recheck bone density, which is ordered by her OBGYN
[2025-03-10 12:27] VITALS: BP 134/80; PULSE 70; RESP 16; TEMP 36.7; O2SAT 98; BMI 22.1
--- OUTSIDE RECORDS SUMMARY | 2025-03-10 14:02 | XMS_ITS | Encounter Summary ---
Author Organization [facility] Address [address] [place] [address] Care Team Providers Care Ladle Liner Helper Name Role Phone Carolina Fairbanks MD Primary Care Provider Encounter Details Date Type Department Care Team (Latest Contact Info) Description 05/06/2024 Lab Requisition [facility] - Main Lab [address] [place] [phone] Jorge Luis Penaloza MD [address] [phone] Encounter for gynecological examination (general) (routine) without [...] AM EST Appointment [facility] [address] [place] [phone] documented as of this encounter Procedures Procedure Name Priority Date/Time Associated Diagnosis Comments PAP SMEAR Routine 05/05/2024 12:00 AM EST Encounter for gynecological examination (general) (routine) without abnormal findings documented in this encounter Results * Pap smear (05/05/2024 12:00 AM EST) Interpretation Negative for intraepithelial lesion or malignancy 05/07/2024 6:20 PM EST [facility] General Categorization Negative 05/07/2024 6:20 PM EST [facility] Other Findings Atrophy 05/07/2024 6:20 PM EST [facility] Specimen Adequacy Satisfactory for evaluation 05/07/2024 6:20 PM [facility] Disclaimer Note: The Pap test is a screening test which carries an inherent false negative rate. These test results should be correlated with the patient's clinical findings and history. This Pap test was processed using an automated screening system. Technical cytopathology services provided by [facility], at [address] [place] [address] (CLIA # [id number]/Gita Barragan MD, Client Relations Associate.) 05/07/2024 6:20 PM [facility] Console Pap Interpretation Reported 05/07/2024 6:20 PM [facility] Brushing/Spatula Cervix uteri structure / Unknown 05/05/2024 05/06/2024 8:41 AM EST us Jorge Luis Penaloza MD LAB CYTOLOGY ORDERABLES Final Result [facility] [address] [place] [address], documented in this encounter Visit Diagnoses Diagnosis Encounter for gynecological examination (general) (routine) without abnormal findings Encounter for screening mammogram for breast cancer documented in this encounter Care Teams Ladle Liner Helper Relationship Specialty Start Date End Date Carolina Fairbanks MD [address] [place] [address] PCP - General Internal Medicine 09/02/24 documented as of this encounter
--- OUTSIDE RECORDS SUMMARY | 2025-03-10 14:03 | XMS_ITS | Clinical Summary ---
Author Organization [facility] [address] [place] [address] Address [address] [place] [address] Phone Care Team Providers Care Sales Development Executive Name Role Phone Carolina Pizano MD Primary [...] 01/12/2025 Telephone Gastroenterology - [address] [facility] [address] [place] [phone] Preston Barnhart MD from Last 3 [...] AM EST Appointment [facility] at [address] [phone] Health Maintenance Due Date Last [...] colonic polyps Family history of colon cancer [facility] SCREENING DIGITAL Routine 03/19/2024 11:23 AM EDT [facility] DEXA AXIAL SKELETON Routine 02/02/2022 7:39 AM EDT Encounter for screening for osteoporosis from Last 3 Months or Most Recently Relevant to Health Maintenance Results * COLONOSCOPY Anesthesia - MAC; [facility] ENDOSCOPY (09/03/2024 12:19 PM EDT) Anatomical Region Laterality Modality Endoscopy 09/03/2024 12:0 6 PM EDT Impressions 09/03/2024 12:21 PM EDT - The entire examined colon is normal on direct and retroflexion views. - No specimens collected. Recommendation: - Repeat colonoscopy in 5 years for surveillance. Narrative 09/03/2024 12:21 PM EDT [facility] Patient Name: Anibal Alfaro Procedure [...] history of colonic polyps CPT copyright 2020 [employer]. All rights reserved. The codes documented in this report are preliminary and upon sales apprentice review may be revised to meet current compliance requirements. Preston Barnhart MD 09/03/2024 12:21:14 PM This report has been signed electronically.Preston Barnhart MD Number of Addenda: 0 Note Initiated On: 09/03/2024 12:06 PM Scope In: Scope Out: Endoscopy Department at [facility] - [address] [place] [phone] Procedure Note Preston Barnhart MD - 09/03/2024 [facility] Patient Name: Anibal Alfaro Procedure [...] history of colonic polyps CPT copyright 2020 [employer]. All rights reserved. The codes documented in this report are preliminary and upon sales apprentice reviewmay be revised to meet current compliance requirements. Preston Barnhart MD 09/03/2024 12:21:14 PM This report has been signed electronically.Preston Barnhart MD Number of Addenda: 0 Note Initiated On: 09/03/2024 12:06 PM Scope In: Scope Out: Endoscopy Department at [address] [phone] IMPRESSION: - The entire examined colon is normal on direct and retroflexion views. - No specimens collected. Recommendation: - Repeat colonoscopy in 5 years for surveillance. us Preston Barnhart MD GI~PROCEDURE ORDERABLES Fin al Result * [facility] SCREENING DIGITAL (03/19/2024 11:23 AM EDT) Anatomical Region Laterality Modality Mammography 03/19/2024 10:0 3 AM EDT Narrative 03/19/2024 11:23 AM EDT [facility] Diagnostic Imaging Department [address] [place] [id number] Patient: ANIBAL ALFARO./Age/Sex: 1950 - 73 - F Unit#: [id number] [facility]Ordering Site[facility] Ordering Physician: CAROLINA PIZANO MD [facility] Screening Digital - 03/19/24 - 1024 Report Status:Signed EXAM: [facility] Screening Digital EXAM DATE AND TIME: 03/19/2024 10:25 AM HISTORY: Annual screening COMPARISON: 02/07/2023, 02/01/2022, 01/28/2021, 01/26/2020 and 06/12/2018 TECHNIQUE: Bilateral digital breast tomosynthesis was performed in the CC and MLO projections. Computer aided detection with [employer] 7.2-H and Conjure 3D 3.1 was employed. TISSUE DENSITY: b. [...] Note Joann Randle MD - 03/25/2024 [facility] Diagnostic Imaging Department [address] [place], [place] [id number] Patient: STEFGIANNIANIBAL Yamile /Age/Sex: 1950 - 73 - F Unit#: [id number] [facility]/Ordering Site: [facility] Ordering Physician: CAROLINA PIZANO MD [facility] Screening Digital - 03/19/24 - 1024 Report Status:Signed EXAM: [facility] Screening Digital EXAM DATE AND TIME: 03/19/2024 10:25 AM HISTORY: Annual screening COMPARISON: 02/07/2023, 02/01/2022, 01/28/2021, 01/26/2020 and 06/12/2018 TECHNIQUE: Bilateral digital breast tomosynthesis was performed in the CCand MLO projections. Computer aided detection with [employer] 7.2-H andConjure 3D 3.1 was employed. TISSUE DENSITY: b. [...] EDT Narrative 02/02/2022 7:39 AM EDT [facility] Diagnostic Imaging Department [address] [place] [address] Patient: PATRICKJUNEANIBAL /Age/Sex: 1950 - 71 - F Unit#: [id number] Location/Status: [facility]REG CLI Mnemonic/Ordering Site[facility] Ordering Physician: NANO PENALOZA MD Diego Dexa [...] probability of hip fracture of 6.6%. Code 41003 Dictating Physician: NIKO HAWTHORNE MD Electronically Signed by: NIKO HAWTHORNE MD Dic Date/Time: 02/02/2238 Sign date/Time: 02/02/2239 Procedure Note Niko Hawthorne MD - 05/17/2022 [facility] Diagnostic Imaging Department [address] [place] [address] Patient: ANIBAL ALFARO Yamile Maguire./Age/Sex: 1950 - 71 - F Unit#: [id number] Location/Status: [facility]/REG CLI Mnemonic/Ordering Site: [facility] Ordering [...] density of the femurs bilaterally is 0.745 gm/bb6gkvap is 74% of that of young normals [...] probability of hip fracture of 6.6%. Code 44645 Dictating Physician: NIKO HAWTHORNE MD Electronically Signed by: NIKO HAWTHORNE MD Dic Date/Time: 02/02/22737 Sign date/Time: 02/02/22738 Nano Penaloza MD IMG BI PROCEDURES Final Result from Last 3 Months or Most Recently Relevant to Health Maintenance Insurance [employer] [place] MEDICARE ADVANTAGE Care Teams Sales Development Executive Relationship Specialty Start Date End Date Carolina Pizano MD [address] [place] [address] PCP - General Internal Medicine 09/02/24
--- OUTSIDE RECORDS SUMMARY | 2025-03-10 14:03 | XMS_ITS | Patient Health Record ---
Author Organization [facility] Address [address] [place] [address] Care Team Providers Care Adjustment Examiner Name Role Phone Jaspreet MIKE, Pool Primary Care Provider Servando Alva [phone] Allergies Allergen (clinical drug ingredient) Drug/Non Drug [...] Family History of Cancer of Colon (Situation) (705230178) Family history of colon cancer (V16.0) Active confirmed Problem Colon cancer screening (044097509) Colon cancer screening (V76.51) Active confirmed Problem Peptic ulcer disease (03060133) Peptic ulcer disease (533.90) Active confirmed Plan Of Treatment Future Test Test Name Order Date UPPER GI ENDOSCOPY 06/19/2013 COLONOSCOPY 06/19/2013 Insurance Providers Payer Name Payer Address Payer Phone Subscriber Number Group Number Insured Name Patient Relationship to Insured Coverage Start Date Coverage End Date [facility] [address] [facility] [place] [place] [phone] [id number] STEFANIBAL Self - patient is the insured Medical (General) History Medical History History ICD Code colonoscopy 04/30/2008 and 2002--negative for polyps Diverticulosis seen on the colonoscopies Denies OK,DM,CVA,Lung disease,renal dise ase [facility] 10/2012--she describe s ? of a perforated ulcer--did not need surgery-saw Dr. Vela--did not have an endoscopy--told of a negative H.pylori serology Surgical History Surgery Date(Month/Year) breast biopsies which were benign blocked salivary gland 2009
== END 2025-03-10 12:56 | disposition home or self-care (01) ==
LOC: HO.HMCC 11:28
PROVIDERS: PCP Internal Medicine; Visit Provider Internal Medicine
DX: H69.92 Unspecified Eustachian tube disorder, left ear (principal); I10 Essential (primary) hypertension; E78.5 Hyperlipidemia, unspecified; M81.0 Age-related osteoporosis without current pathological fracture

== ENCOUNTER → 2025-03-10 11:27 | Outpatient (BNVA) | payer MEDICARE, SELFPAY | PROVIDERS: PCP Internal Medicine; Visit Provider Internal Medicine | DX: H69.92 Unspecified Eustachian tube disorder, left ear (principal); I10 Essential (primary) hypertension; R42 Dizziness and giddiness; E78.5 Hyperlipidemia, unspecified; M81.0 Age-related osteoporosis without current pathological fracture; Z91.81 History of falling | CPT/HCPCS: 96127; 99212 ==

== ENCOUNTER 2025-04-08 12:03 | Outpatient (AMB) | payer MEDICARE, SELFPAY ==
[2025-04-08 12:13] VITALS: BP 146/94; PULSE 64; TEMP 36.5; O2SAT 99; BMI 22.5
--- NOTE | 2025-04-08 12:13 | AM.OFFWIN_ITS ---
Intake Vital Signs 04/08/25 12:13 Height 5 ft 1 in Weight 119 lb BMI 22.5 BP 146/94 H Blood Pressure Location Lt brachial Position Sitting Pulse 64 Pulse Source Pulse Oximeter Temp 97.7 F Temp Source Oral Pulse Oximetry (%) 99 Oxygen Delivery Method Room Air Comment High BP- meds taken 4 hrs prior. provider notified. Intake Visit Reasons: EP Nausea, dizzy, loose stool Intake Note: pt presents with nausea, dizziness and loose stools beginning this morning when she woke up. pt reports a similar situation this past july, she went to [facility]- was dx with vertigo. States she took her meds this morning >4 hrs ago, later on used flonase and then a little later took meclizine without any symptom improvement. Patient Tobacco Use Status: Former Tobacco user Allergies metronidazole (From FLAGYL) Adverse Reaction (Mild, Verified 04/08/25 12:18) ANOREXIA From Avelox Adverse Reaction (Mild, Uncoded 04/08/25 12:18) NASUEA,CONFUSION Do you need a note to return to daycare/school/sports/work: No HPI EP Nausea, dizzy, loose stool HPI Details This is a 74-year-old female patient who presents to the walk-in clinic today with nausea, loose stools, ear fullness, vertigo since this morning. Similar episode occurred back in July. This resolved with hydration, meclizine, Flonase, decongestants. 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 She states that she took Flonase and meclizine this morning, and is starting to feel better. Has had a couple of loose stools. No abdominal pain. No vomiting, however has had some mild nausea. History of ENT issues-scheduled for follow up there in July. [facility] Medical History Abnormal swallowing Irritable larynx syndrome Osteoporosis Congestion of nasal sinus Post-nasal drainage Macular degeneration of left eye Chest pain Irritable bowel syndrome with constipation Skin lesion of back Diverticulitis Salivary duct obstruction GERD with stricture Esophagus, Sharma's Intermittent palpitations Osteopenia of hip PUD (peptic ulcer disease) Cemento-osseous dysplasia Anxiety Essential hypertension Dyslipidemia Surgical History Hx of colonoscopy Family History Father No problems noted. Mother No problems noted. Brother Hypertension Other Substance abuse Social History Housing: Condominium Alcohol intake: current Alcohol intake frequency: holidays/special occasions only Alcohol type: wine Patient Tobacco Use Status: Former Tobacco user Tobacco use type: Cigarette e-Cigarette/Vaping Use: Never Used service: No Current occupational status: retired Cognitive needs: No Hearing needs: No Vision needs: Yes Review of Systems Const All systems reviewed & are unremarkable except as noted in HPI and below Physical Exam Vital Signs: Last Vital Signs Temp 97.7 F 04/08/25 12:13 Pulse 64 04/08/25 12:13 BP 146/94 H 04/08/25 12:13 Pulse Ox 99 04/08/25 12:13 Oxygen Delivery Method Room Air 04/08/25 12:13 BMI result Body Mass Index 22.5 Const General: cooperative, healthy appearing, comfortable and no acute distress Nutritional Appearance: average body habitus Limitations: no limitations HEENT Head: Yes normal to inspection Ears: hearing grossly normal bilaterally, external ears normal and TM's normal bilaterally General nose exam: Normal external nose present Face and sinus: Yes normal facial exam Mouth: Normal oral and palatal mucosa present Throat: Yes posterior oropharynx normal Neck Neck: Yes no lymphadenopathy Resp Effort & Inspection: normal respiratory effort Auscultation: clear to auscultation bilaterally Cardio Rate: regular rate Rhythm: regular rhythm Skin General skin exam: no rashes or lesions noted Neuro General: gait normal and no focal motor deficits Cognition (Neuro): normal cognition Extrem General: Yes capillary refill normal and Yes no clubbing, cyanosis or edema Psych Appearance: grossly normal Mental Status: mental status grossly normal Speech and movement: Normal speech and movement present Assessment & Plan Assessment & Plan (1) Vertigo: Code(s): R42 - Dizziness and giddiness Plan: Patient has recurrence of mild vertigo as of this morning. She also has sensation of ear fullness, mild nausea, and has had some loose stools. Symptoms likely represent viral illness. Ear assessment normal. No resp symptoms. She has meclizine which has provided some relief since taking it this morning. She has Fexofenadine which she can also take, however we reviewed avoiding taking both antihistamines simultaneously due to potential sedative s/e. I offered ondansetron rx, however patient declined. COVID, flu, RSV swab was obtained, and patient aware she will be notified of results once these are available. Advised increased hydration and healthy food intake. If symptoms persist or worsen despite time and conservative measures, she can return to the clinic or PCP for further evaluation. Patient and present at visit both verbalized understanding and agreed to plan. Orders: Orders SARS-CoV2/FLU/RSV Today R09.89 - Other specified symptoms and signs involving the circulatory and respiratory systems Coding Level of Care Code Est Pt Level 4 (61362) Diagnoses Vertigo R42
--- OUTSIDE RECORDS SUMMARY | 2025-04-08 14:54 | XMS_ITS | Patient Health Record ---
Author Organization [facility] Address [address] [place] [address] Care Team Providers Care Aluminum Fabrication Supervisor Name Role Phone Jaspreet MIKE, Pool Primary Care Provider Servando Alva [phone] Allergies Allergen (clinical drug ingredient) Drug/Non Drug [...] Family History of Cancer of Colon (Situation) (623996616) Family history of colon cancer (V16.0) Active confirmed Problem Colon cancer screening (958611517) Colon cancer screening (V76.51) Active confirmed Problem Peptic ulcer disease (19285175) Peptic ulcer disease (533.90) Active confirmed Plan Of Treatment Future Test Test Name Order Date UPPER GI ENDOSCOPY 06/19/2013 COLONOSCOPY 06/19/2013 Insurance Providers Payer Name Payer Address Payer Phone Subscriber Number Group Number Insured Name Patient Relationship to Insured Coverage Start Date Coverage End Date [facility] [address] [facility] [place] [phone] [id number] STEFANIBAL Self - patient is the insured Medical (General) History Medical History History ICD Code colonoscopy 04/30/2008 and 2002--negative for polyps Diverticulosis seen on the colonoscopies Denies AK,DM,CVA,Lung disease,renal dise ase At [facility] 10/2012--she describe s ? of a perforated ulcer--did not need surgery-saw Dr. Vela--did not have an endoscopy--told of a negative H.pylori serology Surgical History Surgery Date(Month/Year) breast biopsies which were benign blocked salivary gland 2009
--- OUTSIDE RECORDS SUMMARY | 2025-04-08 14:54 | XMS_ITS | Clinical Summary ---
Author Organization LL [address] [place] [address] Address [address] [place] [address] Phone Care Team Providers Care Pricing Coordinator Name Role Phone Carolina Fairbanks MD Primary Care Provider Allergies Active Allergy [...] 5 hours before your procedure. 4000 mL 08/21/19 25 Active bisacodyL (DULCOLAX) 5 mg EC tablet Take 2 tablets by mouth right before beginning bowel prep. See instructions provided by the office 2 tablet 08/21/19 25 Active fexofenadine (TANK) 180 mg tablet Take 1 tablet (180 mg total) by mouth 1 (one) time each day if needed. 06/07/19 25 Active atorvastatin (LIPITOR) 40 mg tablet Take 1 tablet (40 mg total) by mouth 1 (one) time each day. 05/29/19 25 Active carvediloL (COREG) 3.125 mg tablet Take 1 tablet (3.125 mg total) by mouth 2 (two) times a day. 07/11/19 25 Active fluticasone propionate (FLONASE) 50 mcg/actuation nasal spray SPRAY 2 SPRAYS NASALLY ONCE DAILY 06/01/19 25 Active meclizine (ANTIVERT) 25 mg tablet Take 1 tablet (25 mg total) by mouth 3 (three) times a day if needed for dizziness. 06/18/19 25 Active meclizine (ANTIVERT) 12.5 mg tablet Take 1 tablet (12.5 mg total) by mouth 3 (three) times a day if needed for dizziness. 07/23/19 25 Active omega-3 fatty acids/fish oil (OMEGA 3 [...] by mouth at bedtime. 2 TABLESPOONS Active omeprazole (PriLOSEC) [address] capsuleIndicati ons:Gastroesoph ageal reflux disease without esophagitis Take 1 capsule (20 mg total) by mouth 2 (two) times a day. 180 each 3 04/06/20 25 026 Active omeprazole (PriLOSEC) [address] capsule Take 1 capsule (20 mg total) by mouth 1 (one) time each day. 07/16/19 25 025 Discontin ued(Reord er) Encounters Date Type Department Care Team Description 04/01/2025 9:55 AM EST - 04/01/2025 11:59 PM EST Hospital [facility]counter [facility] [address] [place] [address] Encounter for screening mammogram for breast cancer Discharge Disposition: Home or Self Care 03/10/2025 Telephone Gastroenterology - [address] [address] Preston Barnhart MD 01/12/2025 Telephone Gastroenterology - [address] [address] Preston Barnhart MD from Last 3 Months Surgical History Surgery Date Site/Laterality Comments BREAST LUMPECTOMY Right benign Medical History Medical History Date Comments Hyperlipidemia [...] 09/03/2024 Verbal Abuse Unrecognized value 09/03/2024 Comments No Sex and Gender Information Value Date Recorded Sex Assigned at Female 09/03/2024 11:01 AM EDT Legal Sex Female 4:14 PM EST Gender Identity Female 09/03/2024 11:01 AM EDT Sexual Orientation Straight 09/03/2024 11 :01 AM EDT Obstetrics History Para Term AB IAB SAB Ectopic Multiple Livin g Live Births 2 Last Filed Vital Signs Vital Sign Reading Time Taken Comments Blood Pressure 145/84 09/03/2024 12:40 PM EDT Pulse 53 09/03/2024 12:40 PM EDT Temperature 36.3 C (97.3 F) 09/03/2024 12:20 PM EDT Respiratory Rate 19 09/03/2024 12:40 PM EDT Oxygen Saturation 100% 09/03/2024 12:40 PM EDT Inhaled Oxygen Concentration - - Weight 52.2 kg (115 lb) 04/01/2025 10:12 AM EST Height 152.4 cm (5') 04/01/2025 10:12 AM EST Body Mass Index 22.46 04/01/2025 10:12 AM EST Plan of Treatment Upcoming Encounters Date Type Department Care Team (Late st Contact Info) Description 10/07/2025 11:00 AM EDT Office Visit Gastroenterology - [address] [place] [id number] Virgen Frank, MANAGER PIPELINE [address] [facility] [address] [place] [address] Health Maintenance Due Date Last Done Comments Hepatitis C Screening 04/26/2022 Medicare Annual Wellness Visit 04/26/2022 Social Influencers of Health Screening 04/26/2022 Depression Screening 05/28/2024 COVID-19 Vaccine ( season) 2025 04/02/2024, 03/22/2023, 03/13/2022, Additional history exists Falls Risk Assessment 09/03/2025 09/03/2024 Breast Cancer Screening 04/01/2027 04/01/20 25, 03/19/2024, 02/07/2023, Additional history exists DTaP,Tdap,and Td Vaccines (2 - Td or Tdap) 08/21/2031 08/20/2021 Osteoporosis Screening (Bone Density Screening) 02/03/2032 02/02/2022 Colorectal Cancer Screening: Colonoscopy 09/03/2034 09/03/2024, 05/07/2019 Zoster Vaccines Completed 05/03/2020, 03/01/2020 Pneumococcal Vaccine: 50+ Years Completed 04/04/2022, 03/03/2019, 03/27/2018 RSV Immunization Adult Patients Completed 03/24/2025 Influenza Vaccine Completed 03/30/2025, , 03/12/2023, Additional history exists HIB Vaccines Aged Out [...] Procedure Name Priority Date/Time Associated Diagnosis Comments MG MAMMO DIGITAL SCREENING W JAIME BILAT Routine 04/01/2025 10:27 AM EST Encounter for screening mammogram for breast cancer COLONOSCOPY Routine 09/03/2024 12:19 PM EDT Personal history of other colon polyps Family history of colonic polyps Family history of colon cancer DIEGO DEXA AXIAL SKELETON Routine 02/02/2022 7:39 AM EDT Encounter for screening for osteoporosis from Last 3 Months or Most Recently Relevant to Health Maintenance Results * MG Mammo Digital Screening w Jaime bilat (04/01/2025 10:27 AM EST) Anatomical Region Laterality Modality Breast Bilateral Mammography 04/02/2025 11:2 1 AM EST Impressions 04/02/2025 11:22 AM EST No evidence of breast malignancy. BI-RADS CATEGORY: 1 - NEGATIVE RECOMMENDATION: Screening bilateral mammogram is recommended in 1 year. Mammo Location: [facility], [address] [place] [address], [address], . -------- FINAL REPORT -------- Dictated By: Rahel Randle Dictated Date: 04/02/2025 11:21 ET Assigned Physician: Rahel Randle Reviewed and Electronically Signed By: Rahel Randle Signed Date: 04/02/2025 11:22 ET Workstation ID: [id number] Transcribed By: Self Edit Transcribed Date: 04/02/2025 11:21 ET Narrative 04/02/2025 11:22 AM EST CLINICAL: 74 years old, Female, routine annual exam. COMPARISON: Multiple prior studies dating back to 2019 TECHNIQUE: Bilateral MLO and CC views were obtained digitally with 3-D mammogram (digital breast tomosynthesis). Computer-aided detection was utilized in evaluation of this exam (CAD). FINDINGS: There is no evidence of suspicious mass or architectural distortion. No worrisome calcifications are evident. There has been no significant change from prior exam(s). BREAST DENSITY: B - There are scattered areas of fibroglandular density. Procedure Note Rahel Randle MD - 04/02/2025 CLINICAL: 74 years old, Female, routine annual exam. COMPARISON: Multiple prior studies dating back to 2019 TECHNIQUE: Bilateral MLO and CC views were obtained digitally with 3-Dmammogram (digital breast tomosynthesis). Computer-aided detection wasutilized in evaluation of this exam (CAD). FINDINGS: There is no evidence of suspicious mass or architectural distortion. Noworrisome calcifications are evident. There has been no significantchange from prior exam(s). BREAST DENSITY: B - There are scattered areas of fibroglandular density. IMPRESSION: No evidence of breast malignancy. BI-RADS CATEGORY: 1 - NEGATIVE RECOMMENDATION: Screening bilateral mammogram is recommended in 1 year. Mammo Location: [facility], [address] [place] [address], [id number], . -------- FINAL REPORT -------- Dictated By: Rahel Randle Dictated Date: 04/02/2025 11:21 ET Assigned Physician: Rahel Randle Reviewed and Electronically Signed By: Rahel Randle Signed Date: 04/02/2025 11:22 ET Workstation ID: [id number] Transcribed By: Self Edit Transcribed Date: 04/02/2025 11:21 ET us Self Referral Sppl IMG BI PROCEDURES Final Resul t * COLONOSCOPY Anesthesia - MAC; SP ENDOSCOPY (09/03/2024 12:19 PM EDT) Anatomical Region Laterality Modality Endoscopy 09/03/2024 12:0 6 PM EDT Impressions 09/03/2024 12:21 PM EDT - The entire examined colon is normal on direct and retroflexion views. - No specimens collected. Recommendation: - Repeat colonoscopy in 5 years for surveillance. Narrative 09/03/2024 12:21 PM EDT [facility] GI Patient Name: Anibal Alfaro [...] history of colonic polyps CPT copyright 2020 [employer]. All rights reserved. The codes documented in this report are preliminary and upon pyrometer temperature regulator review may be revised to meet current compliance requirements. Preston Barnhart MD 09/03/2024 12:21:14 PM This report has been signed electronically.Preston Barnhart MD Number of Addenda: 0 Note Initiated On: 09/03/2024 12:06 PM Scope In: Scope Out: Endoscopy Department at [facility] - [address] [place] [phone] Procedure Note Preston Barnhart MD - 09/03/2024 [facility] GI Patient Name: Anibal Alfaro [...] history of colonic polyps CPT copyright 2020 [employer]. All rights reserved. The codes documented in this report are preliminary and upon pyrometer temperature regulator reviewmay be revised to meet current compliance requirements. Preston Barnhart MD 09/03/2024 12:21:14 PM This report has been signed electronically.Preston Barnhart MD Number of Addenda: 0 Note Initiated On: 09/03/2024 12:06 PM Scope In: Scope Out: Endoscopy Department at [facility] - [address] [place] [phone] IMPRESSION: - The entire examined colon is normal on direct and retroflexion views. - No specimens collected. Recommendation: - Repeat colonoscopy in 5 years for surveillance. us Preston Barnhart MD GI~PROCEDURE ORDERABLES Fin al Result * DIEGO DEXA AXIAL SKELETON (02/02/2022 7:39 AM EDT) Anatomical Region Laterality Modality Mammography 02/01/2022 9:54 AM EDT Narrative 02/02/2022 7:39 AM EDT [facility] Diagnostic Imaging Department [address] [place] [address] Patient: ANIBAL ALFARO Yamile Garcia/Age/Sex: 1950 - Unit#: [id number] Location/Status: SPDIMAM/REG CLI Mnemonic[facility] Ordering Physician: NANO PENALOZA MD Diego Dexa [...] probability of hip fracture of 6.6%. Code 90346 Dictating Physician: NIKO HAWTHORNE MD Electronically Signed by: NIKO HAWTHORNE MD Dic Date/Time: 02/02/2238 Sign date/Time: 02/02/2239 Procedure Note Niko Hawthorne MD - 05/17/2022 [facility] Diagnostic Imaging Department [address] [place] [address] Patient: ANIBAL ALFARO Yamile ValenciaB./Age/Sex: 1950 - 71 - F Unit#: [id number] Location/Status: [facility] Mnemonic/Ordering Site[facility] Ordering Physician: NANO PENALOZA MD Diego Dexa [...] density of the femurs bilaterally is 0.745 gm/wf3jmejl is 74% of that of young normals [...] probability of hip fracture of 6.6%. Code 38088 Dictating Physician: NIKO HAWTHORNE MD Electronically Signed by: NIKO HAWTHORNE MD Dic Date/Time: 02/02/22737 Sign date/Time: 02/02/22738 Nano Penaloza MD IMG BI PROCEDURES Final Result from Last 3 Months or Most Recently Relevant to Health Maintenance Insurance [employer] [place] MEDICARE [place]VANTAGE Care Teams Pricing Coordinator Relationship Specialty Start Date End Date Carolina Fairbanks MD [address] [place] [address] PCP - General Internal Medicine 09/02/24
--- OUTSIDE RECORDS SUMMARY | 2025-04-08 14:54 | XMS_ITS | Encounter Summary ---
Author Organization [facility] Address [address] [place] [address] Care Team Providers Care Overnight Babysitter Name Role Phone Carolina Fairbanks MD Primary Care Provider Encounter Details Date Type Department Care Team (Latest Contact Info) Description 05/06/2024 Lab Requisition [facility] - Main Lab [address] [facility] [place] [address] Jorge Luis Penaloza MD 299 [facility] [address] [place] [phone] Encounter for gynecological examination (general) (routine) without [...] Office Visit Gastroenterology - [address] [facility] [address] [place] [phone] Virgen Frank NP 299 [facility] [address] [place], [place] [phone] documented as of this encounter Procedures Procedure Name Priority Date/Time Associated Diagnosis Comments PAP SMEAR Routine 05/05/2024 12:00 AM EST Encounter for gynecological examination (general) (routine) without abnormal findings documented in this encounter Results * Pap smear (05/05/2024 12:00 AM EST) Interpretation Negative for intraepithelial lesion or malignancy 05/07/2024 6:20 PM EST [facility] General Categorization Negative 05/07/2024 6:20 PM EST [facility] Other Findings Atrophy 05/07/2024 [...] screening system. Technical cytopathology services provided by [facility], at [address] [place] [address] (CLIA # [id number]/Gita Barragan MD, Geospatial Engineer.) 05/07/2024 6:20 PM [facility] Console Pap Interpretation Reported 05/07/2024 6:20 PM [facility] Brushing/Spatula Cervix uteri structure / Unknown 05/05/2024 05/06/2024 8:41 AM EST us Jorge Luis Penaloza MD LAB CYTOLOGY ORDERABLES Final Result [facility] [address] [place] [address], documented in this encounter Visit Diagnoses Diagnosis Encounter for gynecological examination (general) (routine) without abnormal findings documented in this encounter Care Teams Overnight Babysitter Relationship Specialty Start Date End Date Carolina Fairbanks MD [address] [place] [address] PCP - General Internal Medicine 09/02/24 documented as of this encounter
--- OUTSIDE RECORDS SUMMARY | 2025-04-08 14:54 | XMS_ITS | Data Portability ---
Author Organization [place] - [facility], Allergy Address [address] [address] Assessment Encounter Date Assessment Date Assessment LastModified by Organization Details LastModified Time 07/30/2024 07/30/2024 74-year-old female presents for evaluation of dizziness. On exam, bilateral tympanic membranes are intact with well aerated middle ear spaces. Audiometric testing demonstrated normal sloping to moderate high-frequency sensorineural hearing loss bilaterally. Patient has been referred to vestibular therapy and I recommended that she contact [facility] to proceed. She will follow-up yearly for audiometric testing, or sooner if symptoms persist or worsen. [email or web address] Not available 07/30/2024 16:38:13 Plan of Treatment [...] Sensorine ural hearing loss of bilateral ears 816997009 Active 2022 Sensorine ural hearing loss, bilateral ; Note: Date Diagnosed : 12/01/2022 3:46 PM (H90.3) Not Available [facility] 02:51:35 Respirato ry finding 070754264 Active 2022 Feeling of foreign body in throat; Note: Date Diagnosed : 12/01/2022 3:55 PM (R09.89) Not Available [facility] 4 02:51:30 Cardiovas cular finding 804485759 Active 2022 Feeling of foreign body in throat; Note: Date Diagnosed : 12/01/2022 3:55 PM (R09.89) Not Available [facility] 4 02:51:30 Abnormal auditory perceptio n 05642553 Active 2022 Other abnormal auditory perceptio ns, bilateral ; Note: Date Diagnosed : 12/01/2022 3:55 PM (H93.293) Not Available [facility] 4 02:51:35 Dysphonia 41254438 Active 2022 Hoarsenes s; Note: Date Diagnosed : 01/17/2023 9:26 AM (R49.0) Not Available [facility] 4 02:51:29 Pharyngea l dysphagia 70107395391 105 Active 2022 Dysphagia , pharyngea l phase; Note: Date Diagnosed : 11/09/2021 5:46 PM (R13.13) Not Available [facility] 4 02:51:35 Finding of resonance of voice 315729104 Active 2022 Other voice and resonance disorders ; Note: Date Diagnosed : 11/09/2021 5:46 PM (R49.8) Not Available [facility] 4 02:51:30 Deviated nasal septum 443950389 Active 2022 Deviated nasal septum; Note: Date Diagnosed : 03/28/2023 10:37 AM (J34.2) Not Available [facility] 4 02:51:31 Disorder of nasal sinus 8092496 Active 2022 Other specified disorders of nose and nasal sinuses; Note: Date Diagnosed : 03/28/2023 10:37 AM (J34.89) Not Available [facility] 4 02:51:32 Disorder of the nose 81153383 Active 2022 Other specified disorders of nose and nasal sinuses; Note: Date Diagnosed : 03/28/2023 10:37 AM (J34.89) Not Available [facility] 4 02:51:32 Dizziness and giddiness 680004382 Active 2024 EMILIA SETHI PA-C [address] [facility],[place] [address], [place], [address] , [facility] 5 16:35:58 Problem Notes None recorded. Procedures Surgical History Date Name Laterality Status Provider Name and Address Organization Details Recorded Time 07/30/2024 Comp Audio with Tymps - 31372 & 32170 completed CHRISTIANO STEVENS [address] [facility] [address], [place], [address], [facility] 07/30/2024 15:40:33 Imaging Results None recorded. Procedure Notes None recorded. Medical Equipment None Reported. Allergies Allergen ID Allergen Name Allergen Category Reaction Reaction Severity Criticality Documentation Date Start Date Code Code System Note Provider Name and Address Organization Details Recorded Time 145189 Flagyl medicatio n Not available Not available Not available 10/09/202355767 6 RxNorm React ion: [place] l sympt om; Not Available [facility] 4 01:20:34 [id number] Avelox medicatio n dizziness Not available Not available 10/09/2023 00438 6 RxNorm React ion: Dizzi ness; Not Available [facility] 4 01:20:34 Medications Name Sig Start Date [...] Updated DateTime 07/30/2024 152.4 cm 22.5 kg/m2 76261.12 g Lucille Vasquez [place] - [facility] 07/30/2024 15:02:24 Social History None recorded. Functional Status None recorded. Mental Status None recorded. Family History Nothing Reported. Medical History No medical history recorded. Gynecological HistoryNo gynecological history recorded. Obstetrics History GPAL:G 0 P 0 0 0 0 Past Encounters Encounter ID Performer Location Encounter Start Date Encounter Closed Date Diagnosis/Indication Diagnosis SNOMED-CT Code Diagnosis ICD10 Code Diagnosis IMO Codes Diagnosis Note [id number] EMILIA SETHI PA-C [facility] [address] [address] 07/30/2024 14:48:42 07/30/2024 16:24:37 Sensorineural hearing loss of bilateral ears 613150945 H90.3 Audiologic al evaluation results: Right ear: Normal through 3 kHz sloping to moderately severe sensorineu ral hearing loss with excellent word recognitio n. Left ear: Normal sloping to a moderate sensorineu ral hearing loss with excellent word recognitio n. Tympanomet ry: Right Ear:Type A Left Ear:Type A Dizziness and giddiness 960719519 R42 Health Concerns Section Related Observation LastModified by Organization Detai ls LastModified Time None Recorded Concern Status LastModified by Organization Details LastModified Time None Recorded Advance Directives Directive None Recorded Payers Insurance Date Sequence Insurance Name Policy Number Policy Ojeda Covered Member ID Ojeda Member ID Guarantor Name 07/30/2024 1 [facility]: MEDICARE HMO BLUE (MEDICARE REPLACEMENT HMO) [id number] Zamzam Alfaro [id number] Zamzam Ovalle Angelina Notes Date Note Type Note Provider Name and Address Organization Details Recorded Time 07/30/2024 text/html ROS as noted in the HPI 74-year-old female presents for evaluation of dizziness. She reports about 1 month ago, she was put on prednisone for right ear effusion by urgent care. On 07/07, she went to [facility] for dizziness described as rocking on [...] resolved without vestibular therapy. FRANK COLES MD [address] [place] [address], [phone], [facility] - [facility] 07/30/2024 17:03:04 OBGyn Episode No OBEpisode recorded.
== END 2025-04-08 12:56 | disposition home or self-care (01) ==
PROVIDERS: PCP Internal Medicine; Visit Provider Nurse Practitioner Family
DX: R42 Dizziness and giddiness (principal)

== ENCOUNTER 2025-04-08 12:03 | Outpatient (REF) | payer MEDICARE, SELFPAY ==
[2025-04-08 17:25] LABS: Resp Syncy Virus RNA Qual PCR NEGATIVE (Negative); SARS COV2 PCR INHOUSE NEGATIVE (Negative)
== END 2025-04-08 12:04 | disposition home or self-care (01) ==
LOC: HO.LAB 12:03
PROVIDERS: PCP Internal Medicine; Visit Provider Nurse Practitioner Family
DX: R42 Dizziness and giddiness (principal); R09.89 Other specified symptoms and signs involving the circulatory and respiratory systems
CPT/HCPCS: 87637; 99212